=== PATIENT | female | born 1945 | race Caucasian/White ===

== ENCOUNTER 2017-07-19 08:30 | Inpatient (IN) | payer MEDICARE ==
[~2017-07-19] VITALS: Ht 157.4 cm; Wt 66.4 kg
--- NOTE | ~2017-07-19 | PR ---
[place], [place] PROGRESS NOTE NAME: HERBERT MAN [facility] #: [id number] UNIT #: [id number] ROOM: 419 DOCTOR: RENARD DILAN BIRTHDATE: [birth year] DOS: 07/21/2017 SUBJECTIVE: The patient was seen and examined at bedside. The patient was sitting upright, in no acute distress. The patient reports that she is feeling much better today compared to yesterday. The patient reports that she feels well enough to go home today if we feel that she is stable. The patient requests also to be able to follow up with Dr. Farnsworth as outpatient so that she can avoid having to come back to the hospital in the future. The patient reports that she has an intermittent dry cough that is not severe and that her shortness of breath and wheezing have improved dramatically since admission. OBJECTIVE: VITAL SIGNS: Temperature is 97.8, pulse is 72, respirations 18, blood pressure 120/62, pulse ox 94% on room air. HEENT: Eyes were clear. No injection. Mucous membranes were moist. Nares were patent. NECK: Supple, nontender. LUNGS: Mild wheezing. No crackles were appreciated. CARDIAC: Regular rate and rhythm. No murmurs, gallops or rubs. S1 and S2 were noted. ABDOMEN: Soft and nontender. Bowel sounds were present. MUSCULOSKELETAL: No edema. No erythema. No clubbing or cyanosis. NEUROLOGIC: Cranial nerves were intact. SKIN: No rashes. LABORATORY DATA: Sodium is 141, potassium 3.7, chloride 106, carbon dioxide 26, BUN 22, creatinine 0.89, glucose is 122. IMPRESSION: 1. History of tobacco abuse. The patient did well with the patch overnight and is going to try to quit smoking with the patch upon discharge. The patient has some anxiety and is worried that the patch may cause her to become more anxious. These issues were discussed with her and all of her questions were answered. 2. History of generalized anxiety disorder. 3. Mild obesity. 4. Chronic obstructive pulmonary disease with acute exacerbation. TREATMENT PLAN: At this time the patient can be discharged as she is medically stable. Discharged with a steroid taper and oral antibiotics and Diflucan. The patient to follow up with Dr. Farnsworth. The patient can call the office and schedule an appointment at her own leisure. DILAN GLYNN DO [place], [place] PROGRESS NOTE NAME: HERBERT MAN UNIT #: [id number] ROOM: 419 DOCTOR: DILAN GLYNN DO BIRTHDATE: [birth year] DEBORAH FARNSWORTH MD CM:PNZHANG [id number] DILAN GLYNN DO 07/21/17 1922 interface
--- NOTE | ~2017-07-19 | PROC NOTE ---
[place], [place] PROCEDURE NOTE NAME: HERBERT MAN UNIT #: [id number] ROOM: 419 DOCTOR: JOAN MOREL BIRTHDATE: [birth year] DOS: 07/20/2017 MODIFIED BARIUM SWALLOW. LOCATION: [facility], room 419, bed 1. ORDERING PHYSICIAN: Dr. Arreguin. RADIOLOGIST: Dr. Hahn. BACKGROUND INFORMATION: The patient, a 71-year-old female was seen for a modified barium swallow. This test was ordered to rule out aspiration due to right middle lobe pneumonia. The patient was admitted with increased shortness of breath. MEDICAL HISTORY: Significant for COPD exacerbation, depression, anxiety, diverticulitis and bladder prolapse. The patient denied any swallowing difficulty, but stated that at times when her mouth is dry, she finds it a little more difficult to get the food down. She currently receives a regular diet and thin liquids. Oral peripheral examination revealed presence of natural teeth which were in good condition. Lingual, labial, and buccal skills were within normal limits in terms of strength, range of motion, and coordination. The patient was able to volitionally cough and swallow. METHODS AND MATERIALS USED FOR THE EXAM: The patient was positioned in the lateral plane and the examination was viewed under fluoroscopy. The patient was presented with a variety of consistencies to assess swallowing skills including applesauce mixed with barium presented in half teaspoon amounts, barium-coated cookie given in bite size piece and thin liquid barium taken by cup and straw in her regular sip size amount. ORAL PHASE: Unremarkable. PHARYNGEAL PHASE: Unremarkable. ESOPHAGEAL PHASE: This phase of the swallow was not formally assessed during this exam. IMPRESSIONS AND RECOMMENDATIONS: Based upon assessment results, this 71-year-old patient presents with swallowing skills that are within normal limits. Recommend she remains on present diet. No followup therapy is warranted. Results and recommendations were shared with the patient and her nurse and they verbalized understanding. Thank you very much for this referral. Should you have any questions regarding this patient, please contact the speech pathologist at [phone]. [place], [place] PROCEDURE NOTE NAME: HERBERT MAN UNIT #: [id number] ROOM: 419 DOCTOR: JOAN MOREL BIRTHDATE: [birth year] JOAN MORLE CUCO ARREGUIN DO CM:LAITH:PROCEDURE NOTE [id number] JOAN MOREL
--- NOTE | ~2017-07-19 | PR ---
[place], [place] PROGRESS NOTE [id number] UN[facility] #: [id number] ROOM: 419 DOCTOR: JAVAD WALKER MD,DEBORAH BIRTHDATE: [birth year] DOS: 07/21/2017 PULMONARY ADDENDUM NOTE The patient was independently seen and examined with [id number] encounter today. SUBJECTIVE: The assessment was personally completed, physical examination performed. All the labs were reviewed. The decision for patient medical management and changes or recommendation personally made for today's visit. Note done by the medical attendant, was approved. The patient has been showing gradual reduction and improvement in respiratory symptoms including cough. Cough has been noted with the patient, nonproductive. However, the frequency and intensity of cough has been decreased. Shortness of breath and wheezing was also described reduced by the patient. OBJECTIVE: VITAL SIGNS: Reviewed was noted as normal vital signs. Pulse oxygen saturation on room air was 94% saturation. LUNGS: The patient noted with this reduction and improvement in the wheezing. At this time minimal wheezing was present. ABDOMEN: Soft, nontender. LABORATORY DATA: CT scan chest of the patient without contrast. The patient does not show any evidence of pulmonary infiltration or other abnormality including suspected nodules or mass lesions. PLAN OF MANAGEMENT: The patient could be considered for home discharge, tapering dose of prednisone, oral antibiotic, long-term management of COPD medication, outpatient assessment recommended, post-discharge. DEBORAH FARNSWORTH MD CM:PNTRANS [id number] DEBORAH WALKER MD 07/21/17 1520 interface
--- NOTE | ~2017-07-19 | CON ---
[place], [place] REPORT OF CONSULTATION [id number] UNIT #: [id number] ROOM: 419 DOCTOR: DEBORAH DAMIAN MD BIRTHDATE: [birth year] DOS: 07/20/2017 PULMONARY CONSULTATION, EVALUATION AND MANAGEMENT CONSULTATION REQUESTED BY: Hospitalist services. REASON FOR CONSULTATION: For assessment of shortness of breath. HISTORY OF PRESENT ILLNESS: This is a 71-year-old white female with past known history of COPD. The patient stated she has been experiencing increased anxiety symptoms for the last several days. She has been started on the Zoloft. The symptom has been noted progressively worsening. The patient's symptoms of shortness of breath has been noted significantly worsened. She was also noted with wheezing and nonproductive cough as well. The patient reported the symptoms of shortness of breath has been worsened because of the current anxiety disorder. She complained of excessive severe chest tightness. There were no symptoms of chest pain reported. The patient came into the hospital for further assessment because of worsening of the respiratory symptoms. The coughing has been noted worsened as well, noted to be nonproductive and severe at times. She is not able to expectorate any sputum. REVIEW OF SYSTEMS: CONSTITUTIONAL SYMPTOMS: Fatigue and tiredness noted without symptoms of fever or chills. EYES: Denies burning, redness, tenderness. EARS, NOSE, THROAT SYMPTOMS: Denies sore throat, hoarseness, otalgia, postnasal drainage or epistaxis. CARDIOVASCULAR: Denies anginal pain, edema, pain of the lower extremities, palpitations, or syncopal episodes. GASTROINTESTINAL: Dysphagia, nausea, vomiting, diarrhea, abdominal pain, hematemesis, melena, or hematochezia. SKIN: Denies lesions or rashes. GENITOURINARY SYMPTOMS: Denies dysuria, suprapubic pain, or hematuria. MUSCULOSKELETAL: Denies acute joint pain, redness, or tenderness. CENTRAL NERVOUS SYSTEM: Denies dizziness, headache, or diplopia. PSYCHIATRIC SYMPTOMS: Severe increased anxiety was described at this time. There were no symptoms of depression. Remaining systems were reviewed. They were noted all negative. PAST MEDICAL HISTORY: Reported as: 1. History of COPD. 2. Past history of tobacco use as well. 3. History of bronchial asthma, severity unknown. 4. History of major depression. PAST SURGICAL HISTORY: Reported as no past surgeries. SOCIAL HISTORY: She stated , has 2 children. Smoking, the patient started at younger age and smoking about a pack of cigarettes per day. Denies [place], [place] REPORT OF CONSULTATION NAME: HERBERT MAN UNIT #: [id number] ROOM: [facility] DOCTOR: DEBORAH DAMIAN MD BIRTHDATE: [birth year] history of alcohol use or any illicit drug use. FAMILY HISTORY: Both parents have been . The details were unknown. HOME MEDICATIONS: Listed as use of the ProAir HFA inhaler, Symbicort 80/4.5 HFA inhaler 2 puffs b.i.d., Ativan, lorazepam, Singulair 10 mg daily, Zoloft, recent prescription 50 mg daily and Spiriva 1 capsule inhalation daily. DRUG ALLERGIES: REPORTED ALLERGY TO SULFONAMIDES. PHYSICAL EXAMINATION: GENERAL: This is a 71-year-old female who has been noted somewhat anxious, but is sitting on the side of bed without any acute distress at time of the assessment. Height of the patient recorded as 5 feet 2 inches, weight 146 pounds, BMI 26.7. VITAL SIGNS: Normal temperature, respirations 15-20, heart rate 88-107, blood pressure 110/52. Pulse oxygen saturation on room air was 92% saturation. HEENT: Head was atraumatic. Eyes nonicterus. NECK: Supple. No discharge in the eyes. Oral mucosa was moist. CARDIOVASCULAR SYSTEM: S1, S2 audible without any added sounds. LUNGS: Diffuse reduction in breath sounds. Diffuse moderate to severe expiratory wheezing bilaterally. ABDOMEN: Soft, mild obesity. Bowel sounds present without any tenderness. SKIN: Visible. No lesions or rashes. MUSCULOSKELETAL SYMPTOMS: No deformities. CENTRAL NERVOUS SYSTEM: Cranial nerves 2-12 intact. MUSCULOSKELETAL: No deformities. LABORATORY DATA: The CBC that was done on admission yesterday in the Emergency Room was noted. Eosinophils elevated at 5.8, remaining CBC normal. Lactic acid noted yesterday normal. PT/PTT yesterday normal. CMP that was done yesterday, BUN 19, creatinine 1.09, sodium 135, remaining CMP was normal. The troponin in addition to assess the patient completed yesterday normal. The urine culture, no bacterial growth. PT/PTT, which were repeated again this morning normal. CBC this morning essentially noted as normal CBC at this time. The chest x-ray that was done one view was personally reviewed was noted with an asymmetrical film, possibility of the nodule or density in the right middle lobe cannot be excluded, may be exacerbated because somewhat nonsymmetrical film. The patient was also noted with mild scoliosis of the upper thoracic spine. IMPRESSION: The patient who has been currently admitted noted: 1. History of chronic nicotine dependence, presented with progressive worsening of the respiratory symptoms with acute exacerbation of chronic obstructive pulmonary disease with increased anxiety also occurred related to that. 2. History of generalized anxiety disorder and major depression, which has been treated by psychiatrist with different medication management. 3. History of mild obesity as well. PLAN OF MANAGEMENT: The patient will be continued on bronchodilator as ordered every [address] scan of the chest will be ordered to most definitively [place], [place] REPORT OF CONSULTATION NAME: HERBERT MAN UNIT #: [id number] ROOM: 419 DOCTOR: DEBORAH DAMIAN MD BIRTHDATE: [birth year] exclude any pulmonary problem such as infiltration, mass or lesion in the right middle lobe. Bronchodilators will be given as well 4 hours. Continue previous home medications as well. Continue use of the current antibiotic for community-acquired infection with the use of the Rocephin and Zithromax. Solu-Medrol will be continued at same dose 40 mg b.i.d. Continue Mucinex as well p.r.n. use. In addition, 1200 mg Mucinex tablet will be ordered b.i.d. to help clear secretion, sputum expectoration and endobronchial secretions. If necessary, consider fiberoptic bronchoscopy as well for additional assessment. Monitoring CT scan results closely for additional assessment and recommendation accordingly. Usual care, other supportive plan of therapy and care. Usual medical management as ongoing. Nicotine replacement patches to overcome the nicotine withdrawal has been suggested to this patient to be used. If the patient does expectorate sputum, certainly could be sent for Gram stain and culture as well. Thank you for allowing me to participate in the care of this patient. DEBORAH FARNSWORTH MD CM:CONSTR:REPORT OF CONSULTATION 1756 07/21/17 0425 interface
--- NOTE | ~2017-07-19 | CON ---
[place], [place] REPORT OF CONSULTATION NAME: HERBERT MAN UNIT #: [id number] ROOM: 419 DOCTOR: ELISABETH GIPSON ED.D YOUSIF) BIRTHDATE: [birth year] DOS: 07/19/2017 HISTORY OF PRESENT ILLNESS: The patient is a 71-year-old female referred by the hospitalist for an evaluation regarding her anxiety. At the present time, she is on the 4th floor at [facility]. The patient is and does have 2 children. She was engaged at one time, however, her fiance of a glioblastoma approximately 15 years ago. Since that time, she has been more depressed. 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 This patient's family physician is Dr. Price and medical history is pertinent for anxiety, depression, vitamin D deficiency, and COPD. Her medications include nebulizer with albuterol 3-4 times a day, Levaquin, DuoNeb, Solu-Medrol, Ativan, ProAir, Symbicort, and Spiriva. This patient does smoke 1 pack of cigarettes per day and drinks on occasion. She was awake, alert, and oriented in all three spheres. She states she would like to , but does not have any suicidal ideation or plan. Her short and long-term memory appear to be intact. Her insight, judgment, and concentration are fair. She is following with Adama Larsen, a nurse practitioner at the [facility]. She also has an appointment with therapist Adam next week. I strongly believe she needs long-term counseling. She did follow up in my office over the past several years on occasion and last time I saw her was probably last summer and she was doing much better when she was more active. She has been unable to work for the past 3-4 months due to her depression and anxiety. She stated that she was extremely anxious recently and could not control her anxiety. She was prescribed Zoloft and was feeling more anxious after she took Zoloft for approximately 3 days. She states that she had increased her breathing treatments and takes significant amounts of steroids. It appear to me that the increased breathing treatments have possibly exacerbated her anxiety. She did have anxiety prior to that, but it has been much worse since she did increase her breathing treatments. Obviously, Zoloft is not a good drug for this patient because she is fearful of it and does not want to take it again, although she said she would. She could possibly take Paxil or some other drug that was an antidepressant that would work in combination with the Ativan that she takes twice a day. She does need to continue with her outpatient psychotherapy. She is not suicidal, but has chronic depression. DIAGNOSIS: Major depressive disorder, recurrent. RECOMMENDATIONS: 1. The patient should continue to follow at the counseling center. 2. The patient should discuss her use of multiple steroid medications for her breathing with her hospitalist and primary care physician. Thank you very much for this consult. [place], [place] REPORT OF CONSULTATION NAME: HERBERT MAN UNIT #: [id number] ROOM: 419 DOCTOR: ELISABETH GIPSON ED.D (RADHA) BIRTHDATE: [birth year] ELISABETH GIPSON ED.D CM:CONSTR:REPORT OF CONSULTATION 1519 07/20/17 0147 interface
[~2017-07-19 08:30] MED LIST: ALBUTEROL0.09 MG/A2 IH; ALBUTEROL2.5 MG/0.5 INH; ATIVAN0.5 MG PO; ATROVENT I0.5 MG/2.5 INH; CENTRUM SILVER1 TA1 PO; KLONOPIN0.5 MG PO; LORAZEPAM0.5 MG PO; MACROBID100 M1 PO; MEDROL DOSEPAK4 MG PO; MELATONIN3 MG PO; Mysoline50 MG PO; NASONEX0.05 MG/AC NS; OSCAL,OYSTER S500 MG PO; PREDNISONE10 MG PO; PREDNISONE20 M1 PO; PROAIR HFA0.09 MG/AC INH; PROAIR HFA8.5 GM INH; PROZAC10 MG PO; PYRIDIUM200 M1 PO; SINGULAIR10 MG PO; VIBRAMYCIN100 MG PO; VIIBRYD40 PO; VISTARIL25 M2 PO; VITAMIN B1250 MCG PO; ZITHROMAX Z PA250 MG PO; ZITHROMAX250 MG PO; ZOLOFT100 MG PO; [UNRECOGNIZED DRUG - OTHER] PO
[2017-07-19] MEDS ORDERED: SPIRIVA -- 3018 MCG INH (08:41)
[2017-07-19] MEDS ORDERED: MONTELUKAST SOD10 MG PO (08:42)
[2017-07-19 08:43] VITALS: BP 153/79
[2017-07-19] MEDS ORDERED: SYMB80 INH (08:43)
[2017-07-19] MEDS ORDERED: PROAIR HFA8.5 GM INH (08:43)
[2017-07-19 09:22] LABS: BASO % 0.4 % (0.0-1.0); EOS # 0.6 10*3/uL (0.0-0.4); EOS % 5.8 % (1.0-4.0); HEMATOCRIT 43.3 % (37.0-47.0); HEMOGLOBIN 14.9 g/dl (12.0-16.0); LYMPH # 1.4 10*3/uL (1.3-4.4); MEAN CELL VOLUME 91.9 fl (81.0-99.0); MEAN CORPUSCULAR HGB 31.6 pg (27.0-31.0); MEAN CORPUSCULAR HGB CONC 34.4 g/dl (33.0-37.0); MEAN PLATELET VOLUME 9.8 fl (9.6-12.3); MONO # 0.6 10*3/uL (0.1-1.0); MONO % 5.9 % (3.0-9.0); NEUT # 6.9 10*3/uL (2.3-7.9); NEUT % 72.6 % (47.0-73.0); PLATELET COUNT AUTOMATED 317 10*3/uL (130-400); RED BLOOD COUNT 4.71 10*6/uL (4.10-5.10); RED CELL DISTRI WIDTH 12.3 % (0-14.5); WHITE BLOOD COUNT 9.5 10*3/uL (4.8-10.8)
[2017-07-19 09:31] LABS: ACT PARTIAL THROMBO TIME 22.3 SECONDS (20.8-31.5)
[2017-07-19 09:47] LABS: ALBUMIN 3.3 gm/dl (3.1-4.5); ALKALINE PHOSPHATASE 77 U/L (45-117); BUN 19 mg/dl (7-24); CHLORIDE 101 mmol/L (98-107); CREATININE 1.03 mg/dL (0.55-1.02); LIPASE 111 U/L (73-393); SGOT/AST 18 IU/L (3-35); SODIUM 135 mmol/L (136-145)
[2017-07-19 09:51] LABS: SGPT/ALT 26 U/L (12-78); TROPONIN I < 0.015 ng/ml (<0.045)
[2017-07-19 10:14] VITALS: BP 116/74
[2017-07-19] MEDS ORDERED: ZOLOFT50 MG PO (10:59)
[2017-07-19 11:03] VITALS: BP 131/77
[2017-07-19 13:19] LABS: BILIRUBIN NEGATIVE (NEGATIVE); BLOOD 2+ (NEGATIVE); CLARITY CLOUDY (CLEAR); COLOR YELLOW (YELLOW); GLUCOSE NEGATIVE (NEGATIVE); KETONE NEGATIVE (NEGATIVE); LEUKO ESTERASE 3+ (NEGATIVE); NITRITE POSITIVE (NEGATIVE); PH 5.5 (5.0-9.0); UROBILINOGEN 0.2 E.U./dl (0.2-1.0)
[2017-07-19] MEDS ORDERED: ATIVAN0.5 MG PO (13:19)
[2017-07-19 13:28] LABS: BACTERIA 4+; EPITHELIAL CELLS 15-20; WBC TNTC wbc/hpf (0-5)
[2017-07-19 16:00] VITALS: BP 130/57
[2017-07-19 20:00] VITALS: BP 110/52
[2017-07-20] VITALS: BP 111/54
[2017-07-20 07:19] LABS: HEMATOCRIT 38.5 % (37.0-47.0); HEMOGLOBIN 13.1 g/dl (12.0-16.0); MEAN CELL VOLUME 93.2 fl (81.0-99.0); MEAN CORPUSCULAR HGB 31.7 pg (27.0-31.0); MEAN PLATELET VOLUME 10.1 fl (9.6-12.3); PLATELET COUNT AUTOMATED 278 10*3/uL (130-400); RED BLOOD COUNT 4.13 10*6/uL (4.10-5.10); RED CELL DISTRI WIDTH 12.3 % (0-14.5); WHITE BLOOD COUNT 8.3 10*3/uL (4.8-10.8)
[2017-07-20 07:35] LABS: ALBUMIN 2.9 gm/dl (3.1-4.5); BUN 14 mg/dl (7-24); CHLORIDE 110 mmol/L (98-107); CHOLESTEROL 181 mg/dL (<200); CREATININE 0.73 mg/dL (0.55-1.02); PHOSPHOROUS 2.8 mg/dL (2.5-4.9); SGOT/AST 12 IU/L (3-35); SGPT/ALT 22 U/L (12-78); SODIUM 141 mmol/L (136-145)
[2017-07-20 07:43] LABS: ALKALINE PHOSPHATASE 60 U/L (45-117); FREE T4 1.29 ng/dl (0.76-1.46); HDL CHOLESTEROL 65 mg/dl (40-60); LDL CHOLESTEROL 105 mg/dL (9-159); THYROID STIM HORMONE (HS) 0.351 uIU/ml (0.358-4.75); TOTAL PROTEIN 5.9 gm/dL (6.4-8.2); TRIGLYCERIDES 56 mg/dl (<150); VLDL CHOLESTEROL 11 mg/dL (6-40)
[2017-07-20 08:00] VITALS: BP 116/57
[2017-07-20 08:00] LABS: ACT PARTIAL THROMBO TIME 21.5 SECONDS (20.8-31.5)
[2017-07-20 08:13] LABS: PLATELET SUFFICIENCY NORMAL (NORMAL); TOTAL CELLS COUNTED 100 #CELLS
[2017-07-20 08:44] LABS: VITAMIN D, 25-HYDROXY 23.4 ng/mL (30-100)
[2017-07-20 16:00] VITALS: BP 127/64
[2017-07-20 19:33] VITALS: BP 141/73
[2017-07-20 23:59] VITALS: BP 127/72
[2017-07-21 07:16] VITALS: BP 120/62
[2017-07-21 07:36] LABS: BUN 22 mg/dl (7-24); CHLORIDE 106 mmol/L (98-107); CREATININE 0.89 mg/dL (0.55-1.02); POTASSIUM 3.7 mmol/L (3.5-5.1); SODIUM 141 mmol/L (136-145)
[2017-07-21] MEDS ORDERED: PREDNISONE10 MG PO (10:53)
[2017-07-21] MEDS ORDERED: VITAMIN D-32000 UNI1 PO (10:53)
[2017-07-21] MEDS ORDERED: DOXYCYCLINE100 M3 PO (10:53)
[2017-07-21] MEDS ORDERED: HYDROXYZINE PAM25 M1 PO (10:53)
[2017-07-21] MEDS ORDERED: PAROXETINE10 MG PO (10:53)
[2017-07-21] MEDS ORDERED: FLUCONAZOLE100 MG PO (10:55)
== END 2017-07-21 13:16 | disposition home or self-care (01) | DRG 871 ==
LOC: ED 08:30 → 4E 09:40 → EDHOLD 09:40 → 4E 09:48
PROVIDERS: Emergency Medicine; Family Medicine; Student in an Organized Health Care Education/Training Program
PROC: BD11YZZ Fluoroscopy of Esophagus using Other Contrast (ICD-10-PCS; principal; 2017-07-20)
DX: A41.9 Sepsis, unspecified organism (principal); J18.1 Lobar pneumonia, unspecified organism; N17.0 Acute kidney failure with tubular necrosis; J44.0 Chronic obstructive pulmonary disease with (acute) lower respiratory infection; J44.1 Chronic obstructive pulmonary disease with (acute) exacerbation; E87.1 Hypo-osmolality and hyponatremia; F33.9 Major depressive disorder, recurrent, unspecified; R65.20 Severe sepsis without septic shock; E55.9 Vitamin D deficiency, unspecified; R73.9 Hyperglycemia, unspecified; F17.210 Nicotine dependence, cigarettes, uncomplicated; F41.1 Generalized anxiety disorder; Z88.2 Allergy status to sulfonamides; Z79.899 Other long term (current) drug therapy; Z71.6 Tobacco abuse counseling; Z68.26 Body mass index [BMI] 26.0-26.9, adult; E66.8 Other obesity

== ENCOUNTER 2017-09-20 13:55 | Emergency (ER) | payer MEDICARE ==
[~2017-09-20] VITALS: Ht 162.5 cm; Wt 68.0 kg
[~2017-09-20 13:55] MED LIST changes: +DOXYCYCLINE100 M3 PO; +FLUCONAZOLE100 MG PO; +HYDROXYZINE PAM25 M1 PO; +MONTELUKAST SOD10 MG PO; +PAROXETINE10 MG PO; +SPIRIVA -- 3018 MCG INH; +SYMB80 INH; +VITAMIN D-32000 UNI1 PO; +ZOLOFT50 MG PO
[2017-09-20] MEDS ORDERED: STIOLTO RESPIMAT4 GM INH (13:59)
[2017-09-20 14:04] VITALS: BP 155/81
[2017-09-20 14:24] LABS: HEMATOCRIT 45.7 % (37.0-47.0); HEMOGLOBIN 15.2 g/dl (12.0-16.0); MEAN CELL VOLUME 94.4 fl (81.0-99.0); MEAN CORPUSCULAR HGB 31.4 pg (27.0-31.0); MEAN CORPUSCULAR HGB CONC 33.3 g/dl (33.0-37.0); MEAN PLATELET VOLUME 9.4 fl (9.6-12.3); PLATELET COUNT AUTOMATED 285 10*3/uL (130-400); RED BLOOD COUNT 4.84 10*6/uL (4.10-5.10); WHITE BLOOD COUNT 6.8 10*3/uL (4.8-10.8)
[2017-09-20 14:40] LABS: BUN 12 mg/dl (7-24); CHLORIDE 103 mmol/L (98-107); CREATININE 1.12 mg/dL (0.55-1.02); SODIUM 138 mmol/L (136-145)
[2017-09-20 14:41] LABS: TROPONIN I < 0.015 ng/ml (<0.045)
[2017-09-20 14:51] LABS: BASOPHILS 1 % (0-1); PLATELET SUFFICIENCY NORMAL (NORMAL); TOTAL CELLS COUNTED 100 #CELLS
[2017-09-20] MEDS ORDERED: VIBRAMYCIN100 MG PO (15:05)
[2017-09-20] MEDS ORDERED: PREDNISONE50 MG PO (15:05)
[2017-09-20 15:13] LABS: BILIRUBIN NEGATIVE (NEGATIVE); BLOOD 1+ (NEGATIVE); CLARITY CLEAR (CLEAR); COLOR YELLOW (YELLOW); GLUCOSE TRACE (NEGATIVE); KETONE NEGATIVE (NEGATIVE); LEUKO ESTERASE NEGATIVE (NEGATIVE); NITRITE NEGATIVE (NEGATIVE); PH 5.5 (5.0-9.0); UROBILINOGEN 0.2 E.U./dl (0.2-1.0)
[2017-09-20 15:26] LABS: BACTERIA 2+; EPITHELIAL CELLS 25-30
== END 2017-09-20 15:49 | disposition home or self-care (01) ==
LOC: ED 13:55
PROVIDERS: Emergency Medicine
DX: J44.1 Chronic obstructive pulmonary disease with (acute) exacerbation (principal); R74.0 Nonspecific elevation of levels of transaminase and lactic acid dehydrogenase [LDH]; F17.200 Nicotine dependence, unspecified, uncomplicated; Z79.899 Other long term (current) drug therapy; Z87.01 Personal history of pneumonia (recurrent); Z88.2 Allergy status to sulfonamides

== ENCOUNTER 2017-10-02 19:03 | Emergency (ER) | payer MEDICARE ==
[~2017-10-02] VITALS: Ht 157.4 cm; Wt 69.9 kg
[~2017-10-02 19:03] MED LIST changes: +PREDNISONE50 MG PO; +STIOLTO RESPIMAT4 GM INH
[2017-10-02] MEDS ORDERED: BUPROPION HCL150 M1 PO (19:10)
[2017-10-02] MEDS ORDERED: DIAZEPAM10 M1 PO (19:10)
[2017-10-02 19:55] LABS: BASO # 0.1 10*3/uL (0.0-0.1); BASO % 0.7 % (0.0-1.0); EOS # 0.7 10*3/uL (0.0-0.4); HEMATOCRIT 46.4 % (37.0-47.0); HEMOGLOBIN 14.8 g/dl (12.0-16.0); LYMPH # 2.3 10*3/uL (1.3-4.4); LYMPH % 24.6 % (27.0-41.0); MEAN CELL VOLUME 97.1 fl (81.0-99.0); MEAN CORPUSCULAR HGB CONC 31.9 g/dl (33.0-37.0); MEAN PLATELET VOLUME 9.6 fl (9.6-12.3); MONO # 0.8 10*3/uL (0.1-1.0); MONO % 8.1 % (3.0-9.0); NEUT # 5.6 10*3/uL (2.3-7.9); NEUT % 58.6 % (47.0-73.0); PLATELET COUNT AUTOMATED 273 10*3/uL (130-400); RED BLOOD COUNT 4.78 10*6/uL (4.10-5.10); WHITE BLOOD COUNT 9.5 10*3/uL (4.8-10.8)
[2017-10-02 20:11] LABS: ALBUMIN 3.5 gm/dl (3.1-4.5); ALKALINE PHOSPHATASE 62 U/L (45-117); BUN 17 mg/dl (7-24); CHLORIDE 103 mmol/L (98-107); CREATININE 0.97 mg/dL (0.55-1.02); POTASSIUM 4.5 mmol/L (3.5-5.1); SGOT/AST 18 IU/L (3-35); SGPT/ALT 22 U/L (12-78); SODIUM 140 mmol/L (136-145); TOTAL PROTEIN 6.7 gm/dL (6.4-8.2)
[2017-10-02 20:29] VITALS: BP 119/77
[2017-10-02] MEDS ORDERED: PREDNISONE10 MG PO (20:59)
[2017-10-02] MEDS ORDERED: DUONEB 3 MG/3 ML3 M1 INH (20:59)
== END 2017-10-02 21:30 | disposition home or self-care (01) ==
LOC: ED 19:03
PROVIDERS: Physician Assistant
DX: J44.1 Chronic obstructive pulmonary disease with (acute) exacerbation (principal); Z88.2 Allergy status to sulfonamides; Z79.899 Other long term (current) drug therapy

== ENCOUNTER 2017-11-25 12:14 | Emergency (ER) | payer MEDICARE ==
[~2017-11-25] VITALS: Ht 157.4 cm; Wt 70.3 kg
[~2017-11-25 12:14] MED LIST changes: +ATORVASTATIN CA20 M1 PO; +BUPROPION HCL150 M1 PO; +DIAZEPAM10 M1 PO; +DUONEB 3 MG/3 ML3 M1 INH; +PAROXETINE40 MG PO; +PAXIL40 M1 PO; +POTASSIUM CHLO20 ME3 PO; +VALIUM10 MG PO; +VITAMIN D31000 UNI1 PO; +WELLBUTRIN SR150 MG PO
[2017-11-25 13:08] LABS: BASO # 0.1 10*3/uL (0.0-0.1); BASO % 0.5 % (0.0-1.0); EOS # 0.1 10*3/uL (0.0-0.4); EOS % 1.2 % (1.0-4.0); HEMATOCRIT 46.7 % (37.0-47.0); HEMOGLOBIN 15.2 g/dl (12.0-16.0); LYMPH # 1.7 10*3/uL (1.3-4.4); LYMPH % 15.9 % (27.0-41.0); MEAN CELL VOLUME 95.3 fl (81.0-99.0); MEAN CORPUSCULAR HGB CONC 32.5 g/dl (33.0-37.0); MONO # 0.8 10*3/uL (0.1-1.0); NEUT # 8.1 10*3/uL (2.3-7.9); NEUT % 74.6 % (47.0-73.0); PLATELET COUNT AUTOMATED 342 10*3/uL (130-400); RED CELL DISTRI WIDTH 13.5 % (0-14.5); WHITE BLOOD COUNT 10.9 10*3/uL (4.8-10.8)
[2017-11-25 13:19] LABS: ACT PARTIAL THROMBO TIME 22.8 SECONDS (20.8-31.5)
[2017-11-25 13:24] LABS: ALBUMIN 3.6 gm/dl (3.1-4.5); ALKALINE PHOSPHATASE 73 U/L (45-117); BUN 15 mg/dl (7-24); CHLORIDE 103 mmol/L (98-107); LIPASE 120 U/L (73-393); POTASSIUM 4.5 mmol/L (3.5-5.1); SGOT/AST 21 IU/L (3-35); SGPT/ALT 31 U/L (12-78); SODIUM 138 mmol/L (136-145); TOTAL PROTEIN 6.9 gm/dL (6.4-8.2)
[2017-11-25 13:27] LABS: TROPONIN I < 0.015 ng/ml (<0.045)
[2017-11-25 13:28] LABS: ETHYL ALCOHOL < 3.0 mg/dl (<3)
[2017-11-25 13:28] LABS: BILIRUBIN NEGATIVE (NEGATIVE); BLOOD 1+ (NEGATIVE); CLARITY SL CLOUDY (CLEAR); COLOR YELLOW (YELLOW); GLUCOSE NEGATIVE (NEGATIVE); KETONE NEGATIVE (NEGATIVE); LEUKO ESTERASE NEGATIVE (NEGATIVE); NITRITE NEGATIVE (NEGATIVE); SPECIFIC GRAVITY 1.025 (1.005-1.030); UROBILINOGEN 0.2 E.U./dl (0.2-1.0)
[2017-11-25 13:36] LABS: URINE AMPHETAMINES < 1000 (1000ng/ml); URINE BARBITURATES < 200 (200ng/ml); URINE BENZODIAZEPINES > 200 (200ng/ml); URINE CANNABINOIDS (THC) < 50 (50ng/ml); URINE COCAINE < 300 (300ng/ml); URINE METHADONE < 300 (300ng/ml); URINE OPIATES < 300 (300ng/ml)
[2017-11-25 13:41] LABS: BACTERIA 2+; EPITHELIAL CELLS 16-20; RBC 0-2 rbc/hpf (0-2); WBC 0-2 wbc/hpf (0-5)
[2017-11-25 13:43] LABS: URINE PHENCYCLIDINE < 25 (25ng/ml)
[2017-11-25 14:25] VITALS: BP 136/74
[2017-11-25] MEDS ORDERED: PROAIR HFA8.5 GM INH (16:11)
== END 2017-11-25 14:50 | disposition admitted as inpatient to this hospital (09) ==
LOC: ED 12:14
PROVIDERS: Emergency Medicine
DX: F33.9 Major depressive disorder, recurrent, unspecified (principal); J45.909 Unspecified asthma, uncomplicated; F41.9 Anxiety disorder, unspecified; J44.1 Chronic obstructive pulmonary disease with (acute) exacerbation; E78.00 Pure hypercholesterolemia, unspecified; Z88.2 Allergy status to sulfonamides; Z79.899 Other long term (current) drug therapy

== ENCOUNTER 2017-11-25 14:36 | Inpatient (IN) | payer MEDICARE ==
[~2017-11-25] VITALS: Ht 157.4 cm; Wt 69.9 kg
--- NOTE | ~2017-11-25 | PR ---
[place], [place] PROGRESS NOTE NAME: HERBERT MAN [facility] #: [id number] UNIT #: [id number] ROOM: 312 DOCTOR: ADRIENNE MAYES DO BIRTHDATE: [birth year] DOS: 11/30/2017 CHIEF COMPLAINT: "I can't get rid of this feeling of depression." SUMMARY OF VISIT: The patient is a 72-year-old female who was admitted to [facility], currently on hospital day #5 due to worsening depression and no longer attending to her ADLs. The patient was interviewed this morning in the dining room. She appeared to be in no distress. She was eating breakfast at that time. The patient reported poor sleep last night. She contributed to her anxiety. She also was concerned about nausea; however, per nursing staff, the patient slept more than 8 hours uninterrupted. We discontinued her Klonopin a.m. dose. The patient appears to be concerned about her lab work. This has been reviewed with her. Of note, the patient states she has never been evaluated by a GI doctor for any form of evaluation for her abdominal pain. Today, the patient appears tired, stating that she will "be struggling today to stay awake." We reassured her that we would adjust medications to ensure she has more restful sleep. The patient voiced understanding and she did not voice any other concerns at that time. MENTAL STATUS EXAMINATION: The patient is alert and oriented to person, place and time. Mood is overwhelmingly depressed and her affect is flat and blunted. However, she does readily engage in conversation. Her speech is slow, paused; however, it is appropriate response to questions. She is able to voice her concerns. No signs of eliel or hypomania. No signs of auditory or visual hallucinations. Short term memory appears to be intact. PLAN: 1. We have increased Provigil from 100 mg daily to 200 mg q.a.m. 2. We will start the patient on triazolam 0.25 mg at bedtime. We checked her ammonia level this morning and it was less than 10. RPR is nonreactive. 3. Yesterday, the patient complained of a rash under her breast. Nystatin was started and ordered by the hospitalist team, they are managing this concern. 4. The patient was noted to have an elevated antimitochondrial antibody at 45.7. This is concerning for a differential diagnosis of primary biliary cirrhosis. This will be further managed by the Internal Medicine hospitalist team. The patient states she has never been evaluated by a GI doctor for any concerns. 5. Disposition: The patient likely to be discharged Wednesday, December 03 depending on medical and psychiatric status. However, if Wednesday discharge is not possible, early next week, 12/06/2017, will likely be the day of discharge pending on psychiatric status at that time. She is scheduled to return home. Until then, we will continue to engage the patient in individual and doshi milieu activity, returning to the least restrictive environment when psychiatrically stable. Adrienne Mayes DO [place], [place] PROGRESS NOTE NAME: HERBERT MAN Mona UNIT #: [id number] ROOM: [facility] DOCTOR: ADRIENNE MAYES DO BIRTHDATE: [birth year] HOSEA MERCEDES MD CM:JULIETA 1007 [id number] ADRIENNE MAYES DO 11/30/17 1143 interface
--- NOTE | ~2017-11-25 | PR ---
[place], [place] PROGRESS NOTE NAME: HERBERT MAN [facility] #: [id number] UNIT #: [id number] ROOM: 312 DOCTOR: JENNIFER DELUCA MD BIRTHDATE: [birth year] DOS: 11/27/2017 PSYCHIATRIC PROGRESS NOTE SUBJECTIVE: The patient seen and spoke with the staff. Per staff, the patient is doing better. No behavior problems or issues. Medication compliant. The patient was pleasant and cooperative. She was in the day area. She reports being depressed and down. She said things are not going well in her life. She talked about her son's upcoming surgery. She is taking her medication regularly and did not have any side effect. She reported good sleep and appetite. MENTAL STATUS EXAMINATION: Pleasant, cooperative, described her mood as "down." Affect was flat, constricted. Thought process goal directed. No flight of ideas or loosening of association. She denied auditory or visual hallucination. No delusion or paranoia noted. She denied suicidal ideation, intent or plan. She also denies any homicidal ideation, intent or plan. 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 PLAN: 1. Continue current medications and care. 2. Encourage activities in groups. 3. Continue 1:1 therapy, psychoeducation and coping skill. 4. Continue supportive care. JENNIFER DELUCA MD CM:PNTRANS 1734 19 JENNIFER DELUCA MD 11/27/17 2019 interface
--- NOTE | ~2017-11-25 | DS ---
[place], [place] DISCHARGE SUMMARY NAME: HERBERT MAN [facility] #: [id number] UNIT #: [id number] ROOM: 312 DOCTOR: ADRIENNE DUMONT DO BIRTHDATE: [birth year] DOS: 12/03/2017 CHIEF COMPLAINT: "I just have been so depressed and so stressed out, I don't know what to do. I do not know where to start. I just want to sleep." HISTORY OF PRESENT ILLNESS: This is a 72-year-old white female who was admitted to the [facility] due to worsening depression to the point where she was no longer able to attend to her own ADLs. 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 The patient reports increased anxiety and fear on a day to day basis. She states that she recently was taken off of Effexor and this has been contributing to her increased appetite. She states she becomes hungry every 3 hours and will eat a large meal; however, she quickly becomes hungry again, this is out of the norm for the patient. She has recently been following under the care of comprehensive psychiatric care. She was prescribed Paxil and Wellbutrin and she states neither of these have been effective. She is being admitted to the [facility] unit to rule out any organic factors and currently admitted with a diagnosis of major depression, recurrent. She is being admitted also to rule out any organic causes to her psychiatric and medical status. PAST MEDICAL HISTORY: Remarkable for COPD, hyperlipidemia, vitamin D deficiency, history of nicotine abuse, asthma and COPD exacerbation. SOCIAL HISTORY: The patient currently lives at home alone. She has a son who has recently been diagnosed with a condition that requires surgery. The patient states this has increased her anxiety overall and attributes it to her difficulty sleeping. No known history of drug or alcohol abuse. The patient does state she smokes 1 pack of cigarettes per day. PAST PSYCHIATRIC HISTORY: Includes anxiety. STRENGTHS: The patient is ambulatory and relatively healthy. She has very good verbal skills. She is able to voice her needs. ALLERGIES: The patient has a known allergy to SULFA. SUMMARY OF HOSPITAL COURSE: The patient was admitted to the [facility] with a diagnosis of major depression, recurrent and severe anxiety disorder, not otherwise specified. At that time, it was decided that the Wellbutrin should be discontinued along with Paxil since they were both ineffective. She was started on Viibryd 10 mg a day with the plan to titrate from 10 mg to 20 mg and increase as needed and as tolerated. She was started on Klonopin, which she takes at home, home doses include 0.5 mg in the morning and 1 mg at bedtime, a higher dose was initiated at bedtime to aid in her sleep. She was also started on Rozerem 8 mg at bedtime. The patient reported melatonin did improve her sleep quality at home. We will continue to rule out other causes as this included checking TSH level, ____ antibodies were also ordered to rule out any other organic factors. Over the weekend no changes were made to [place], [place] DISCHARGE SUMMARY NAME: HERBERT MAN UNIT #: [id number] ROOM: 312 DOCTOR: ADRIENNE DUMONT DO BIRTHDATE: [birth year] her psychotropic regimen as she was tolerating the regimen well without side effects. She reported good sleep and increased appetite. Her affect was still flat and constricted; however, she had an improved mood overall. She was compliant with medications throughout the stay. On Wednesday11/29/2017, the patient complained of increased fatigue, increased depression, lack of energy and anhedonia. At that time, it was decided to discontinue her Rozerem in case it was causing daytime somnolence and her aircraft armorer dose of Klonopin was also discontinued. Viibryd was increased from 10 mg to 20 mg at bedtime in order to combat depressive symptomology and Provigil 100 mg was added in order to increase alertness and to provide more mood stabilization and energy. The patient continued to engage in group therapy. The following day, the patient continued to have overwhelming feelings of depression, her affect remained flat and blunted. At that point, it was decided to increase Provigil from 100 mg daily to 200 mg q.a.m. She was started on triazolam 0.25 mg at bedtime. RPR was found to be nonreactive. It was also noted at that time that she had an elevated antimitochondrial antibody at 45.7. This is concerning for differential diagnosis to include primary biliary cirrhosis. This was relayed to the internal medicine hospitalist team who are managing her other medical comorbid conditions. They had started her on nystatin for the rash that she had under her breasts at that time as well. The patient continued to have poor sleep and it was decided to continue her inpatient hospitalization. At that time, she was in agreement with the plan. The patient continued to be apprehensive and scared about returning home. She continued to have increased anxiety. There were no signs of eliel or hypomania at that time. However, we did increase her Viibryd from 20 mg p.o. at bedtime to 40 mg p.o. at bedtime. Ativan p.r.n. had been given due to increased anxiety and it proved to be effective. Yesterday, the patient continued to complain of difficulty sleeping and triazolam was increased from 0.125 mg at bedtime to 0.25 mg at bedtime to promote better sleep. On the day of discharge, the patient reports increased sleep, appetite and sleep have both normalized. She has allowed the staff to attend to her ADLs without being combative or resisting their assistance. She did not exhibit any side effects from the medication and has sufficiently improved in order to return home. The patient was provided with extensive counseling on how to manage her racing thoughts and how to cope with her increased family stressor of her son undergoing surgery. The patient voiced understanding and feels comfortable to go home as well. She is in agreement with plan. All questions were answered and she voiced understanding. MENTAL STATUS AT DISCHARGE: The patient is alert and oriented to self, place and time. Mood is trending towards euthymia. Affect is appropriate. She is no longer tearful. Her thoughts are organized and not disjointed. She continues to have excellent verbal skills. She appears more energetic today. Short-term and long-term memory appeared to be fully intact. There are no signs of eliel or hypomania. No signs of auditory or visual hallucinations. The patient has been attending to her ADLs without any trouble. She has been compliant with medication. Overall, her mood has improved after altering her psychotropic regimen. FINAL DIAGNOSES AT DISCHARGE: 1. Major depressive disorder, recurrent. [place], [place] DISCHARGE SUMMARY NAME: [facility]BERT MAN [facility] [id number] UNIT #: [id number] ROOM: 312 DOCTOR: ADRIENNE DUMONT DO BIRTHDATE: [birth year] 2. Generalized anxiety disorder. 3. Elevated antimitochondrial antibodies. The patient has been instructed that she will need to follow up with GI on an outpatient setting for further management of this lab finding. This is being managed and coordinated by the internal medicine hospitalist team. DISPOSITION: The patient to be discharged today, 12/03/2017, to return home. She is medically and psychiatrically stable at this time to return home. The following controlled substances have been printed and these prescriptions have been placed in her chart for her to take with her upon discharge. She is being discharged on clonazepam 1 mg tablet p.o., Provigil 100 mg tablet p.o. daily and triazolam 0.25 mg p.o. at bedtime. All other psychotropic prescriptions that are not controlled have been e-prescribed to her pharmacy ____. The patient is now psychiatrically stable for discharge home. Outpatient followup has been managed and coordinated with the strategic planner and social work. The patient is in agreement with plan and she verbalizes the need to follow up in an outpatient status. She is in agreement with plan and we are currently waiting for her son to come and pick her up to provide transport back home. Adrienne Dumont DO HOSEA MERCEDES MD CM:CHERYLE [id number] ADRIENNE DUMONT DO 12/03/17 1940 interface
--- NOTE | ~2017-11-25 | PR ---
[place], [place] PROGRESS NOTE NAME: HERBERT MAN [facility] #: [id number] UNIT #: [id number] ROOM: 312 DOCTOR: ADRIENNE MAYES DO BIRTHDATE: [birth year] DOS: 12/01/2017 She is a 72-year-old female. CHIEF COMPLAINT: "I am apprehensive and scared about going home." SUMMARY OF VISIT: The patient is a 72-year-old female who was admitted to [facility]. Currently on hospital day #6 due to worsening depression and no longer attending to her ADLs. The patient this morning was interviewed in her room. She did not appear to be in any distress. She was receiving her morning medications at that time. She did report improvement in her sleep last night and decrease in her overall anxiety. However, she did state that she was concerned about going home. She said "I am scared about taking a sleeping pill at home and not waking up." The patient was reassured that we would be adjusting her medications to ensure that the lowest dose of sleep aids were included in her discharge home meds. We assured her that she may be experiencing difficulty in sleeping here in the unit, but that once home she may have improved sleep due to decrease interruptions. The patient also stated that the day that she was admitted to the [facility] was a day that she was retiring from work. She continued to explain that she was concerned about finding a new routine as she would not have to go to work. We encouraged her to find other outlets to establish routine including volunteering which she verbalized would be something she would be interested in. The patient at this time did not voice any other somatic complaints. She appeared more euthymic, but decreased anxiety. She did express her desire to go home. The patient was later interviewed in a quiet room with Dr. Mercedes at that point she complained of ringing in her ears. She states she has had this before. However, upon medication review no medications we have started have been associated with tinnitus. The patient states she will let us know if this worsens; however, she says it is very subtle. We also explained to her that we had relayed to the hospitalist internal medicine team. Her lab findings and that they would be coordinating outpatient management for the elevated antimitochondrial antibodies. The patient voiced understanding and she did not voice any other concerns at that time. MENTAL STATUS EXAMINATION: The patient is alert and oriented to person, place and time. Her mood is trending towards euthymic; however, she does appear to have mild tones of anxiety. Her speech is not as slow nor is it paused, it is organized and not disjointed. She is able to clearly voice her concerns. She appears to be improved overall, less tired, less fatigued. The patient agreed with this assessment as well. She is looking forward to going home; however, we stated we reminded her that if she did not feel comfortable going home on Wednesday that she is to tell us so that we can continue her therapy inpatient. She voiced understanding. Short term memory appears to be intact. No signs of eliel, hypomania. No signs of auditory or visual hallucinations. The patient has been attending her ADLs without any problems. PLAN: 1. We have increased her Viibryd from 20 mg p.o. at bedtime to 40 mg p.o. at bedtime, order for Ativan p.r.n., scheduled for 1 mg q. 4h p.o. p.r.n. for anxiety and agitation have been renewed. [place], [place] PROGRESS NOTE NAME: HERBERT MAN UNIT #: [id number] ROOM: 312 DOCTOR: ADRIENNE MAYES DO BIRTHDATE: [birth year] 2. The patient was noted to have an elevated antimitochondrial antibody of 45.7. This has been relayed to the internal medicine hospitalist team and they are currently managing this condition. The patient likely to be set up to follow up with GI doctor in an outpatient setting upon discharge. The patient voiced understanding and was in agreement with that plan. 3. Disposition: The patient likely to be discharged on Wednesday12/03/2017 pending on medical and psychiatric status. The patient was reminded that if she did not feel prepared to go home and was still anxious that she may extend her stay and we could discharge early in the week such as Wednesday12/06/2017 pending on her psychiatric status at that time. The patient felt more relaxed and agreed to this plan and she states she is scared, but eager to go home at the same time. She is cooperative with exam and willing to try an increase in psychotropic regimen at this time. Until then, we will continue to engage the patient in individual and doshi milieu activity, returning to the least restrictive environment when psychiatrically stable. Adrienne Mayes DO HOSEA MERCEDES MD CM:JULIETA [id number] ADRIENNE MAYES DO 12/02/17 0615 interface
--- NOTE | ~2017-11-25 | PR ---
[place], [place] PROGRESS NOTE [id number] UNIT #: [id number] ROOM: 312 DOCTOR: HOSEA MERCEDES MD BIRTHDATE: [birth year] DOS: 11/29/2017 CHIEF COMPLAINT: "I don't know doctor, I am just so tired, I can go to sleep at the drop of the hat." SUMMARY OF THE VISIT: The patient was interviewed as she was eating her breakfast slowly. She reported to me that she was very fatigued and she is still feeling increasingly depressed, lacks energy and desire. She does report she sleeps well at night, but also then states all she wants to do is sleep. MENTAL STATUS: She remains alert and oriented with some time gaps. Mood is overwhelmingly depressed. Affect is flat and blunted with a constricted range. She is very ____ and lacks very much any motivation. There is no hypomania or eliel noted. There are no gross psychotic symptoms. No auditory or visual hallucinations. No delusions. Short term memory has very mild gaps, otherwise she is fully intact. PLAN: I will discontinue her Rozerem in case this is causing any daytime somnolence and discontinue her early childhood educator aide dose of Klonopin. I will increase her Viibryd from 10 to 20 mg at bedtime trying to combat the depressive symptomatology and add Provigil 100 mg in the morning as an alertness agent to give her more energy and desire. We will monitor and support, engage in individual and milieu activity, returning then to the least restrictive environment when psychiatrically stable. HOSEA MERCEDES MD CM:PNTRANS [id number] HOSEA MERCEDES MD 11/29/17 0932 interface
--- NOTE | ~2017-11-25 | WRIGHTHP ---
[place], [place] PATIENT HISTORY AND PHYSICAL EXAM NAME: HERBERT MAN [facility] #: [id number] UNIT #: [id number] ROOM: 312 DOCTOR: HOSEA MERCEDES MD BIRTHDATE: [birth year] DOS: 11/26/2017 CHIEF COMPLAINT: "I have just been so depressed and so stressed out, I don't know what to do." HISTORY OF PRESENT ILLNESS: This is a 72-year-old white female known to me from my previous practice in [place], [place] as well as a previous admission here to the [facility]. The patient presented to the emergency room at [facility] with a chief complaint of worsening depression to the point where she was no longer able to attend to her own ADLs. She reports poor sleep with difficulty falling asleep, sleep continuity disturbance, blind aide awakening, anergia, anhedonia, hopeless, helpless feelings, crying spells, and inability to cope. The anxiety that she has is overriding and it is a constant fear that she experiences on a day to day basis. The patient also endorses some bizarre physical elements and states that since she came off Effexor, she will have periods that occur every 3 hours where she becomes ravenously hungry and can eat an entire meal. This has been somewhat problematic for her, although despite this ravenous appetite, she reports her weight has remained stable. Most recently psychiatrically she has been followed at [facility] and has been prescribed Paxil and Wellbutrin, which neither has been effective. She is admitted now to rule out any organic factors, to engage in individual and doshi milieu activities and to restabilize on medication. PAST MEDICAL HISTORY: Remarkable for COPD, hyperlipidemia, vitamin D deficiency, and a history of nicotine abuse. SOCIAL HISTORY: The patient does not drink alcohol or use illicit drugs. She does smoke 1 pack of cigarettes per day. STRENGTHS: The patient is ambulatory, relatively healthy and has good verbal skills. MENTAL STATUS: She is alert and oriented. Mood does seem to be extremely depressed with anxious overtones. She endorses multiple neurovegetative symptoms. There is no hypomania or eliel. There are no overt auditory or visual hallucinations. No delusions, no paranoia. Memory for the most part is intact, although there are some small gaps noted. DIAGNOSES: Major depression, recurrent, severe; anxiety disorder, not otherwise specified. PLAN: I have discontinued Paxil and Wellbutrin due to ineffectiveness. I have started her on Viibryd 10 mg a day, which I want to shift to bedtime, plan to titrate the Viibryd from 10 to 20 and ultimately to 40 as needed and as tolerated. I will start her on Klonopin, which she was on at home at a dose of 0.5 mg in the morning and 1 mg at bedtime, utilizing the higher dose at bedtime to aid sleep. I will also start her on Rozerem 8 mg at bedtime. The patient reports having taken melatonin at home with good results. We will continue working her up organically, check TSH, antithyroid and antimicrosomal antibodies [place], [place] PATIENT HISTORY AND PHYSICAL EXAM NAME: HERBERT MAN UNIT #: [id number] ROOM: [facility] DOCTOR: HOSEA MERCEDES MD BIRTHDATE: [birth year] as well as other laboratory screening examinations. I will defer to the hospitalist for any further workup regarding her physical status. We will engage in individual and doshi milieu activity with the plan to return home when psychiatrically stable. HOSEA MERCEDES MD CM:HISPHYS:PATIENT HISTORY AND PHYSICAL EXAMINATION [id number] HOSEA MERCEDES MD 11/26/17 1150 interface
--- NOTE | ~2017-11-25 | PR ---
[place], [place] PROGRESS NOTE NAME: HERBERT MAN [facility] #: [id number] UNIT #: [id number] ROOM: 312 DOCTOR: ADRIENNE MAYES DO BIRTHDATE: [birth year] DOS: 12/02/2017 CHIEF COMPLAINT: "I fell asleep right about the time it was time to get up this morning." SUMMARY OF VISIT: The patient is a 72-year-old female who was admitted to the [facility] due to worsening depression, currently on hospital day #7 with persistent anxiety. The patient was interviewed this morning in the dining room. We walked over to a quiet room to further interview the patient. We discussed with her, her concerns and she stated that last night she had poor sleep due to her inability to stop thinking about "life situations that I can do nothing about." She is still complaining of nausea and anxiety. We asked the patient if her difficulty with falling asleep was due to the noise level in the lutz as we have recently admitted another patient who is in the neighboring room with the patient, who per nursing staff, was yelling throughout the night. The patient stated that the other patient did not disrupt her sleep as that other patient was quiet throughout the night. She reiterated that her inability to sleep was due to intrusive thoughts of anxiety regarding her current life stressors. The patient reports having difficulty thinking clearly this morning as she is tired. She requested to be allowed to take a nap today, to not attend the activity groups so that she may nap. We thought this was a reasonable and understandable request, which was granted. The patient was informed that we would be increasing and adjusting the Halcion strength to promote better sleep quality tonight. The patient was informed that if she would agree to stay today, she will be discharged tomorrow, Wednesday, December 03. The patient agreed to plan. She did not voice any other concerns at this time. The patient was then escorted back to the dining room where she continued to eat her breakfast. MENTAL STATUS EXAMINATION: The patient is alert and oriented to person, place and time. Her mood does appear more distressed, fatigued and sad. Her speech rate and context of her conversation were appropriate. Her thoughts were organized and not disjointed. She was able to clearly voice her concerns. Her overall mood appeared to be filled with mild anxiety; however, she did state that she is looking forward to going home. She just simply reported that because she had not slept well last night, she was feeling tired this morning. Short-term and long-term memory appeared to be fully intact. No signs of eliel, hypomania. No signs of auditory or visual hallucinations. The patient has been attending her ADLs without any trouble. She is medication compliant. PLAN: 1. We have increased the triazolam from 0.125 mg at bedtime to 0.25 mg at bedtime today in order to promote better sleep. 2. The patient was noted to have increased antimitochondrial antibodies. This is being managed by the internal medicine hospitalist team. 3. Disposition, the patient likely to be discharged tomorrow, Wednesday12/03/2017 depending on medical and psychiatric status at that time. The patient was granted the ability to take a nap this afternoon due to her inability to sleep last night. Psychotropic medications have been adjusted to promote more sound sleep. The patient felt she could agree to this plan and she did not voice any anxiety about going home on psychotropic medication. She continued to be [place], [place] PROGRESS NOTE NAME: HERBERT MAN UNIT #: [id number] ROOM: 312 DOCTOR: ADRIENNE MAYES DO BIRTHDATE: [birth year] cooperative with exam and willing to stay for further inpatient therapy. We will continue to engage the patient in individual and doshi milieu activity, returning to the least restrictive environment when psychiatrically stable. Adrienne Mayes DO HOSEA MERCEDES MD CM:PNZHANG [id number] ADRIENNE MAYES DO 12/02/17 1255 interface
--- NOTE | ~2017-11-25 | PR ---
[place], [place] PROGRESS NOTE NAME: HERBERT MAN [facility] #: [id number] UNIT #: [id number] ROOM: 312 DOCTOR: JENNIFER DELUCA MD BIRTHDATE: [birth year] DOS: 11/28/2017 SUBJECTIVE: The patient seen and spoke with the staff. Per staff, the patient slept well last night, doing well. No behavior problems or issues. Medication compliant. The patient was seen in the day area. She reports feeling "better." Denied any problem with her appetite. She reports poor sleep last night, but did not express any other problems or concerns. She denied any side effect from the medication. MENTAL STATUS EXAMINATION: Pleasant, cooperative, described her mood as "better." Affect, mood congruent. Thought process goal directed. No flight of ideas or loosening of association. She denied auditory or visual hallucination. No delusion or paranoia noted. She denied any suicidal ideation, intent or plan. She also denied any homicidal ideation, intent or plan. PLAN: 1. Continue current medication and care. 2. Continue redirection. 3. Encourage activities in groups. JENNIFER DELUCA MD CM:PNTRANS [phone] JENNIFER DELUCA MD 11/28/172128 interface
[2017-11-25 14:55] VITALS: BP 107/73
[2017-11-25] MEDS ORDERED: PROAIR HFA8.5 GM INH (16:11)
[2017-11-25 19:46] VITALS: BP 140/75
[2017-11-26 07:34] VITALS: BP 116/80
[2017-11-26 20:26] VITALS: BP 110/61
[2017-11-27 07:53] VITALS: BP 115/74
[2017-11-27 18:45] LABS: BILIRUBIN NEGATIVE (NEGATIVE); BLOOD 1+ (NEGATIVE); CLARITY SL CLOUDY (CLEAR); COLOR YELLOW (YELLOW); GLUCOSE NEGATIVE (NEGATIVE); KETONE NEGATIVE (NEGATIVE); LEUKO ESTERASE NEGATIVE (NEGATIVE); NITRITE NEGATIVE (NEGATIVE); SPECIFIC GRAVITY 1.025 (1.005-1.030); UROBILINOGEN 0.2 E.U./dl (0.2-1.0)
[2017-11-27 18:52] LABS: BACTERIA 3+; EPITHELIAL CELLS 51-100
[2017-11-27 20:00] VITALS: BP 123/73
[2017-11-28 08:05] VITALS: BP 134/69
[2017-11-28 20:00] VITALS: BP 118/66
[2017-11-29 07:45] VITALS: BP 122/68
[2017-11-29 14:07] LABS: THYROGLOBULIN ANTIBODY <1.0 IU/mL (0.0-0.9)
[2017-11-29 20:00] VITALS: BP 114/67
[2017-11-30 07:44] VITALS: BP 111/64
[2017-11-30 19:59] VITALS: BP 106/55
[2017-12-01 07:49] VITALS: BP 124/65
[2017-12-01 20:30] VITALS: BP 133/74
[2017-12-02 07:35] VITALS: BP 104/60
[2017-12-02 20:20] VITALS: BP 115/73
[2017-12-03 07:56] VITALS: BP 117/61
[2017-12-03] MEDS ORDERED: TRIAZOLAM0.125 MG PO (09:38)
[2017-12-03] MEDS ORDERED: HYDROXYZINE PAM25 M1 PO (09:38)
[2017-12-03] MEDS ORDERED: PROVIGIL100 MG PO (09:38)
[2017-12-03] MEDS ORDERED: VIIBRYD40 PO (09:38)
[2017-12-03] MEDS ORDERED: CLONAZEPAM1 MG PO (09:38)
== END 2017-12-03 14:40 | disposition home or self-care (01) | DRG 885 ==
LOC: 3N 14:36
PROVIDERS: Family Medicine; Psychiatry & Neurology Psychiatry
DX: F33.9 Major depressive disorder, recurrent, unspecified (principal); J44.9 Chronic obstructive pulmonary disease, unspecified; E55.9 Vitamin D deficiency, unspecified; E78.5 Hyperlipidemia, unspecified; E78.00 Pure hypercholesterolemia, unspecified; F17.210 Nicotine dependence, cigarettes, uncomplicated; F41.1 Generalized anxiety disorder; R21 Rash and other nonspecific skin eruption; Z88.2 Allergy status to sulfonamides; Z71.6 Tobacco abuse counseling; Z79.899 Other long term (current) drug therapy; Z81.8 Family history of other mental and behavioral disorders

== ENCOUNTER 2017-12-24 22:13 | Inpatient (IN) | payer MEDICARE ==
[~2017-12-24] VITALS: Ht 157.5 cm; Wt 68.7 kg
--- NOTE | ~2017-12-24 | CON ---
[place], [place] REPORT OF CONSULTATION NAME: HERBERT MAN UNIT #: [id number] ROOM: 425 DOCTOR: HOSEA MERCEDES MD BIRTHDATE: [birth year] DOS: 12/28/2017 CHIEF COMPLAINT: "Oh, Dr. Mercedes, I still need your help." HISTORY OF PRESENT ILLNESS: This is a 72-year-old white female known to me from my private practice in [place] [facility] as well as several inpatient hospitalizations on the [facility]. The patient is admitted to the medical floor at [facility] due to an exacerbation of her COPD. From a psychiatric standpoint, she reports overriding anxiety that is persistent throughout the day and it interferes with her sleep. She reports that she has been having vivid dreams that oftentimes awaken her at night, much of this she traces to the increased stress that she is under. 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 Most pressing now is that one of her sons is undergoing a second major ear operation and it will be within the next month. She is very worried about what will happen to him and how he will proceed with the surgery and post-surgery. This has caused her to have full blown panic attacks throughout the day and increased her crying spells. She did report that the Viibryd and Provigil and Abilify were working to keep her mood in check. Now as the date of her son's surgery is looming, her anxiety level has exacerbated which in turn is being exacerbated by the COPD. The patient denies any suicidal thoughts, homicidal thoughts or any self-injurious thoughts. MENTAL STATUS: She is alert and oriented. Mood does seem to be somewhat depressed, but reasonably so given the circumstances. She does endorse significant anxiety both consistent as well as increased panic attacks. With the anxiety comes rapid heartbeat, shortness of breath, sense of impending doom and diaphoresis. There is no eliel, hypomania. There are no auditory or visual hallucinations, delusions or paranoia. Memory for the most part is intact. DIAGNOSES: Major depression, recurrent, severe; dysthymic disorder and anxiety disorder, not otherwise specified. PLAN: I have already switched her from the p.r.n. Vistaril, which was ineffective, to p.r.n. Ativan. I will go ahead and discontinue her single dose of Klonopin at night in lieu of Ativan 0.5 mg 3 times daily. She can go ahead and augment with the p.r.n. Ativan that likewise is a 0.[address] can use it when she needs it and if she does not need it, we will not be overly sedating her. Maximino Gregory, psychologist, has already been in to see her to offer his support, would suggest if she needs to be reconsulted by either one of us, notify us at any time. [place], [place] REPORT OF CONSULTATION NAME: MAGDAHERBERT M UNIT #: [id number] ROOM: 425 DOCTOR: HOSEA MERCEDES MD BIRTHDATE: [birth year] HOSEA MERCEDES MD CM:CONSTR:REPORT OF CONSULTATION 12/28/17 1510 interface
--- NOTE | ~2017-12-24 | PR ---
[place], [place] PROGRESS NOTE NAME: HERBERT MAN UNIT #: [id number] ROOM: 425 DOCTOR: DEBORAH DAMIAN MD BIRTHDATE: [birth year] DOS: 12/28/2017 SUBJECTIVE: The patient noted comfortable at this time. Continued to show reduction in respiratory symptom. Bronchoscopy completed yesterday. Reduction in the cough was noted. Pain in the muscles with the coughing. She has not reported symptoms of chest pain. There were symptoms of hemoptysis. OBJECTIVE: VITAL SIGNS: For the patient which were recorded showed the temperature noted normal, respiratory rate 18, heart rate 83, blood pressure 146/85. Pulse oxygen on room air 97% saturation recorded. HEENT: Examination shows head was atraumatic. Eyes nonicterus. NECK: Supple. CARDIOVASCULAR: S1, S2 audible. LUNGS: Noted without any crackles. Decreased breath noted in the lungs bilaterally. There was no wheezing. ABDOMEN: Soft, nontender. EXTREMITIES: Without edema. LABORATORY DATA: Gram stain of the bronchial washings yesterday, moderate epithelial cells, few white blood cells, few gram-positive cocci in pairs and clusters. IMPRESSION: The patient currently noted with resolving acute exacerbation of chronic obstructive pulmonary disease gradually with the coughing for the patient also decreased, but not completely resolved. The coughing has been noted nonproductive at this time. PLAN OF MANAGEMENT: Continuation of the current plan of management of the patient at this time with bronchodilators and oxygen supplementation. Continue the current antibiotics. Decrease the Solu-Medrol dose to 40 mg daily dose. The preparation for discharge could be started for the patient upon stability of the patient from Pulmonary standpoint. Tapering dose of prednisone and oral antibiotic would be recommended post-discharge. [place], [place] PROGRESS NOTE NAME: HERBERT MAN UNIT #: [id number] ROOM: 425 DOCTOR: DEBORAH DAMIAN MD BIRTHDATE: [birth year] DEBORAH FARNSWORTH MD CM:PNTRANS [id number] DEBORAH WALKER MD 12/28/17 1122 interface
--- NOTE | ~2017-12-24 | PR ---
[place], [place] PROGRESS NOTE NAME: HERBERT MAN [facility] #: [id number] UNIT #: [id number] ROOM: 425 DOCTOR: JAVAD WALKER MD,DEBORAH BIRTHDATE: [birth year] DOS: 12/27/2017 PULMONARY PROGRESS NOTE SUBJECTIVE: The patient was seen and examined on 12/27/2017. She has been noted excessive pain in abdominal muscle with a cough. Cough is noted severe and nonproductive. Denies symptoms of chest pain. There was no hemoptysis. Shortness of breath and wheezing was also noted intermittently. Denies symptoms of nausea, vomiting, diarrhea. Denies symptoms of headache or diplopia. Denies ear pain or edema of the lower extremity. Remaining systems were reviewed, they were noted all negative. The patient decided to undergo bronchoscopy because of the worsening cough still remains nonproductive causing significant musculoskeletal pain in the abdomen. OBJECTIVE: VITAL SIGNS: For the patient which has been recorded showed normal temperature, respiratory rate of 13-16, heart rate 63, blood pressure 129/66, pulse ox saturation on room air 95% saturation. HEENT: No acute change. NECK: Supple. CARDIOVASCULAR: S1, S2 audible. LUNGS: Noted without any crackles. Decreased breath sounds with expiratory wheezing. ABDOMEN: Soft with tenderness in the muscle area on palpation. EXTREMITIES: Without any acute edema. MUSCULOSKELETAL: Without any acute deformity. CENTRAL NERVOUS SYSTEM: Cranial nerves 2-12 intact. No focal deficit. LABORATORY DATA: BMP today, glucose 124, normal BUN and creatinine, electrolytes normal. CBC of 12/27/2017, WBC count 8.7, hemoglobin 11.6, platelet count was normal. The chest x-ray PA lateral view done yesterday does not show any acute pulmonary infiltration at this time. IMPRESSION: 1. Ongoing severe cough related to acute exacerbation of chronic obstructive pulmonary disease remained nonproductive and nonresolving. 2. Musculoskeletal pain in the abdomen secondary to excessive contraction of the muscle with a nonproductive cough, which was noted for sputum expectoration. 3. Past history of nicotine use. PLAN OF MANAGEMENT: The patient was ordered the heating pad. The n.p.o. past midnight and bronchoscopy was made for the patient last night for procedure to be done today to help improve the cough and mucus clearance. Continue current dose of bronchodilators, oxygen supplementation. Local pain management with pain medications and others. Usual care, other supportive therapy, plan of management and treatment. No change in steroids need to be made. [place], [place] PROGRESS NOTE NAME: HERBERT MAN Mona UNIT #: [id number] ROOM: [facility] DOCTOR: JAVAD WALKER MD,DEBORAH BIRTHDATE: [birth year] DEBORAH FARNSWORTH MD CM:PNTRANS [id number] DEBORAH WALKER MD 12/27/17 2242 interface
--- NOTE | ~2017-12-24 | PROC NOTE ---
[place], [place] PROCEDURE NOTE NAME: HERBERT MAN [facility] #: [id number] UNIT #: [id number] ROOM: 425 DOCTOR: JAVAD WALKER MD,DEBORAH BIRTHDATE: [birth year] DOS: 12/27/2017 PROCEDURE: Bronchoscopy. PREOPERATIVE DIAGNOSIS: Persistent cough and wheezing with maximal medical therapy. POSTOPERATIVE DIAGNOSES: Removal of multiple plugs of the mucus from endobronchial tree bilaterally. There were no endobronchial obstructive lesions. COMPLICATIONS: None. BLOOD LOSS: None. PROCEDURE DESCRIPTION: Informed consent obtained for the patient. The patient brought to the OR and placed in supine position. Conscious sedation administered by the Anesthesia Department. After achieving proper sedation, airway introduced into the mouth. The bronchoscope advanced to the airway into laryngeal area. Epiglottis and vocal cords were seen. Vocal cords moving symmetrically with movements. Bronchoscope rather entered into the tracheal lumen shows moderate amount of thick mucus secretion suctioned out courtney level. Courtney noted sharp. Systematic review of the right upper, right middle, right lower, left upper, lingula, and lower lobe bronchi were all examined. Moderate amount of thick mucus plugs were noted for this patient and bronchial tree subsegment causing partial obstruction of the bronchial openings. The mucous plug was cleared up with normal saline wash, sent for cultures. Procedure was tolerated by the patient without difficulty. Postoperative findings will be discussed with the patient once the patient recovered the effects of acute sedation. DEBORAH FARNSWORTH MD CM:PROCNOTE:PROCEDURE NOTE [id number] [id number] DEBORAH WALKER MD
--- NOTE | ~2017-12-24 | CON ---
[place], [place] REPORT OF CONSULTATION NAME: HERBERT MAN [facility] #: [id number] UNIT #: [id number] ROOM: 425 DOCTOR: JAVAD WALKER MD,DEBORAH BIRTHDATE: [birth year] DOS: 12/26/2017 PULMONARY CONSULTATION, EVALUATION, MANAGEMENT CONSULTATION REQUESTING PHYSICIAN: Jocy Webb D.O. REASON FOR CONSULTATION: Assess the patient for shortness of breath. HISTORY OF PRESENT ILLNESS: The patient is a 72-year-old white female who has been known with a past history of COPD and has been assessed and treated in 11/2017. She was treated with bronchodilators, oxygen supplementation, and antibiotics. She required therapeutic bronchoscopy at that time and then discharged. The patient was treated in the [facility] from 11/26/2017 until 12/03/2017 and discharged home with major depression and general anxiety disorder. The patient presented to the hospital. She has been noted with symptoms of increased fatigue with increasing shortness of breath, which has been occurring recently. She has been noted with persistent nonproductive cough for the past couple of weeks as well. She was also noted with soreness in the throat with cough. Denies symptoms of chest pain or hemoptysis. She was also noted with symptoms of wheezing as well. Currently, the patient has been admitted to the hospital, noted with acute exacerbation of COPD. REVIEW OF SYSTEMS: CONSTITUTIONAL: Fatigue and tiredness noted, without any symptoms of fever or chills. EYES: Denies any burning, redness, or tenderness. EARS, NOSE, AND THROAT: Denies sore throat, hoarseness, otalgia, postnasal drainage, or epistaxis. CARDIOVASCULAR: Denies anginal pain, edema or pain in the lower extremities. GASTROINTESTINAL: Denies dysphagia, nausea, vomiting, diarrhea, abdominal pain, hematemesis, melena, or hematochezia. SKIN: No abnormal lesions or rashes. CENTRAL NERVOUS SYSTEM: Noted without any focal neurologic deficit, tingling sensation, or seizures. Remaining systems were reviewed, they were noted all negative. PAST MEDICAL HISTORY: Noted with history of: 1. COPD. 2. Bronchial asthma, unknown severity. 3. Past history of nicotine abuse. 4. History of major depression, acute. 5. Anxiety disorder. 6. Depression. PAST SURGICAL HISTORY: 1. Tonsillectomy. 2. Therapeutic bronchoscopy that was done on 10/18/2017. SOCIAL HISTORY: The patient is , has 2 children, lives at home. [place], [place] REPORT OF CONSULTATION NAME: HERBERT MAN UNIT #: [id number] ROOM: [facility] DOCTOR: JAVAD WALKER MD,DEBORAH BIRTHDATE: [birth year] Smoking started as a teenager, a pack of cigarettes per day. Denies using any tobacco products since her previous hospitalization with use of nicotine replacement patches. Denies any alcohol use or illicit drugs. FAMILY HISTORY: Both parents , unknown medical illnesses. MEDICATIONS: The current administered medications on this admission were noted as use of Abilify, Solu-Medrol, Viibryd at bedtime, Singulair, Lipitor, Mucinex 1200 mg b.i.d., heparin for DVT prophylaxis, Levaquin, Klonopin, modafinil, IV Zosyn, vancomycin, and other p.r.n. medications. DRUG ALLERGY HISTORY: NOTED ALLERGY TO SULFA DRUGS. PHYSICAL EXAMINATION: GENERAL: The patient is a 72-year-old white female, currently noted to be awake and alert, without any acute distress. Height is noted 5 feet 2 inches, weight of 151 pounds, BMI 27. VITAL SIGNS: Normal temperature, respirations 18-20, heart rate of 88-79, blood pressure 127/72-117/40, pulse oxygen saturation on room air 98% saturation at rest. HEENT: Head was atraumatic. Eyes nonicterus. NECK: Supple. CARDIOVASCULAR: S1, S2 audible. LUNGS: Noted without crackles. Moderate expiratory wheezing was present bilaterally and diffusely. ABDOMEN: Flat, soft, nontender. Bowel sounds present. EXTREMITIES: Noted without any acute edema. MUSCULOSKELETAL: Noted without any acute deformities. LABORATORY DATA: CMP that was done on 12/24/2017 was noted with BUN 16, creatinine 1.10, sodium was normal, potassium was normal. PT/PTT on 12/24/2017 was normal. Lactic acid 2.6 was noted on admission, 12/24/2017. CBC noted normal CBC, eosinophils 6.8%. CBC of 12/26/2017 noted normal WBC count, hemoglobin 11.9, platelet count is normal. BMP of noted glucose 145, normal BUN and creatinine. Blood culture, no bacterial growth from 12/24/2017. IMAGING DATA: Chest x-ray one view on 12/24/2017 was noted without any acute major pulmonary infiltration. Small infiltration in the lower lobes of lungs cannot be completely excluded. IMPRESSION: 1. The patient who has been currently admitted to the hospital noted with acute recurrent exacerbation of chronic obstructive pulmonary disease and bronchial asthma. Possibility of eosinophilic phenotype, type 2 asthma will be considered. 2. Past history of nicotine abuse, stating nontobacco user at this time. 3. Basilar area of atelectasis and infiltration, questionable pneumonia as well. [place], [place] REPORT OF CONSULTATION NAME: HERBERT MAN UNIT #: [id number] ROOM: 425 DOCTOR: DEBORAH DAMIAN MD BIRTHDATE: [birth year] PLAN OF MANAGEMENT: Continuation of bronchodilators and oxygen supplementation. The patient is receiving multiple broad-spectrum intravenous antibiotics. The spectrum of the antibiotics should be changed to short-spectrum antibiotics. She will be started on doxycycline 100 mg p.o. b.i.d. and Rocephin 1 gram IV daily. She was advised the current treatment of current suspected pneumonia. Continuation of other therapy plan of management as well. Usual treatment, all other supportive plan of treatment and care. She was suggested therapeutic bronchoscopy as well, but at this time the patient does not wish to proceed with that. Sputum for Gram stain and cultures was ordered as well. Repeat another chest x-ray as well, PA and lateral view to clearly assess the patient's right lower lobe process and any progression. Thank you for allowing me to participate in the care of this patient. DEBORAH FARNSWORTH MD CM:CONSTR:REPORT OF CONSULTATION 1414 01/05/18 0816 interface
--- NOTE | ~2017-12-24 | CON ---
[place], [place] REPORT OF CONSULTATION [id number] #: [id number] ROOM: 425 DOCTOR: ELISABETH GIPSON ED.D (RADHA) BIRTHDATE: [birth year] DOS: 12/27/2017 HISTORY OF PRESENT ILLNESS: The patient is a 72-year-old female referred by the hospitalist for an evaluation of her depression and anxiety. At the present time, she is on the fourth floor at [facility]. The patient is and she has 2 sons. 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 She is living in [place] but they are planning on building, in addition, on her son's home for the patient to move once that is completed. She is very positive about this option. She is depressed; however, due to the fact she had to retire. She is following with the [facility] here at [facility] and her medical history is pertinent for major depressive disorder, COPD, hypercholesterolemia and vitamin D deficiency. Her medications include ProAir, Stiolto, atorvastatin, vitamin D3, hydroxyzine, Provigil, Viibryd, Klonopin and Abilify. This patient denies any substance abuse issues, although she just recently quit smoking. Her short and her long-term memory appear to be intact. She had no difficulty indicating where she was or what year it was, so there are no memory deficits with this patient, whatsoever. She states she has been following with Kristie Mcmillan at [facility] where she sees the patient as a nurse practitioner for her psych meds. She has seen me in the past also. She is planning on returning to my office for outpatient psychotherapy once she is discharged, although she may go to rehabilitation temporarily once she is discharged from the hospital. In my opinion, this patient has chronic depression and will need to continue on her medications and need outpatient psychotherapy. She initially starts therapy and then comes for several sessions then states she feels better and then does not return. I explained to her that she needs to probably continue therapy on a regular basis for quite some time and she did agree with that. DIAGNOSES: 1. Major depressive disorder-recurrent. 2. Generalized anxiety disorder. RECOMMENDATIONS: The patient should continue her psychotropic medications. The patient should follow up outpatient with psychotherapy once she is discharged. Thank you very much for this consult. [place], [place] REPORT OF CONSULTATION [facility]: [facility] MAN [id number] UNIT #: [id number] ROOM: [facility] DOCTOR: ELISABETH GIPSON ED.D) BIRTHDATE: [birth year] ELISABETH GIPSON ED.D CM:CONSTR:REPORT OF CONSULTATION 1737 01/04/18 0734 interface
--- NOTE | ~2017-12-24 | PROC NOTE ---
[place], [place] PROCEDURE NOTE NAME: HERBERT MAN [facility] #: [id number] UNIT #: [id number] ROOM: 425 DOCTOR: Em Donaldson BIRTHDATE: [birth year] DOS: MODIFIED BARIUM SWALLOW STUDY PHYSICIAN: Jocy Webb DO AGE: 72 years. BACKGROUND MEDICAL HISTORY: The patient was admitted with shortness of breath on 12/25/2017. She also has a diagnosis of depression, anxiety and was admitted with severe sepsis. The patient has a prior medical history of anxiety, asthma, COPD and renal failure. Chest x-ray upon admission showed bibasilar airspace opacities, which may represent aspiration or developing pneumonia, which was the reason for the referral at this time. The patient stated that she has no difficulty with swallowing at this time and that this exam was being done due to the exacerbation of COPD. She stated that she lives at home and was able to answer all questions regarding her history and current status. She stated that she did have a modified barium swallow study approximately 3 years ago and that the results were normal; however, that report was not available at this time for review. The patient's respiratory status is within normal limits at this time aside from mild shortness of breath. The patient did not indicate any weight loss and current intake status is by mouth. Her current diet is regular with thin liquids. METHODS OF MATERIALS: The patient was presented with thin liquids by cup and by straw, pureed consistency, a dry soft solid, a soft solid and a regular consistency solid, all covered with liquid very sparse reviewing under fluoroscopy. The patient was seated in a wheelchair and viewed in the lateral plane. ORAL PHASE: This phase of swallow was essentially unremarkable. The patient demonstrated adequate labial seal and mastication for all materials. Oral transit time was within functional limits for all materials at this time. Bolus formation was normal. Tongue to palate contact and tongue to posterior pharyngeal wall contact was adequate and velar function was normal. No tongue pumping was noted during the assessment and no oral residue remained in the oral cavity. PHARYNGEAL PHASE: This phase of swallow was essentially unremarkable as well. The patient demonstrated no swallow trigger delay and premature loss with solids was noted and mild, however, the patient was given a spoonful with barium and the solid material, the barium was prematurely lost into the vallecula, however, no penetration or aspiration occurred. Transient penetration occurred with thin liquids by straw, however, no aspiration was noted and the penetration was cleared. The patient was not aware of this and did not show any signs or symptoms. ESOPHAGEAL PHASE: This phase of swallow was not formally assessed at this time; however, no regurgitation of materials was noted during the assessment. [place], [place] PROCEDURE NOTE NAME: HERBERT MAN UNIT #: [id number] ROOM: 425 DOCTOR: Em Donaldson BIRTHDATE: [birth year] IMPRESSION AND RECOMMENDATIONS: The patient presents with essentially normal swallow function at this time, mild penetration of thin liquid by straw was noted and was reviewed with the patient along with strategies and exercises were given to the patient for review in independent use at home and the patient verbalized understanding and agreement. She stated that she drinks most liquids by straw at this time as that enables her to consume more water during the day when she drinks with a straw and she is not at risk for aspiration at this time, so that is not recommended to change. No treatment is recommended at this time and no diet changes will be implemented. Results and recommendations were reviewed with the patient who verbalized understanding and agreement. If you have any questions regarding this assessment, please contact the speech pathology department at [phone]. Thank you for this referral. Em Donaldson CM:PROCNOTE:PROCEDURE NOTE 1254 1616 Em Donaldson
--- NOTE | ~2017-12-24 | CON ---
[place], [place] REPORT OF CONSULTATION [id number] UN[facility] #: [id number] ROOM: 425 DOCTOR: JENNIFER DELUCA MD BIRTHDATE: [birth year] DOS: 12/26/2017 PSYCHIATRIC CONSULTATION REPORT REASON FOR CONSULT: Medication management for depression and anxiety. HISTORY OF PRESENT ILLNESS: The patient seen and chart reviewed. I also spoke with the nursing staff. Reportedly, the patient has been feeling increasingly depressed and anxious, but not suicidal per nursing staff. The patient is a 72-year-old female with long history of depression, got admitted to the medical floor due to worsening shortness of breath. She got recently discharged from the Behavioral Health Unit on 12/03/2017 where she was treated for depression and generalized anxiety disorder. The patient was pleasant and cooperative during the interview. She was in the bed in a hospital gown. She was actually taking a nap. She woke up when I called her name. She said that lately she has been feeling increasingly tired because of all the medication and also because of her current illness. She reports being depressed and down, but denied any hopelessness or helplessness. Denied any other neurovegetative signs or symptoms of depression. She reported good sleep and appetite. The main stress for her current depression is that she is retired on December 10 and then she ended up coming to the hospital also. 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 She was not able to identify any other specific stress for her current depression. She denied any symptoms of psychosis, eliel, or hypomania. PAST MEDICAL HISTORY: Significant for asthma, COPD, hypercholesterolemia, vitamin D deficiency. PAST PSYCHIATRIC HISTORY: The patient reported two prior psychiatric hospitalizations. Denied prior suicide attempt. No suicide in the family. Denied having any gun at home. SUBSTANCE ABUSE HISTORY: The patient denied any drugs or alcohol. SOCIAL HISTORY: The patient mentions that she just got retired. She has a son who lives in [facility]. She lives by herself. MENTAL STATUS EXAMINATION: The patient was pleasant and cooperative. She was alert and oriented to day, date, month and year. She described her mood as "okay." Affect, mood congruent. Thought process goal directed. No flight of ideas, loosening of association. She denied auditory or visual hallucination. No delusion or paranoia noted. She vehemently denied any suicidal ideation, intent or plan. She also denied any homicidal ideation, intent or plan. Insight and judgment was fair. ASSESSMENT: 1. 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 2. Generalized anxiety disorder. [place], [place] REPORT OF CONSULTATION NAME: HERBERT MAN UNIT #: [id number] ROOM: 425 DOCTOR: JENNIFER DELUCA MD BIRTHDATE: [birth year] PLAN: 1. Continue her Viibryd 40 mg a day. 2. Continue clonazepam at current dose. 3. I will start her on Abilify 2 mg at night to augment antidepressant effect. The patient was tried on a different antidepressant in the past. I am hoping that this will help to augment with Viibryd. 4. The patient needs a psychiatric followup appointment prior to discharge. 5. The treatment team in this unit needs to talk with her son before the discharge to make sure that the son does not express any safety concern for the patient or anyone else and he was okay with discharge plan. We will sign off on this patient. JENNIFER DELUCA MD CM:CONSTR:REPORT OF CONSULTATION 1216 12/26/17 1526 interface
[~2017-12-24 22:13] MED LIST changes: +CLONAZEPAM1 MG PO; +PROVIGIL100 MG PO; +TRIAZOLAM0.125 MG PO
[2017-12-24 22:15] VITALS: BP 133/69
[2017-12-24 22:57] VITALS: BP 127/76
[2017-12-24 23:01] LABS: BASO # 0.1 10*3/uL (0.0-0.1); BASO % 0.7 % (0.0-1.0); EOS # 0.7 10*3/uL (0.0-0.4); EOS % 6.8 % (1.0-4.0); HEMATOCRIT 44.4 % (37.0-47.0); HEMOGLOBIN 14.6 g/dl (12.0-16.0); LYMPH # 2.8 10*3/uL (1.3-4.4); LYMPH % 27.4 % (27.0-41.0); MEAN CELL VOLUME 94.1 fl (81.0-99.0); MEAN CORPUSCULAR HGB 30.9 pg (27.0-31.0); MEAN CORPUSCULAR HGB CONC 32.9 g/dl (33.0-37.0); MEAN PLATELET VOLUME 9.6 fl (9.6-12.3); MONO # 0.9 10*3/uL (0.1-1.0); MONO % 8.7 % (3.0-9.0); NEUT # 5.7 10*3/uL (2.3-7.9); PLATELET COUNT AUTOMATED 291 10*3/uL (130-400); RED BLOOD COUNT 4.72 10*6/uL (4.10-5.10); RED CELL DISTRI WIDTH 12.7 % (0-14.5); WHITE BLOOD COUNT 10.1 10*3/uL (4.8-10.8)
[2017-12-24 23:12] LABS: ACT PARTIAL THROMBO TIME 21.8 SECONDS (20.8-31.5); INTERNATIONAL NORM RATIO 0.9 (2.0-3.5)
[2017-12-24 23:19] LABS: ALBUMIN 3.5 gm/dl (3.1-4.5); ALKALINE PHOSPHATASE 76 U/L (45-117); BUN 16 mg/dl (7-24); CHLORIDE 109 mmol/L (98-107); LIPASE 92 U/L (73-393); POTASSIUM 4.1 mmol/L (3.5-5.1); SGOT/AST 18 IU/L (3-35); SGPT/ALT 25 U/L (12-78); SODIUM 140 mmol/L (136-145); TOTAL PROTEIN 6.7 gm/dL (6.4-8.2)
[2017-12-24 23:22] LABS: TROPONIN I < 0.015 ng/ml (<0.045)
[2017-12-25 00:12] VITALS: BP 125/69
[2017-12-25 00:30] VITALS: BP 115/75
[2017-12-25 05:47] LABS: CREATININE 1.18 mg/dL (0.55-1.02); TOTAL PROTEIN 5.9 gm/dL (6.4-8.2)
[2017-12-25 05:55] LABS: POTASSIUM 4.3 mmol/L (3.5-5.1)
[2017-12-25 06:10] LABS: HEMATOCRIT 40.6 % (37.0-47.0); MEAN CORPUSCULAR HGB 30.7 pg (27.0-31.0); MEAN PLATELET VOLUME 10.1 fl (9.6-12.3); PLATELET COUNT AUTOMATED 256 10*3/uL (130-400); RED BLOOD COUNT 4.23 10*6/uL (4.10-5.10); RED CELL DISTRI WIDTH 12.8 % (0-14.5); WHITE BLOOD COUNT 6.5 10*3/uL (4.8-10.8)
[2017-12-25 06:28] LABS: BILIRUBIN NEGATIVE (NEGATIVE); BLOOD TRACE-INTACT (NEGATIVE); CLARITY CLOUDY (CLEAR); COLOR YELLOW (YELLOW); GLUCOSE TRACE (NEGATIVE); KETONE NEGATIVE (NEGATIVE); LEUKO ESTERASE NEGATIVE (NEGATIVE); NITRITE NEGATIVE (NEGATIVE); PH 5.5 (5.0-9.0); SPECIFIC GRAVITY >= 1.030 (1.005-1.030); UROBILINOGEN 0.2 E.U./dl (0.2-1.0)
[2017-12-25 07:00] LABS: BACTERIA 2+; EPITHELIAL CELLS 15-20
[2017-12-25 07:46] LABS: PLATELET SUFFICIENCY NORMAL (NORMAL); TOTAL CELLS COUNTED 100 #CELLS
[2017-12-25 08:00] VITALS: BP 116/48
[2017-12-25 12:00] VITALS: BP 134/58
[2017-12-25 16:00] VITALS: BP 123/65
[2017-12-25 20:00] VITALS: BP 125/66
[2017-12-26] VITALS: BP 118/57
[2017-12-26 08:00] VITALS: BP 117/40
[2017-12-26 09:43] LABS: BASO % 0.1 % (0.0-1.0); HEMATOCRIT 36.9 % (37.0-47.0); HEMOGLOBIN 11.9 g/dl (12.0-16.0); LYMPH # 0.7 10*3/uL (1.3-4.4); LYMPH % 6.8 % (27.0-41.0); MEAN CELL VOLUME 95.1 fl (81.0-99.0); MEAN CORPUSCULAR HGB 30.7 pg (27.0-31.0); MEAN CORPUSCULAR HGB CONC 32.2 g/dl (33.0-37.0); MEAN PLATELET VOLUME 9.7 fl (9.6-12.3); MONO # 0.5 10*3/uL (0.1-1.0); MONO % 5.4 % (3.0-9.0); NEUT # 8.3 10*3/uL (2.3-7.9); NEUT % 87.2 % (47.0-73.0); PLATELET COUNT AUTOMATED 228 10*3/uL (130-400); RED BLOOD COUNT 3.88 10*6/uL (4.10-5.10); RED CELL DISTRI WIDTH 12.8 % (0-14.5); WHITE BLOOD COUNT 9.5 10*3/uL (4.8-10.8)
[2017-12-26 10:05] LABS: BUN 14 mg/dl (7-24); CHLORIDE 111 mmol/L (98-107); CREATININE 0.92 mg/dL (0.55-1.02); POTASSIUM 3.7 mmol/L (3.5-5.1); SODIUM 143 mmol/L (136-145)
[2017-12-26 12:00] VITALS: BP 127/72
[2017-12-26 16:00] VITALS: BP 124/77
[2017-12-26 20:00] VITALS: BP 130/70
[2017-12-27] VITALS (7 sets, daily range): BP systolic 122–138; BP diastolic 66–73
[2017-12-27 07:35] LABS: BASO % 0.1 % (0.0-1.0); HEMATOCRIT 36.2 % (37.0-47.0); HEMOGLOBIN 11.6 g/dl (12.0-16.0); LYMPH # 0.9 10*3/uL (1.3-4.4); LYMPH % 9.8 % (27.0-41.0); MEAN CELL VOLUME 95.5 fl (81.0-99.0); MEAN CORPUSCULAR HGB 30.6 pg (27.0-31.0); MEAN PLATELET VOLUME 10.3 fl (9.6-12.3); MONO # 0.4 10*3/uL (0.1-1.0); MONO % 4.5 % (3.0-9.0); NEUT # 7.4 10*3/uL (2.3-7.9); NEUT % 84.9 % (47.0-73.0); PLATELET COUNT AUTOMATED 218 10*3/uL (130-400); RED BLOOD COUNT 3.79 10*6/uL (4.10-5.10); RED CELL DISTRI WIDTH 12.9 % (0-14.5); WHITE BLOOD COUNT 8.7 10*3/uL (4.8-10.8)
[2017-12-27 07:47] LABS: BUN 18 mg/dl (7-24); CHLORIDE 110 mmol/L (98-107); CREATININE 0.82 mg/dL (0.55-1.02); POTASSIUM 3.7 mmol/L (3.5-5.1); SODIUM 142 mmol/L (136-145)
[2017-12-28] VITALS: BP 111/57
[2017-12-28 08:00] VITALS: BP 146/85
[2017-12-28 12:00] VITALS: BP 140/72
[2017-12-28 13:08] LABS: ACID FAST SPEC PROCESSING Concentration (.)
[2017-12-28] MEDS ORDERED: ARIPIPRAZOLE2 MG PO (14:23)
[2017-12-28] MEDS ORDERED: PREDNISONE10 MG PO (14:23)
[2017-12-28] MEDS ORDERED: DOXYCYCLINE MO100 M1 PO (14:23)
[2017-12-28] MEDS ORDERED: LORAZEPAM0.5 MG PO ×2 (14:23)
[2017-12-28 16:00] VITALS: BP 146/68
== END 2017-12-28 16:08 | disposition other institution (70) | DRG 871 ==
LOC: ED 22:13 → 4E 12-25 00:10 → EDHOLD 12-25 00:10 → 4E 12-25 00:20
PROVIDERS: Internal Medicine; Internal Medicine Critical Care Medicine; Physician Assistant; Student in an Organized Health Care Education/Training Program
PROC: 0BC88ZZ Extirpation of Matter from Left Upper Lobe Bronchus, Via Natural or Artificial Opening Endoscopic (ICD-10-PCS; principal; 2017-12-27)
PROC: 0BC38ZZ Extirpation of Matter from Right Main Bronchus, Via Natural or Artificial Opening Endoscopic (ICD-10-PCS; principal; 2017-12-27)
PROC: 0BCB8ZZ Extirpation of Matter from Left Lower Lobe Bronchus, Via Natural or Artificial Opening Endoscopic (ICD-10-PCS; principal; 2017-12-27)
PROC: 0BC18ZZ Extirpation of Matter from Trachea, Via Natural or Artificial Opening Endoscopic (ICD-10-PCS; principal; 2017-12-27)
PROC: 0BC58ZZ Extirpation of Matter from Right Middle Lobe Bronchus, Via Natural or Artificial Opening Endoscopic (ICD-10-PCS; principal; 2017-12-27)
PROC: 0BC68ZZ Extirpation of Matter from Right Lower Lobe Bronchus, Via Natural or Artificial Opening Endoscopic (ICD-10-PCS; principal; 2017-12-27)
PROC: 0BC48ZZ Extirpation of Matter from Right Upper Lobe Bronchus, Via Natural or Artificial Opening Endoscopic (ICD-10-PCS; principal; 2017-12-27)
PROC: 0BC78ZZ Extirpation of Matter from Left Main Bronchus, Via Natural or Artificial Opening Endoscopic (ICD-10-PCS; principal; 2017-12-27)
PROC: 0BC98ZZ Extirpation of Matter from Lingula Bronchus, Via Natural or Artificial Opening Endoscopic (ICD-10-PCS; principal; 2017-12-27)
PROC: BD1BYZZ Fluoroscopy of Mouth/Oropharynx using Other Contrast (ICD-10-PCS; 2017-12-28)
DX: A41.9 Sepsis, unspecified organism (principal); J18.9 Pneumonia, unspecified organism; N17.0 Acute kidney failure with tubular necrosis; F33.2 Major depressive disorder, recurrent severe without psychotic features; T17.590A Other foreign object in bronchus causing asphyxiation, initial encounter; J44.1 Chronic obstructive pulmonary disease with (acute) exacerbation; J44.0 Chronic obstructive pulmonary disease with (acute) lower respiratory infection; F41.1 Generalized anxiety disorder; E87.8 Other disorders of electrolyte and fluid balance, not elsewhere classified; E55.9 Vitamin D deficiency, unspecified; E78.00 Pure hypercholesterolemia, unspecified; F34.1 Dysthymic disorder; R07.9 Chest pain, unspecified; X58.XXXA Exposure to other specified factors, initial encounter; F17.210 Nicotine dependence, cigarettes, uncomplicated; R65.20 Severe sepsis without septic shock; Z88.2 Allergy status to sulfonamides; Z80.9 Family history of malignant neoplasm, unspecified; Z83.6 Family history of other diseases of the respiratory system; Z84.89 Family history of other specified conditions; Y93.89 Activity, other specified; Y92.89 Other specified places as the place of occurrence of the external cause; Y99.8 Other external cause status

== ENCOUNTER 2018-04-02 11:09 | Emergency (ER) | payer MEDICARE ==
[~2018-04-02] VITALS: Ht 157.4 cm; Wt 72.6 kg
[~2018-04-02 11:09] MED LIST changes: +ARIPIPRAZOLE2 MG PO; +DOXYCYCLINE MO100 M1 PO
[2018-04-02] MEDS ORDERED: DULOXETINE HCL60 MG PO (11:16)
[2018-04-02] MEDS ORDERED: DOXEPIN HCL25 MG PO (11:16)
[2018-04-02] MEDS ORDERED: LORAZEPAM0.5 MG PO (11:16)
[2018-04-02] MEDS ORDERED: POTASSIUM CHLO20 ME4 PO (11:17)
[2018-04-02 12:15] LABS: BASO # 0.1 10*3/uL (0.0-0.1); BASO % 0.8 % (0.0-1.0); EOS # 0.6 10*3/uL (0.0-0.4); EOS % 7.5 % (1.0-4.0); HEMATOCRIT 46.4 % (37.0-47.0); LYMPH # 0.9 10*3/uL (1.3-4.4); LYMPH % 11.9 % (27.0-41.0); MEAN CELL VOLUME 96.5 fl (81.0-99.0); MEAN CORPUSCULAR HGB 31.2 pg (27.0-31.0); MEAN CORPUSCULAR HGB CONC 32.3 g/dl (33.0-37.0); MEAN PLATELET VOLUME 9.5 fl (9.6-12.3); MONO # 0.3 10*3/uL (0.1-1.0); MONO % 3.5 % (3.0-9.0); NEUT # 5.5 10*3/uL (2.3-7.9); NEUT % 75.6 % (47.0-73.0); PLATELET COUNT AUTOMATED 280 10*3/uL (130-400); RED BLOOD COUNT 4.81 10*6/uL (4.10-5.10); RED CELL DISTRI WIDTH 12.9 % (0-14.5); WHITE BLOOD COUNT 7.3 10*3/uL (4.8-10.8)
[2018-04-02 12:30] LABS: ALBUMIN 3.4 gm/dl (3.1-4.5); ALKALINE PHOSPHATASE 73 U/L (45-117); BUN 15 mg/dl (7-24); CHLORIDE 105 mmol/L (98-107); CREATININE 1.07 mg/dL (0.55-1.02); POTASSIUM 4.7 mmol/L (3.5-5.1); SGOT/AST 15 IU/L (3-35); SGPT/ALT 27 U/L (12-78); SODIUM 139 mmol/L (136-145); TOTAL PROTEIN 6.7 gm/dL (6.4-8.2)
[2018-04-02] MEDS ORDERED: PREDNISONE50 MG PO (12:47)
[2018-04-02] MEDS ORDERED: ZITHROMAX250 MG PO (12:47)
[2018-04-02 13:42] VITALS: BP 127/88
== END 2018-04-02 13:35 | disposition home or self-care (01) ==
LOC: ED 11:09
PROVIDERS: Nurse Practitioner Family
DX: J44.1 Chronic obstructive pulmonary disease with (acute) exacerbation (principal); F17.200 Nicotine dependence, unspecified, uncomplicated; Z90.89 Acquired absence of other organs; Z79.899 Other long term (current) drug therapy; Z88.2 Allergy status to sulfonamides

== ENCOUNTER 2018-04-13 12:40 | Inpatient (IN) | payer MEDICARE ==
[~2018-04-13] VITALS: Ht 157.5 cm; Wt 75.3 kg
--- NOTE | ~2018-04-13 | PR ---
[place], [place] PROGRESS NOTE NAME: HERBERT MAN [facility] #: [id number] UNIT #: [id number] ROOM: 505 DOCTOR: JAVAD WALKER MD,DEBORAH BIRTHDATE: [birth year] DOS: 04/15/2018 PULMONARY PROGRESS NOTE SUBJECTIVE: The patient has reported reduction of the symptoms of shortness of breath, coughing, wheezing last 24 hours. Denies symptoms of chest pain, fever or chills. Denies symptoms of nausea or vomiting. She has been continued on corticosteroids, bronchodilator, medical management. OBJECTIVE: VITAL SIGNS: Normal temperature, respiratory rate 20, heart rate 89, blood pressure 140/72. HEENT: No new change. NECK: Supple. CARDIOVASCULAR: S1, S2 audible. LUNGS: Noted with moderate decreased breath sounds, mild to moderate expiratory wheezing, decreased from previous examination. ABDOMEN: Soft, nontender. Bowel sounds present. EXTREMITIES: Without any acute edema. LABORATORY DATA: The patient had influenza A and B, nasal washing antigen noted negative yesterday. IMPRESSION: Resolving acute exacerbation of chronic obstructive pulmonary disease, current medical management, responding to treatment progressively. PLAN OF THERAPY: Decrease Solu-Medrol dose to 40 mg b.i.d. for the patient from today. Monitor respiratory status for the next 24 hours. Consider possible discharge home the patient in the morning depends on further improvement in the respiratory symptoms. DEBORAH FARNSWORTH MD CM:PNTRANS [id number] DEBORAH WALKER MD 04/15/18 1854 interface
--- NOTE | ~2018-04-13 | PR ---
[place], [place] PROGRESS NOTE NAME: HERBERT MAN [facility] #: [id number] UNIT #: [id number] ROOM: 505 DOCTOR: JAVAD WALKER MD,DEBORAH BIRTHDATE: [birth year] DOS: 04/18/2018 SUBJECTIVE: The patient noted comfortable at this time, reduction in respiratory symptoms noted from yesterday. Reduction of cough, wheezing and shortness breath of the resolution noted incomplete, but improving since admission. OBJECTIVE: VITAL SIGNS: For the patient which has been recorded shows temperature noted normal, respiratory rate of 20, heart rate 110, blood pressure 118/66. The pulse oxygen saturation on 2 liters nasal cannula 95% saturation. HEENT: Head was atraumatic. Eyes nonicterus. NECK: Supple. CARDIOVASCULAR: S1, S2 audible. LUNGS: Noted with mild expiratory wheezing with decreased breath sounds. ABDOMEN: Soft, nontender. EXTREMITIES: Without acute edema. LABORATORY DATA: Culture of the sputum from yesterday noted normal stacy. Final culture results were pending. IMPRESSION: The patient has slow resolution of acute exacerbation of chronic obstructive pulmonary disease, acute bronchitis. Continue current medical management. PLAN OF TREATMENT: Okay for home discharge. Outpatient followup suggested post-discharge in couple of weeks, early in case of any worsening of the symptoms. Continue abstinence from tobacco use. Continue previous other home medications for the long-term management of COPD as previously. DEBORAH FARNSWORTH MD CM:PNTRANS [id number] DEBORAH WALKER MD 04/18/18 1326 interface
--- NOTE | ~2018-04-13 | CON ---
[place], [place] REPORT OF CONSULTATION NAME: HERBERT MAN [facility] #: [id number] UNIT #: [id number] ROOM: 505 DOCTOR: DEBORAH DAMIAN MD BIRTHDATE: [birth year] DOS: 04/14/2018 PULMONARY CONSULTATION, EVALUATION, AND MANAGEMENT CONSULTATION REQUESTED BY: Hospitalist services. REASON FOR CONSULTATION: To assess the patient's current acute respiratory symptoms with exacerbation of COPD. HISTORY OF PRESENT ILLNESS: The patient was personally seen and examined with ruib-om-roxx encounter, history was confirmed. Physical examination performed. Labs were reviewed. Note done by the regional medical director was approved. A 72-year-old white female patient known to me from the past. She has been admitted to the hospital and treated in 12/2017. The patient was treated at that time for the acute exacerbation of COPD. The patient presented to the Emergency Room on 04/13/2018 with symptoms having progressive increased shortness of breath and chest congestion ongoing for 2 weeks. The symptoms have been noted to gradually worsen. The patient was given the Zithromax. The patient's symptoms were not resolving. She came into the Emergency and she was noted with severe shortness of breath. Shortness of breath has worsened significantly in 24 hours. Gradual increase was noted previously. She was also noted with inability to expectorate sputum at time with small yellow sputum expectoration noted at that time. She does have symptoms of wheezing and has sinus congestion. She has been currently admitted to the hospital for the treatment of acute exacerbation of COPD. REVIEW OF SYSTEMS: Done by the regional medical director. This was approved. PAST MEDICAL HISTORY: 1. The patient was noted with history of COPD. 2. Uncomplicated hxfpjlsy-yx-gysbxg persistent bronchial asthma. 3. History of nicotine abuse. 4. Major depression. 5. General anxiety disorder. PAST SURGICAL HISTORY: 1. Tonsillectomy. 2. Therapeutic bronchoscopy. SOCIAL HISTORY: The patient is , has 2 children, lives at home. Denies any history of alcohol or illicit drug use. Tobacco use for the patient noted since teenager, pack of cigarettes per day. FAMILY HISTORY: Both parents have been . CURRENT MEDICATIONS: Administered noted use of Abilify, duloxetine, vitamin D, Lipitor, Singulair, Lovenox for DVT prophylaxis, nicotine replacement patches, calcium carbonate p.r.n. use, Solu-Medrol 40 mg q. 8 hours, DuoNeb q. 4 hours, Levaquin, lorazepam, and other p.r.n. medications. [place], [place] REPORT OF CONSULTATION NAME: HERBERT MAN UNIT #: [id number] ROOM: [facility] DOCTOR: NIGEL DAMIAN MDM BIRTHDATE: [birth year] DRUG ALLERGIES: THE PATIENT NOTED HAS ALLERGY TO SULFA DRUGS. PHYSICAL EXAMINATION: GENERAL: This is a 72-year-old female who has been noted currently awake and alert without any acute distress. Height of 5 feet 2 inches, weight of 166 pounds. Chest congestion and some cough are noted at the time of the assessment. Height of 5 feet 2 inches. Weight of 166 and BMI 30.3. VITAL SIGNS: The patient has normal temperature since admission, respiratory rate 18-20, heart rate 107-110, and blood pressure 154/78-135/78. The pulse oxygen saturation on room air was 97% saturation. HEENT: Head was atraumatic. Eyes nonicterus. CARDIOVASCULAR SYSTEM: S1, S2 audible. LUNGS: Diffuse reduction in the breath sounds noted in the lungs bilaterally. There were no crackles. Expiratory wheezing was present. ABDOMEN: Soft, nontender. Bowel sounds present. EXTREMITIES: The patient noted without any acute edema. MUSCULOSKELETAL: The patient was noted without any acute deformities. LABORATORY DATA: The CBC that was done on 04/13/2018 was noted as normal CBC with WBC count and platelet count. Eosinophils were elevated at 6.7. PT/PTT were noted as normal. CMP of 04/13/2018 was noted with normal BUN and creatinine. PT/PTT were noted as normal. CMP of that was done on 04/14/2018, this morning, BUN 15, creatinine was normal. CBC this morning, WBC count was normal and the platelet count was normal. Chest x-ray 1 view, which was taken in the Emergency Room was reviewed, does not show acute pulmonary abnormality. CT of the chest that was done on 04/13/2018 was reviewed, does not show any acute pulmonary abnormality including any pulmonary embolism. The PT/PTT repeated again today was normal. IMPRESSION: 1. The patient will be currently admitted to the hospital for acute exacerbation of COPD with acute tracheobronchitis, failed outpatient treatment. The patient has been noted progressive increased respiratory symptom. The patient did not respond to the treatment. She was seen in the Emergency Room on the date of 04/02/2018, treated with antibiotic and other medication, failed to respond to the treatment. 2. 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 3. Chronic nicotine abuse as well as that would be contributing to her recurrence of the acute exacerbation of chronic obstructive pulmonary disease and bronchial asthma exacerbation. PLAN OF TREATMENT: Agree with the current dose of corticosteroids, bronchodilators, and antibiotics. Monitor respiratory symptoms closely. Sputum for Gram stain and culture. No changes in the dose of steroids. Change in medication will be done based on progression of the illness. Other therapy, plan and management previously ordered will be continued. Addition of the Mucinex treatment to help mobilize secretions. Also ordered the viral assessment for patient because the current season viruses could be contributing to her recurrence of acute exacerbation of chronic obstructive pulmonary disease [place], [place] REPORT OF CONSULTATION NAME: HERBERT MAN Mona UNIT #: [id number] ROOM: [facility] DOCTOR: JAVAD WALKER MD,DEBORAH BIRTHDATE: [birth year] as well. Thanks for allowing me to participate in the care of this patient. DEBORAH FARNSWORTH MD CM:CONSTR:REPORT OF CONSULTATION 1306 04/14/18 1732 interface
--- NOTE | ~2018-04-13 | CON ---
[place], [place] REPORT OF CONSULTATION NAME: HERBERT MAN [facility] #: [id number] UNIT #: [id number] ROOM: 505 DOCTOR: LEON ALEGRE DO BIRTHDATE: [birth year] DOS: 04/14/2018 REQUESTING PHYSICIAN: Hospitalist service. REASON FOR CONSULTATION: Acute exacerbation of COPD. HISTORY OF PRESENT ILLNESS: The patient is a 72-year-old female who presented to the ED initially on 04/13/2018 due to shortness of breath. The patient states that she has been experiencing a tight dry cough as well as a dry throat for the past 3 days or so and this is accompanied with increased wheezing. She complains of coughing, so severe that she is experiencing diaphoresis as well as the sensation of feeling dizzy whenever she has coughing spells. Reportedly, the patient was evaluated in the ED at [facility] on 04/02/2018 for the same symptoms as she received azithromycin and a prednisone taper, and was instructed to follow up with her primary care provider. She has not done that and her symptoms have been progressively getting worse and thus she presented to the ED yesterday on 04/13/2018. A chest x-ray obtained at that time showed no acute cardiopulmonary process. She was diagnosed with an acute exacerbation of COPD and she was admitted to the general medical floor with telemetry monitoring for further care. The Pulmonary Medicine Service was consulted for further management of the patient's acute exacerbation of COPD. PAST MEDICAL HISTORY: List includes asthma, COPD, anxiety, dyslipidemia, major depression, vitamin D deficiency. PAST SURGICAL HISTORY: List includes history of a tonsillectomy, history of surgery to the fourth and fifth digits of her right hand, history of a prior bronchoscopy on 10/18/2017. SOCIAL HISTORY: The patient admits to smoking half a pack a day off and on for a total span of 40 years. She denies consumption of alcohol or use of any illicit drugs. FAMILY HISTORY: Reportedly, the patient's father from COPD at age 78 and the patient's mother from a malignancy at the age of 72. ALLERGIES: SULFONAMIDES. CURRENT MEDICATIONS: List include calcium carbonate 500 mg 3 times a day as needed for indigestion, Abilify 5 mg every 12 hours, Ativan 0.5 mg 3 times a day as needed for anxiety, Cymbalta 60 mg twice a day, cholecalciferol 1000 international units daily, atorvastatin 20 mg daily, Singulair 10 mg daily, Levaquin IV 500 mg daily, Lovenox subq 40 mg daily, IV Solu-Medrol 40 mg every 8 hours, DuoNeb treatments every 4 hours. REVIEW OF SYSTEMS: GENERAL: Denies fevers or chills. HEENT: Denies changes to vision, hearing, eye pain, ear pain, or dysphagia. She does admit to a dry throat. CARDIOVASCULAR: Denies chest pain, palpitations. Admits to diaphoresis. [place], [place] REPORT OF CONSULTATION NAME: HERBERT MAN UNIT #: [id number] ROOM: [facility] DOCTOR: LEON ALEGRE DO BIRTHDATE: [birth year] RESPIRATORY: Admits to shortness of breath, dyspnea on exertion, cough, wheezing, but denies production of sputum. ABDOMEN: Denies nausea, vomiting, abdominal pain, diarrhea, melena or hematochezia. GENITOURINARY: Denies dysuria, hematuria, increased urinary frequency or urgency. NEUROLOGICAL: Admits to dizziness. Denies lightheadedness. PSYCHOLOGICAL: Denies anxiety, depression or substance abuse. ENDOCRINE: Denies intolerance to heat or cold. SKIN: Denies any new rashes, ulcers, or lesions. PHYSICAL EXAMINATION: VITAL SIGNS: Show temperature at 98.1 degrees Fahrenheit, heart rate 107, respiratory rate 20, blood pressure 154/78, pulse oximetry 95% on 2 liters via nasal cannula. GENERAL APPEARANCE: The patient was awake, alert, responsive, cooperative and in no acute distress. HEENT: Head was normocephalic and atraumatic. There were no lesions or ulcerations noted to the eyes. NECK: Trachea appears midline. HEART: Rate was tachycardic, rhythm was regular. Positive S1 and S2 sounds were heard. No murmurs, rubs or gallops were appreciated. PULMONARY: Rhonchi and wheezing was heard on exam. No rales were present. ABDOMEN: Soft, nondistended, nontender to palpation. Bowel sounds are present. EXTREMITIES: The bilateral lower extremities were without edema. No clubbing, cyanosis or erythema was noted. NEUROLOGIC: The patient was grossly without any focal neurologic deficits. Cranial nerves 2-12 were grossly intact. PSYCHOLOGICAL: The patient was within normal mood and affect. She was a poor historian. SKIN: Warm and dry without any induration or erythema. LABORATORY DATA: CBC from today shows white count 8.2, hemoglobin 13.9, hematocrit 42.1, platelets at 283. Coagulation studies from today show PT at 10.1, INR 0.9, activated PTT 21.1. Chemistries from today shows sodium 138, potassium 4.0, chloride 104, bicarbonate 24, BUN 15, creatinine 1.07, glucose 182, hemoglobin A1c 6.1, calcium 8.4, phosphorus 2.7, magnesium 2.1, total bilirubin 0.3, AST 21, ALT 25, alkaline phosphatase 62, albumin 3.0. Lipid panel shows hypercholesterolemia, vitamin B12 at 780, vitamin D 29.5, folate 13.71, TSH 0.621, free T4 1.19. In terms of microbiology, blood cultures are pending and urine culture is pending as well. IMAGING STUDIES: Chest x-ray obtained on 04/13/2018 showed no acute cardiopulmonary process and no change compared to prior film from 04/02/2018. A CTA obtained with IV contrast on 04/13/2018 showed no pulmonary embolism or other acute intrathoracic process. IMPRESSION: [place], [place] REPORT OF CONSULTATION NAME: MAGDAHERBERT M UNIT #: [id number] ROOM: [facility] DOCTOR: LEON ALEGRE DO BIRTHDATE: [birth year] 1. Acute exacerbation of chronic obstructive pulmonary disease. 2. Tachycardia. 3. Overweight. 4. Lymphopenia. 5. Hyperglycemia. 6. Prediabetes. 7. Moderate protein-calorie malnutrition. 8. Hypercholesterolemia, which is already known. 9. Vitamin D deficiency, which is already known. 10. Tobacco abuse. PLAN OF MANAGEMENT: The patient is currently on IV Levaquin, IV Solu-Medrol, bronchodilator therapy, as needed Nicoderm patch has been added to the patient's medication regimen. Cultures are pending and sputum culture has also been ordered, supplemental oxygen should be titrated to maintain pulse oximetry at 92% or greater. Pulmonary medicine will continue to follow. Leon Alegre DO DEBORAH FARNSWORTH MD CM:CONSTR:REPORT OF CONSULTATION 1205 04/14/18 1332 interface
--- NOTE | ~2018-04-13 | PR ---
[place], [place] PROGRESS NOTE NAME: HERBERT MAN [facility] #: [id number] UNIT #: [id number] ROOM: 505 DOCTOR: JAVAD WALKER MD,DEBORAH BIRTHDATE: [birth year] DOS: 04/16/2018 SUBJECTIVE: The patient noted comfortable at this time, resting on the bed without any acute distress, noted with gradual reduction of respiratory symptoms, but resolution noted incomplete. There were in intensity. Symptoms have been resolving. Still reported moderate cough with expiratory wheezing and shortness breath with exertion. OBJECTIVE: VITAL SIGNS: Normal temperature, respiratory rate of 18, heart rate 80, blood pressure 136/66, pulse ox saturation on room air 95% saturation. HEENT: No new change. NECK: Supple. CARDIOVASCULAR: S1, S2 audible. LUNGS: The patient with moderate decreased breath sounds, oefo-rm-hludzxlw expiratory wheezing. There were no crackles. ABDOMEN: Soft, nontender. EXTREMITIES: Without any acute edema. IMPRESSION: Resolving acute exacerbation of chronic obstructive pulmonary disease, acute tracheobronchitis, gradually current plan of management. PLAN OF MANAGEMENT: No changes in plan of care at this time. Continue the patient's current therapy, plan of care as ongoing. Usual care, other supportive plan of therapy and treatments. DEBORAH FARNSWORTH MD CM:PNTRANS 1412 1628 DEBORAH WALKER MD 04/16/18 1626 interface
--- NOTE | ~2018-04-13 | PR ---
[place], [place] PROGRESS NOTE NAME: HERBERT MAN [facility] #: [id number] UNIT #: [id number] ROOM: 505 DOCTOR: JAVAD WALKER MD,DEBORAH BIRTHDATE: [birth year] DOS: 04/17/2018 SUBJECTIVE: The patient noted comfortable at this time, resting in the bed. The patient this morning noted with persistent cough and wheezing, which has been decreasing, but not completely resolved. Denies symptoms of chest pain, fever or chills. No symptoms of nausea or vomiting. OBJECTIVE: VITAL SIGNS: For the patient, which have recorded shows a normal temperature, respiratory rate 18, heart rate 74, blood pressure 135/74. Pulse oxygen saturation of the patient room air 92% saturation. HEENT: No new change. NECK: Supple. CARDIOVASCULAR: S1, S2 audible. LUNGS: Moderate decreased breath sounds, mild expiratory wheezing, no crackles. ABDOMEN: Soft, nontender. Bowel sounds present. EXTREMITIES: No acute edema. LABORATORY DATA: The patient's CMP noted normal BUN and creatinine. CBC: WBC count 13.8, hemoglobin and hematocrit were normal. IMPRESSION: The patient has been currently noted with ongoing acute exacerbation of chronic obstructive pulmonary disease, acute bronchitis with gradual but slow improvement, still noted. The wheezing of the patient not completely resolved with nonproductive cough, mild to moderately. PLAN OF TREATMENT: Continue current plan of therapy, bronchodilators, oxygen supplementation, use of the corticosteroids. Possible consideration of home discharge the patient tomorrow morning depending further improvement in the respiratory symptoms. DEBORAH FARNSWORTH MD CM:PNTRANS 1312 1601 DEBORAH WALKER MD 04/17/18 1558 interface
--- NOTE | ~2018-04-13 | EKG ---
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
[~2018-04-13 12:40] MED LIST changes: +DOXEPIN HCL25 MG PO; +DULOXETINE HCL60 MG PO; +POTASSIUM CHLO20 ME4 PO
[2018-04-13 12:42] VITALS: BP 132/76
[2018-04-13 13:40] LABS: BASO # 0.1 10*3/uL (0.0-0.1); BASO % 0.5 % (0.0-1.0); EOS # 0.7 10*3/uL (0.0-0.4); EOS % 6.7 % (1.0-4.0); HEMATOCRIT 46.5 % (37.0-47.0); HEMOGLOBIN 15.5 g/dl (12.0-16.0); LYMPH # 1.7 10*3/uL (1.3-4.4); LYMPH % 17.5 % (27.0-41.0); MEAN CELL VOLUME 93.2 fl (81.0-99.0); MEAN CORPUSCULAR HGB 31.1 pg (27.0-31.0); MEAN CORPUSCULAR HGB CONC 33.3 g/dl (33.0-37.0); MEAN PLATELET VOLUME 9.5 fl (9.6-12.3); MONO # 0.7 10*3/uL (0.1-1.0); MONO % 6.8 % (3.0-9.0); NEUT # 6.7 10*3/uL (2.3-7.9); NEUT % 67.4 % (47.0-73.0); PLATELET COUNT AUTOMATED 298 10*3/uL (130-400); RED BLOOD COUNT 4.99 10*6/uL (4.10-5.10); RED CELL DISTRI WIDTH 12.7 % (0-14.5); WHITE BLOOD COUNT 9.9 10*3/uL (4.8-10.8)
[2018-04-13 13:48] LABS: ACT PARTIAL THROMBO TIME 22.3 SECONDS (20.8-31.5); INTERNATIONAL NORM RATIO 0.9 (2.0-3.5)
[2018-04-13 14:00] LABS: ALBUMIN 3.3 gm/dl (3.1-4.5); ALKALINE PHOSPHATASE 72 U/L (45-117); BUN 12 mg/dl (7-24); CHLORIDE 103 mmol/L (98-107); CREATININE 0.93 mg/dL (0.55-1.02); LIPASE 88 U/L (73-393); POTASSIUM 4.3 mmol/L (3.5-5.1); SGOT/AST 18 IU/L (3-35); SGPT/ALT 25 U/L (12-78); SODIUM 137 mmol/L (136-145); TOTAL PROTEIN 7.1 gm/dL (6.4-8.2); TROPONIN I < 0.015 ng/ml (<0.045)
[2018-04-13 14:46] VITALS: BP 135/78
[2018-04-13 15:16] LABS: BILIRUBIN NEGATIVE (NEGATIVE); BLOOD NEGATIVE (NEGATIVE); CLARITY SL CLOUDY (CLEAR); COLOR YELLOW (YELLOW); GLUCOSE NEGATIVE (NEGATIVE); KETONE NEGATIVE (NEGATIVE); NITRITE NEGATIVE (NEGATIVE); SPECIFIC GRAVITY 1.015 (1.005-1.030); UROBILINOGEN 0.2 E.U./dl (0.2-1.0)
[2018-04-13 15:17] LABS: BACTERIA 1+; LEUKO ESTERASE TRACE (NEGATIVE)
[2018-04-13] MEDS ORDERED: ABILIFY5 MG PO (15:37)
[2018-04-13] MEDS ORDERED: MELATONIN10 M4 PO (15:40)
[2018-04-13] MEDS ORDERED: STIOLTO RESPIMAT4 GM INH (15:41)
[2018-04-13] MEDS ORDERED: ALBUTEROL2.5 MG/0.5 INH (15:42)
[2018-04-13 16:00] VITALS: BP 136/91
[2018-04-13 20:00] VITALS: BP 125/48; BP 157/87
[2018-04-14] VITALS (7 sets, daily range): BP systolic 121–160; BP diastolic 65–84
[2018-04-14 06:52] LABS: HEMATOCRIT 42.1 % (37.0-47.0); HEMOGLOBIN 13.9 g/dl (12.0-16.0); MEAN CELL VOLUME 94.2 fl (81.0-99.0); MEAN CORPUSCULAR HGB 31.1 pg (27.0-31.0); MEAN PLATELET VOLUME 9.9 fl (9.6-12.3); PLATELET COUNT AUTOMATED 283 10*3/uL (130-400); RED BLOOD COUNT 4.47 10*6/uL (4.10-5.10); RED CELL DISTRI WIDTH 12.6 % (0-14.5); WHITE BLOOD COUNT 8.2 10*3/uL (4.8-10.8)
[2018-04-14 07:09] LABS: BUN 15 mg/dl (7-24); CHLORIDE 104 mmol/L (98-107); CHOLESTEROL 220 mg/dL (<200); CREATININE 1.07 mg/dL (0.55-1.02); PHOSPHOROUS 2.7 mg/dL (2.5-4.9); SGOT/AST 21 IU/L (3-35); SGPT/ALT 25 U/L (12-78); SODIUM 138 mmol/L (136-145); TOTAL PROTEIN 6.2 gm/dL (6.4-8.2); TRIGLYCERIDES 80 mg/dl (<150); VLDL CHOLESTEROL 16 mg/dL (6-40)
[2018-04-14 07:16] LABS: ALKALINE PHOSPHATASE 62 U/L (45-117); FREE T4 1.19 ng/dl (0.76-1.46); HDL CHOLESTEROL 70 mg/dl (40-60); LDL CHOLESTEROL 134 mg/dL (9-159); THYROID STIM HORMONE (HS) 0.621 uIU/ml (0.358-4.75)
[2018-04-14 07:19] LABS: ACT PARTIAL THROMBO TIME 21.1 SECONDS (20.8-31.5); INTERNATIONAL NORM RATIO 0.9 (2.0-3.5)
[2018-04-14 07:43] LABS: TOTAL CELLS COUNTED 100 #CELLS
[2018-04-14 07:44] LABS: PLATELET SUFFICIENCY NORMAL (NORMAL)
[2018-04-14 10:01] LABS: VITAMIN D, 25-HYDROXY 29.5 ng/mL (30-100)
[2018-04-15] VITALS: BP 132/64
[2018-04-15 08:00] VITALS: BP 140/72
[2018-04-15 09:11] VITALS: BP 138/82
[2018-04-15 12:00] VITALS: BP 142/70
[2018-04-15 16:00] VITALS: BP 132/6
[2018-04-15 20:00] VITALS: BP 144/74
[2018-04-16] VITALS: BP 134/66
[2018-04-16 07:15] LABS: BASO % 0.1 % (0.0-1.0); HEMATOCRIT 42.9 % (37.0-47.0); HEMOGLOBIN 14.3 g/dl (12.0-16.0); LYMPH # 0.9 10*3/uL (1.3-4.4); LYMPH % 5.1 % (27.0-41.0); MEAN CELL VOLUME 93.5 fl (81.0-99.0); MEAN CORPUSCULAR HGB 31.2 pg (27.0-31.0); MEAN CORPUSCULAR HGB CONC 33.3 g/dl (33.0-37.0); MEAN PLATELET VOLUME 9.8 fl (9.6-12.3); MONO # 0.7 10*3/uL (0.1-1.0); MONO % 4.4 % (3.0-9.0); NEUT # 15.1 10*3/uL (2.3-7.9); NEUT % 89.8 % (47.0-73.0); PLATELET COUNT AUTOMATED 296 10*3/uL (130-400); RED BLOOD COUNT 4.59 10*6/uL (4.10-5.10); RED CELL DISTRI WIDTH 12.6 % (0-14.5); WHITE BLOOD COUNT 16.9 10*3/uL (4.8-10.8)
[2018-04-16 07:38] LABS: ALBUMIN 3.2 gm/dl (3.1-4.5); ALKALINE PHOSPHATASE 57 U/L (45-117); BUN 23 mg/dl (7-24); CHLORIDE 102 mmol/L (98-107); CREATININE 0.91 mg/dL (0.55-1.02); SGOT/AST 18 IU/L (3-35); SGPT/ALT 25 U/L (12-78); SODIUM 137 mmol/L (136-145); TOTAL PROTEIN 6.3 gm/dL (6.4-8.2)
[2018-04-16 12:00] VITALS: BP 136/82
[2018-04-16 16:00] VITALS: BP 143/88
[2018-04-16 20:00] VITALS: BP 127/61
[2018-04-17] VITALS: BP 137/73
[2018-04-17 06:41] LABS: BASO % 0.1 % (0.0-1.0); HEMATOCRIT 43.1 % (37.0-47.0); HEMOGLOBIN 14.3 g/dl (12.0-16.0); LYMPH # 1.1 10*3/uL (1.3-4.4); LYMPH % 7.8 % (27.0-41.0); MEAN CELL VOLUME 92.7 fl (81.0-99.0); MEAN CORPUSCULAR HGB 30.8 pg (27.0-31.0); MEAN CORPUSCULAR HGB CONC 33.2 g/dl (33.0-37.0); MEAN PLATELET VOLUME 9.5 fl (9.6-12.3); MONO # 0.9 10*3/uL (0.1-1.0); MONO % 6.3 % (3.0-9.0); NEUT # 11.8 10*3/uL (2.3-7.9); NEUT % 84.9 % (47.0-73.0); PLATELET COUNT AUTOMATED 292 10*3/uL (130-400); RED BLOOD COUNT 4.65 10*6/uL (4.10-5.10); RED CELL DISTRI WIDTH 12.4 % (0-14.5); WHITE BLOOD COUNT 13.8 10*3/uL (4.8-10.8)
[2018-04-17 07:09] LABS: ALBUMIN 2.9 gm/dl (3.1-4.5); BUN 23 mg/dl (7-24); CHLORIDE 102 mmol/L (98-107); CREATININE 0.91 mg/dL (0.55-1.02); SGOT/AST 12 IU/L (3-35); SGPT/ALT 22 U/L (12-78); SODIUM 136 mmol/L (136-145)
[2018-04-17 07:11] LABS: ALKALINE PHOSPHATASE 56 U/L (45-117); TOTAL PROTEIN 6.1 gm/dL (6.4-8.2)
[2018-04-17 08:00] VITALS: BP 135/74
[2018-04-17 12:00] VITALS: BP 139/76
[2018-04-17 16:00] VITALS: BP 134/73
[2018-04-17 20:00] VITALS: BP 139/85
[2018-04-18] VITALS: BP 134/71
[2018-04-18 08:00] VITALS: BP 118/66
[2018-04-18] MEDS ORDERED: MUCINEX ER600 MG PO (09:01)
[2018-04-18] MEDS ORDERED: PREDNISONE10 MG PO (09:01)
[2018-04-18] MEDS ORDERED: NICOTROL10 MG INH (09:01)
[2018-04-18] MEDS ORDERED: LEVOFLOXACIN500 MG PO (09:01)
[2018-04-19 02:04] LABS: ADENOVIRUS Negative (Negative); INFLUENZA A Negative (Negative); INFLUENZA B Negative (Negative); METAPNEUMOVIRUS Negative (Negative); PARAINFLUENZA 1 Negative (Negative); PARAINFLUENZA 2 Negative (Negative); PARAINFLUENZA 3 Negative (Negative); RHINOVIRUS Negative (Negative); RSV A Negative (Negative); RSV B Negative (Negative)
== END 2018-04-18 12:14 | disposition home or self-care (01) | DRG 871 ==
LOC: ED 12:40 → EDHOLD 14:40 → 5E 14:40
PROVIDERS: Family Medicine; Internal Medicine; Internal Medicine Critical Care Medicine; Nurse Practitioner Family
DX: A41.9 Sepsis, unspecified organism (principal); J18.9 Pneumonia, unspecified organism; J44.1 Chronic obstructive pulmonary disease with (acute) exacerbation; J44.0 Chronic obstructive pulmonary disease with (acute) lower respiratory infection; E44.0 Moderate protein-calorie malnutrition; J45.21 Mild intermittent asthma with (acute) exacerbation; F32.9 Major depressive disorder, single episode, unspecified; E78.00 Pure hypercholesterolemia, unspecified; J20.9 Acute bronchitis, unspecified; E55.9 Vitamin D deficiency, unspecified; R73.03 Prediabetes; F41.1 Generalized anxiety disorder; E66.3 Overweight; E83.41 Hypermagnesemia; E78.5 Hyperlipidemia, unspecified; R73.9 Hyperglycemia, unspecified; F17.210 Nicotine dependence, cigarettes, uncomplicated; Z87.440 Personal history of urinary (tract) infections; Z88.2 Allergy status to sulfonamides; Z79.899 Other long term (current) drug therapy; Z83.6 Family history of other diseases of the respiratory system; Z80.9 Family history of malignant neoplasm, unspecified; Z84.89 Family history of other specified conditions; Z71.6 Tobacco abuse counseling; Z68.30 Body mass index [BMI] 30.0-30.9, adult

== ENCOUNTER 2018-07-02 10:12 | Emergency (ER) | payer MEDICARE ==
[~2018-07-02 10:12] MED LIST changes: +ABILIFY5 MG PO; +LEVOFLOXACIN500 MG PO; +MELATONIN10 M4 PO; +MUCINEX ER600 MG PO; +NICOTROL10 MG INH
[2018-07-02 10:13] VITALS: BP 126/85
[2018-07-02 11:02] LABS: BASO # 0.1 10*3/uL (0.0-0.1); BASO % 0.7 % (0.0-1.0); EOS # 0.3 10*3/uL (0.0-0.4); EOS % 4.8 % (1.0-4.0); HEMATOCRIT 46.4 % (37.0-47.0); HEMOGLOBIN 15.2 g/dl (12.0-16.0); LYMPH # 1.1 10*3/uL (1.3-4.4); LYMPH % 16.5 % (27.0-41.0); MEAN CELL VOLUME 93.4 fl (81.0-99.0); MEAN CORPUSCULAR HGB 30.6 pg (27.0-31.0); MEAN CORPUSCULAR HGB CONC 32.8 g/dl (33.0-37.0); MEAN PLATELET VOLUME 9.4 fl (9.6-12.3); MONO # 0.5 10*3/uL (0.1-1.0); MONO % 7.6 % (3.0-9.0); NEUT # 4.8 10*3/uL (2.3-7.9); PLATELET COUNT AUTOMATED 274 10*3/uL (130-400); RED BLOOD COUNT 4.97 10*6/uL (4.10-5.10); RED CELL DISTRI WIDTH 13.2 % (0-14.5); WHITE BLOOD COUNT 6.8 10*3/uL (4.8-10.8)
[2018-07-02 11:16] LABS: ALBUMIN 3.3 gm/dl (3.1-4.5); ALKALINE PHOSPHATASE 69 U/L (45-117); BUN 16 mg/dl (7-24); CHLORIDE 109 mmol/L (98-107); CREATININE 1.08 mg/dL (0.55-1.02); POTASSIUM 4.2 mmol/L (3.5-5.1); SGOT/AST 17 IU/L (3-35); SGPT/ALT 21 U/L (12-78); SODIUM 141 mmol/L (136-145); TOTAL PROTEIN 6.6 gm/dL (6.4-8.2)
[2018-07-02] MEDS ORDERED: PREDNISONE20 M1 PO (11:46)
== END 2018-07-02 12:09 | disposition home or self-care (01) ==
LOC: ED 10:12
PROVIDERS: Emergency Medicine
DX: J44.1 Chronic obstructive pulmonary disease with (acute) exacerbation (principal); E78.00 Pure hypercholesterolemia, unspecified; F17.200 Nicotine dependence, unspecified, uncomplicated; Z88.2 Allergy status to sulfonamides; Z79.2 Long term (current) use of antibiotics; Z79.899 Other long term (current) drug therapy

== ENCOUNTER 2018-07-17 10:58 | Inpatient (IN) | payer MEDICARE ==
[~2018-07-17] VITALS: Ht 157.4 cm; Wt 74.4 kg
--- NOTE | ~2018-07-17 | EKG ---
[place], [place] ELECTROCARDIOGRAM REPORT NAME: HERBERT MAN UNIT #: [id number] ROOM: 506 DOCTOR: MILO DRAFT REPORT BIRTHDATE: [birth year] [facility] Test Date: 2018-07-17 Test Time: 11:27:42 Pat Name: HERBERT MAN Department: Room: 506 Gender: F Packaging Associate: Kelly Horvath : 1945 Requested By: RUDDY ERNST Order Number: [id number] Reading MD: Tevin Huizar MD Measurements Intervals [place] Rate: 105 P: 76 TX: 119 QRS: 47 QRSD: 79 T: 60 QT: 337 QTc: 446 Interpretive Statements Sinus tachycardia Low voltage, precordial leads Compared to ECG 04/13/2018 13:15:33 No significant change Electronically Signed On 07-18-2018 14:32:42 PST by Tevin Huizar MD CM:EKGRPT:ELECTROCARDIOGRAM REPORT [id number] 1432 RUDDY FIGUEROA DRAFT REPORT RUDDY ERNST DO
--- NOTE | ~2018-07-17 | PR ---
[place], [place] PROGRESS NOTE NAME: HERBERT MAN [facility] #: [id number] UNIT #: [id number] ROOM: 506 DOCTOR: JAVAD WALKER MD,DEBORAH BIRTHDATE: [birth year] DOS: 07/23/2018 SUBJECTIVE: The patient was noted comfortable at this time, continued to show reduction and improvement in respiratory symptoms with improvement in coughing, wheezing, and shortness of breath, all noted. Bronchoscopy completed 2 days ago. OBJECTIVE: VITAL SIGNS: Normal temperature, respiratory rate 18, heart rate 81, blood pressure 120/65. Pulse ox saturation on room air 94% saturation. HEENT: No acute change. CARDIOVASCULAR: S1, S2 audible. LUNGS: Without any wheezing or crackles. ABDOMEN: Soft, nontender. Bowel sounds present. EXTREMITIES: No acute edema. IMPRESSION: Resolving acute uncomplicated severe persistent bronchial asthma, ____ with acute bronchitis and other respiratory symptoms. PLAN OF TREATMENT: Discharge the patient home on tapering prednisone and other medical management. FOLLOWUP: The patient has been already scheduled for the assessment and management of current uncomplicated severe persistent bronchial asthma and allergic phenotype. DEBORAH FARNSWORTH MD CM:PNTRANS [id number] DEBORAH WALKER MD 07/24/18 0138 interface
--- NOTE | ~2018-07-17 | PR ---
[place], [place] PROGRESS NOTE NAME: HERBERT MAN [facility] #: [id number] UNIT #: [id number] ROOM: 506 DOCTOR: JAVDA WALKER MD,DEBORAH BIRTHDATE: [birth year] DOS: 07/22/2018 SUBJECTIVE: The patient has a bronchoscopy done yesterday with reduction of respiratory symptoms noted with coughing, or wheezing. The resolution phase noted incomplete. The patient denies symptoms of fever or chills. Denies symptoms of hemoptysis. OBJECTIVE: VITAL SIGNS: Normal temperature, respiratory rate of 12, heart rate 77, blood pressure 138/66. Pulse oxygen saturation on room air 95% saturation. HEENT: Examination shows no acute change. CARDIOVASCULAR: S1, S2 is audible. LUNGS: Noted moderate decreased breath sounds and mild to moderate expiratory wheezing. There were no crackles. ABDOMEN: Soft, nontender. Bowel sounds present. EXTREMITIES: The patient without any acute edema. LABORATORY DATA: Culture of the bronchial washing was in normal stacy. Final results were pending. IMPRESSION: The patient was currently noted with acute exacerbation of chronic obstructive pulmonary disease, acute tracheobronchitis, status post bronchoscopy with reduction of the respiratory symptoms, the resolution noted incomplete. PLAN OF MANAGEMENT: Continuation of the current plan of management at this time without any changes. Follow the culture results. Potential discharge in the morning depending on further improvement in the respiratory symptoms. DEBORAH FARNSWORTH MD CM:PNTRANS [id number] DEBORAH WALKER MD 07/23/18 0209 interface
--- NOTE | ~2018-07-17 | CON ---
[place], [place] REPORT OF CONSULTATION NAME: HERBERT MAN [facility] #: [id number] UNIT #: [id number] ROOM: 506 DOCTOR: DEBORAH DAMIAN MD BIRTHDATE: [birth year] DOS: 07/20/2018 PULMONARY CONSULTATION, EVALUATION, AND MANAGEMENT REASON FOR CONSULTATION: To assess the patient for recurrence of acute exacerbation of chronic obstructive pulmonary disease with severe cough and other symptoms. HISTORY OF PRESENT ILLNESS: The patient has been admitted to the hospital since 07/17/2018. This is a 72-year-old white female patient who has been well known to me. She has reported symptoms of progressive increase of coughing, chest congestion with a small amount of clear sputum expectoration and wheezing. The symptoms have been noted worsened progressively requiring assessment in the Emergency Room. She has been assessed in the Emergency Room. The patient admitted to the hospital for further medical management. She has been noted with partial reduction of the respiratory symptoms, still noted excessive severe chest congestion. The patient inability to expectorate sputum. Symptoms of chest pain, chest tightness reported. There were symptoms of chest trauma. REVIEW OF SYSTEMS: CONSTITUTIONAL: Fatigue and tiredness reported. Denies symptoms of fever or chills. EYES: Denies any burning, redness, or tenderness. EARS, NOSE, THROAT SYMPTOMS: Denies sore throat, hoarseness, otalgia, postnasal drainage or epistaxis. CARDIOVASCULAR: Denies angina pain, edema, pain of the lower extremities. MUSCULOSKELETAL: Denies any joint pain, redness, or tenderness. SKIN: Denies abnormal lesions or rashes. CENTRAL NERVOUS SYSTEM: No dizziness, ____, diplopia, syncopal episodes. Remaining systems were reviewed, they were noted all negative. PAST MEDICAL HISTORY: 1. 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 2. COPD. 3. Nicotine dependence. 4. Major depression. 5. General anxiety disorder. PAST SURGICAL HISTORY: 1. Tonsillectomy. 2. Therapeutic bronchoscopy. SOCIAL HISTORY: The patient is , has 2 children, lives at home. Denies alcohol or illicit drug use. Tobacco use noted since early teens a pack of cigarettes per day. FAMILY HISTORY: Both parents . CURRENT MEDICATIONS: Administered for the patient were noted as use of [place], [place] REPORT OF CONSULTATION NAME: HERBERT MAN UNIT #: [id number] ROOM: 506 DOCTOR: JAVAD WALKER MD,DEBORAH BIRTHDATE: [birth year] Singulair, vitamin D, Lovenox, Abilify, Cymbalta, Solu-Medrol 40 mg b.i.d., DuoNeb every 4 hours, Zithromax, Rocephin, and other p.r.n. medications administered. DRUG ALLERGIES: SULFA DRUGS. PHYSICAL EXAMINATION: GENERAL: This is a 72-year-old female noted currently awake and alert without acute distress. Height of 5 feet 2 inches, weight of 164 pounds. VITAL SIGNS: The patient was noted temperature recorded normal in last 3 days, respiratory rate 18-20, heart rate 65-100, blood pressure 127/76 to 144/80. Pulse oxygen saturation on room air at rest was 92% saturation. HEENT: Head was atraumatic. Eye nonicterus. NECK: Supple. CARDIOVASCULAR: S1, S2 audible. LUNGS: Diffuse expiratory wheezing, no crackles. ABDOMEN: Soft, flat, nontender. Bowel sounds present. EXTREMITIES: The patient without any acute edema. MUSCULOSKELETAL: No acute deformities or skin lesions or rashes. CENTRAL NERVOUS SYSTEM: Cranial nerves 2-12 intact. LABORATORY DATA: CBC of the patient on 07/17/2018, WBC count 9.2, hemoglobin and hematocrit normal, eosinophils were elevated at 5.1%, normal platelet count. Eosinophils would be noted greater than 400 as absolute eosinophil count. Lactic acid 2.8 in followup 2.0 on admission 07/17/2018. PT/PTT on 07/17/2018 were normal. The CMP on 07/17/2018 on admission, BUN of 13, creatinine 1.05, glucose 129, remaining electrolytes normal. Troponin on 07/17/2018 noted as normal. BMP that was done on 07/19/2018, normal BUN and creatinine. Glucose 139. Review of the radiology data for this current admission from PACS images was reviewed with chest x-ray one-view that was done on 07/17/2018 noted hyperinflation without acute pulmonary infiltration. IMPRESSION: 1. The patient has been admitted to the hospital. 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 2. Acute exacerbation of chronic obstructive pulmonary disease, chronic nicotine dependence as well. Other past history is as noted in the past history component. PLAN OF MANAGEMENT: The patient has been already getting maximal medical management. The patient will undergo therapeutic bronchoscopy as suggested to clear out the mucus impaction of major airways. Tobacco cessation was addressed with the patient with a counseling about tobacco cessation as well. The risk and benefits of bronchoscopy were known to the patient, accepted, and will be done tomorrow morning. Other supportive therapy, plan of management. The patient will be assessed as an outpatient for the need of parenteral medication in the form of Fasenra or Nucala or similar medication for the long-term [place], [place] REPORT OF CONSULTATION NAME: HERBERT MAN Mona UNIT #: [id number] ROOM: [facility] DOCTOR: DEBORAH DAMIAN MD BIRTHDATE: [birth year] management control of uncomplicated severe persistent bronchial asthma. DEBORAH FARNSWORTH MD CM:CONSTR:REPORT OF CONSULTATION 1308 07/20/18 1925 interface
--- NOTE | ~2018-07-17 | PROC NOTE ---
[place], [place] PROCEDURE NOTE [id number] UN[facility] #: [id number] ROOM: 506 DOCTOR: JAVAD WALKER MD,DEBORAH BIRTHDATE: [birth year] DOS: 07/21/2018 PREOPERATIVE DIAGNOSES: Severe nonresolving cough and mucous impaction major airways. POSTOPERATIVE DIAGNOSES: Removal of the mucus impaction in the endobronchial tree bilaterally and findings of acute tracheobronchitis also noted. COMPLICATIONS: None. PROCEDURE DESCRIPTION: Informed consent obtained with the patient. The patient brought to the OR and placed in supine position. Conscious sedation was administered by the Anesthesia Department. After achieving proper sedation, airway introduced into the mouth. Bronchoscope advanced to the airway into laryngeal area. Epiglottis and vocal cords were seen. Vocal cord was noted symmetrically moving with movements. The bronchoscope entered the vocal cord and tracheal lumen. Tracheal lumen noted with moderate amount of secretion, which appeared to be icteric where small amount of purulent secretions suctioned out at the shannon level. The right upper, right middle, right lower, left upper, lingula, and lower lobe bronchus were all examined. The impaction of mucus was cleared in the endobronchial tree bilaterally. The bronchial washing sent for appropriate cultures. Postoperative finding will be discussed with the patient once the patient recovers from the effects of acute sedation. No major change in treatment at this time will be recommended. DEBORAH FARNSWORTH MD CM:PROCNOTE:PROCEDURE NOTE [id number] DEBORAH WALKER MD
--- NOTE | ~2018-07-17 | PR ---
[place], [place] PROGRESS NOTE NAME: HERBERT MAN UNIT #: [id number] ROOM: 506 DOCTOR: JAVAD WALKER MD,DEBORAH BIRTHDATE: [birth year] DOS: 07/21/2018 SUBJECTIVE: The patient remains with severe cough. The patient remains mostly nonproductive, minimal sputum expectoration time. There were no symptoms of hemoptysis. Shortness of breath occurs with mild exertion with expiratory wheezing noted intermittently. Symptoms of chest pain reported. Denies symptoms of headache, diplopia, nausea, vomiting, diarrhea, abdominal pain, hematemesis, melena, hematochezia, or edema or pain of the lower extremities. Denies any abnormal skin rashes. She is bronchoscopy, which was planned to be done today. OBJECTIVE: VITAL SIGNS: For the patient, which has been recorded shows a normal temperature, respiratory rate of 20, heart rate 109, blood pressure 126/71. Pulse oxygen saturation on room air was 98% saturation. HEENT: Head was atraumatic. Eyes: No icterus. NECK: Supple. CARDIOVASCULAR: S1, S2 is audible. LUNGS: The patient was noted with moderate decreased breath sounds, expiratory wheezing bilaterally. ABDOMEN: Soft, flat, nontender, bowel sounds present. EXTREMITIES: Without any acute edema. VISIBLE SKIN: No lesions or rashes. MUSCULOSKELETAL: Without acute deformities. CENTRAL NERVOUS SYSTEM: Cranial nerves 2-12 intact. LABORATORY DATA: Chest x-ray yesterday was noted with no acute abnormality. Hyperinflation changes of COPD were present. CBC this morning, normal WBC count, hemoglobin and hematocrit and platelet count. IMPRESSION: 1. The patient with ongoing acute severe exacerbation of chronic obstructive pulmonary disease as well as allergic, phenotype bronchial asthma exacerbation as well. 2. History of nicotine dependence as well. 3. Severe cough. The patient with suspected mucous impaction, major airways. PLAN OF MANAGEMENT: Proceed with fiberoptic bronchoscopy as planned. Continuation of other therapy, plan of management, care plan for the patient as previously. Usual care. Supportive therapy and other plan of treatment and management, plan of care. Additional treatment changes will be recommended based on progression of the illness. [place], [place] PROGRESS NOTE NAME: HERBERT MAN UNIT #: [id number] ROOM: 506 DOCTOR: DEBORAH DAMIAN MD BIRTHDATE: [birth year] DEBORAH FARNSWORTH MD CM:JULIETA [id number] DEBORAH WALKER MD 07/21/18 1358 interface
[2018-07-17 10:58] VITALS: BP 135/78
[2018-07-17 11:21] LABS: BASO # 0.1 10*3/uL (0.0-0.1); BASO % 0.8 % (0.0-1.0); EOS # 0.5 10*3/uL (0.0-0.4); EOS % 5.1 % (1.0-4.0); HEMATOCRIT 45.6 % (37.0-47.0); HEMOGLOBIN 15.3 g/dl (12.0-16.0); LYMPH # 1.4 10*3/uL (1.3-4.4); LYMPH % 15.6 % (27.0-41.0); MEAN CELL VOLUME 92.9 fl (81.0-99.0); MEAN CORPUSCULAR HGB 31.2 pg (27.0-31.0); MEAN CORPUSCULAR HGB CONC 33.6 g/dl (33.0-37.0); MEAN PLATELET VOLUME 9.5 fl (9.6-12.3); MONO # 0.6 10*3/uL (0.1-1.0); MONO % 6.9 % (3.0-9.0); NEUT # 6.6 10*3/uL (2.3-7.9); NEUT % 71.3 % (47.0-73.0); PLATELET COUNT AUTOMATED 289 10*3/uL (130-400); RED BLOOD COUNT 4.91 10*6/uL (4.10-5.10); RED CELL DISTRI WIDTH 13.1 % (0-14.5); WHITE BLOOD COUNT 9.2 10*3/uL (4.8-10.8)
--- NOTE | 2018-07-17 11:26 | NUR ---
LAB CALLED WITH CRITICAL LACTIC OF 2.8. DR. ERNST NOTIFIED.
[2018-07-17 11:30] LABS: ACT PARTIAL THROMBO TIME 22.4 SECONDS (20.8-31.5); INTERNATIONAL NORM RATIO 0.9 (2.0-3.5)
[2018-07-17 11:42] LABS: ALBUMIN 3.3 gm/dl (3.1-4.5); ALKALINE PHOSPHATASE 67 U/L (45-117); BUN 13 mg/dl (7-24); CHLORIDE 108 mmol/L (98-107); CREATININE 1.05 mg/dL (0.55-1.02); LIPASE 95 U/L (73-393); POTASSIUM 4.2 mmol/L (3.5-5.1); SGOT/AST 16 IU/L (3-35); SGPT/ALT 23 U/L (12-78); SODIUM 138 mmol/L (136-145); TOTAL PROTEIN 6.8 gm/dL (6.4-8.2)
[2018-07-17 11:43] LABS: TROPONIN I < 0.015 ng/ml (<0.045)
[2018-07-17 12:11] VITALS: BP 109/68
[2018-07-17 12:30] VITALS: BP 128/66
--- NOTE | 2018-07-17 12:30 | NUR ---
A 72, admitted to 5E, under the services of DILAN Lam DO with a diagnosis of EXACERBATION OF COPD,DYSPNEA ON EXERTION. Chief complaint is SHORTNESS OF BREATH WITH EXERTION. Patient arrived via bed from ER. Monitor applied. Initial assessment completed. Vital signs taken and recorded. DILAN LAM DO notified of admission to the unit. Orders received. See assessment for past medical history, medications and allergies. Patient and/or family oriented to unit. [facility] visitation policy reviewed. Clothing/patient valuable form completed. CAPRI MAIER
--- NOTE | 2018-07-17 12:36 | NUR ---
MEDS RECONCILED VIA MED CLAIM HISTORY WELL VERIFIED BY PT AT BEDSIDE.
[2018-07-17 16:00] VITALS: BP 105/56
--- NOTE | 2018-07-17 16:57 | NUR ---
PATIENT C/O SOB. SLOUCHED IN BED. PATIENT PULLED UP. PULSE OX 89% RA, O2 APPLIED AT 2L. PULSE OX 94% 2L. ANXIOUS, ATIVAN PROVIDED PER PRN ORDER. CALL LIGHT WITHIN REACH. WILL MONITOR FOR EFFECTIVENESS
--- NOTE | 2018-07-17 18:00 | NUR ---
STATES RELIEF FROM EARLIER ATIVAN. SITTING UP IN BED. RESPIRATIONS EASY. O2 IN USE. IV FLUIDS INFUSING PER ORDER. CALL LIGHT WITHIN REACH. NO FURTHER VOICED COMPLAINTS
[2018-07-17 20:00] VITALS: BP 104/43
--- NOTE | 2018-07-17 20:45 | NUR ---
PT RESTING IN BED. IVF INFUSING WITH NO PROBLEM. RESP-EASY AND REGULAR. OXYGEN IN USE. NO C/O AT THIS TIME. CALL LIGHT IN REACH. SEE SHIFT ASSESSMENT.
[2018-07-17 22:15] LABS: BILIRUBIN NEGATIVE (NEGATIVE); BLOOD 1+ (NEGATIVE); CLARITY SL CLOUDY (CLEAR); COLOR YELLOW (YELLOW); GLUCOSE 2+ (NEGATIVE); KETONE TRACE (NEGATIVE); LEUKO ESTERASE NEGATIVE (NEGATIVE); NITRITE NEGATIVE (NEGATIVE); SPECIFIC GRAVITY >= 1.030 (1.005-1.030); UROBILINOGEN 0.2 E.U./dl (0.2-1.0)
[2018-07-17 22:24] LABS: BACTERIA 1+; EPITHELIAL CELLS 25-30
--- NOTE | 2018-07-17 23:00 | NUR ---
PT RESTING IN BED. REQUESTING ATIVAN FOR ANXIETY. MEDICATED WITH ATIVAN IV PER PRN ORDER, SEE EMAR. CALL LIGHT IN REACH. IVF INFUSING WITH NO PROBLEM.
[2018-07-18] VITALS: BP 117/59
--- NOTE | 2018-07-18 | NUR ---
RESTING IN BED WITH EYES CLOSED, AWAKENS EASILY. MEDICATION EFFECTIVE. NO NEW COMPLAINTS AT THIS TIME. CALL LIGHT IN REACH. SEE SHIFT ASSESSMENT.
--- NOTE | 2018-07-18 04:00 | NUR ---
PT RESTING IN BED WITH EYES CLOSED. RESP-EASY AND REGULAR. CALL LIGHT IN REACH.
--- NOTE | 2018-07-18 05:30 | NUR ---
RESTING IN BED WITH EYES CLOSED. RESP-EASY AND REGULAR. IVF INFUSING WITH NO PROBLEM. CALL LIGHT IN REACH.
[2018-07-18 06:38] LABS: HEMATOCRIT 43.1 % (37.0-47.0); HEMOGLOBIN 13.8 g/dl (12.0-16.0); MEAN CELL VOLUME 94.7 fl (81.0-99.0); MEAN CORPUSCULAR HGB 30.3 pg (27.0-31.0); MEAN PLATELET VOLUME 9.9 fl (9.6-12.3); PLATELET COUNT AUTOMATED 273 10*3/uL (130-400); RED BLOOD COUNT 4.55 10*6/uL (4.10-5.10); WHITE BLOOD COUNT 7.1 10*3/uL (4.8-10.8)
[2018-07-18 06:59] LABS: BUN 17 mg/dl (7-24); CHLORIDE 109 mmol/L (98-107); CHOLESTEROL 247 mg/dL (<200); CREATININE 0.96 mg/dL (0.55-1.02); PHOSPHOROUS 2.9 mg/dL (2.5-4.9); POTASSIUM 4.1 mmol/L (3.5-5.1); SODIUM 141 mmol/L (136-145); TRIGLYCERIDES 81 mg/dl (<150); VLDL CHOLESTEROL 16 mg/dL (6-40)
[2018-07-18 07:04] LABS: ACT PARTIAL THROMBO TIME 20.7 SECONDS (20.8-31.5); INTERNATIONAL NORM RATIO 0.9 (2.0-3.5); PLATELET SUFFICIENCY NORMAL (NORMAL); TOTAL CELLS COUNTED 100 #CELLS
[2018-07-18 07:07] LABS: FREE T4 1.08 ng/dl (0.76-1.46); HDL CHOLESTEROL 76 mg/dl (40-60); LDL CHOLESTEROL 155 mg/dL (9-159); THYROID STIM HORMONE (HS) 0.553 uIU/ml (0.358-4.75)
[2018-07-18 08:00] VITALS: BP 114/56
--- NOTE | 2018-07-18 09:00 | NUR ---
Shoe Cutter in to talk to patient. Patient states lives at home alone with her 2 sons and [id number] checking in on her. There are 28 steps in the home. Physician: Dr. Yissel Dale Pharmacy: [facility] Home health services: none presently but she has had [facility] previously and would like to use them if services are needed Patient's level of ADLs: INDEPENDENT Patient has working utilities: yes DME: nebulizer Follow-up physician's appointment after d/c: will be made by the hospitalist nurse director upon discharge Does patient want to access PORTAL?: no Discharge plan discussed with patient. She lives at home alone with her 2 sons and [id number] checking in on her. She is independent in her ADLs and ambulation. Discussed home health care services and she denies any home needs a at this time. When medically stable she will be discharged to home. Her family will transport. LARRY SANDOVAL
[2018-07-18 09:35] LABS: VITAMIN D, 25-HYDROXY 38.2 ng/mL (30-100)
--- NOTE | 2018-07-18 09:53 | NUR ---
PATIENT C/O "HEADACHE FROM COUGHING" MEDICATED WITH PO PRN TYLENOL, WILL MONITOR FOR EFFECTIVENESS. PATIENT TOLERATED ROUTINE MEDS WELL, ALERT AND ORIENTED. DENIES SOB AT THIS TIME ON 2L 02 NC. SEE SHIFT ASSESSMENT. BED IN LOWEST/LOCKED POSITION, SIDERAILS UP X2 FOR SAFETY, CALL LIGHT WITHIN REACH.
[2018-07-18 12:00] VITALS: BP 126/77
--- NOTE | 2018-07-18 15:08 | NUR ---
PATIENT LAYING IN BED WATCHING TV. ONLY QUESTIONS IV FLUIDS. PATIENT STATES "THE DOCTOR SAID THEY WERE GOING TO BE STOPPING THESE. CAN WE DISCONNECT THEM NOW?" PATIENT WAS INFORMED WE WOULD NEED ORDERS FROM PHYSICAN. PATIENT VOICED UNDERSTANDING. OTHERWISE NO NEEDS OR CONCERNS. BED IS IN LOWEST POSITION WITH WHEELS LOCKED. CALL LIGHT IS WITHIN REACH. ENCOURAGED TO USE CALL LIGHT FOR NEEDS. WILL MONITOR.
[2018-07-18 16:00] VITALS: BP 107/69
[2018-07-18 20:00] VITALS: BP 124/70
--- NOTE | 2018-07-18 21:29 | NUR ---
PRN ATIVAN GIVEN UPON REQUEST FOR COMPLAINTS OF ANXIETY. WILL EVALUATE EFFECTIVENESS. CALL LIGHT IS WITHIN REACH.
--- NOTE | 2018-07-18 22:56 | NUR ---
ATIVAN APPEARS TO BE EFFECTIVE. PATIENT RESTING IN BED WITH EYES CLOSED. RESPIRATIONS ARE EASY AND REGULAR. NO DISTRESS IS NOTED. CALL LIGHT IS WITHIN REACH. WILL MONITOR.
[2018-07-19] VITALS: BP 125/71
[2018-07-19 07:22] LABS: BUN 19 mg/dl (7-24); CHLORIDE 107 mmol/L (98-107); POTASSIUM 4.2 mmol/L (3.5-5.1); SODIUM 139 mmol/L (136-145)
[2018-07-19 08:00] VITALS: BP 142/80
--- NOTE | 2018-07-19 09:25 | NUR ---
PT C/O RIGHT BACK/RIB AREA PAIN, RATES PAIN 3 ON PAIN SCALE 0-10. MEDICATED WITH TYELNOL PO PER PRN ORDER, SEE EMAR. TOLERATED ROUTINE MEDS WITH NO PROBLEM. CALL LIGHT IN REACH. SEE SHIFT ASSESSMENT.
--- NOTE | 2018-07-19 10:05 | NUR ---
RESTING IN BED WITH EYES CLOSED. MEDICATION SEEMS TO BE EFFECTIVE. CALL LIGHT IN REACH.
[2018-07-19 12:00] VITALS: BP 127/76
--- NOTE | 2018-07-19 14:00 | NUR ---
DR. FARNSWORTH AWARE OF CONSULT.
[2018-07-19 16:00] VITALS: BP 138/75
--- NOTE | 2018-07-19 16:10 | NUR ---
PT RESTING IN BED. NO C/O AT THI TIME. CALL LIGHT IN REACH. SEE SHIFT ASSESSMENT
--- NOTE | 2018-07-19 18:00 | NUR ---
NO C/O AT THIS TIME. CALL ABDULKADIR TERRELL.
[2018-07-20] VITALS (8 sets, daily range): BP systolic 94–166; BP diastolic 54–80
--- NOTE | 2018-07-20 07:45 | NUR ---
VITAL SIGNS STABLE. 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 HEART SOUNDS ARE NORMAL, PULSE 98 REGULAR. LUNGS EXPIRATORY WHEEZE NOTED THROUGHOUT. BS X 4, ABDOMEN SOFT, NON TENDER, NON DISTENDED, LAST BM "YESTERDAY" STATED BY THE PATIENT. CAPILAARY REFILL <3 SECONDS IN ALL EXTREMITIES. PEDAL PULSES NOTED WITH +1 EDEMA. PATIENT IS PLEASANT AND COOPERATIVE, WITH NO COMPLAINTS OF PAIN AT THIS TIME. MANUEL VENTURACC
--- NOTE | 2018-07-20 09:00 | NUR ---
Informatics Developer in to see patient. No new needs or request at this time. She denies any home needs. When medically stable she will be discharged to home.
--- NOTE | 2018-07-20 13:00 | NUR ---
RESTING IN BED. RESP-EASY AND REGULAR. NO C/O AT THSI TIME. CALL LIGHT IN REACH.
--- NOTE | 2018-07-20 13:42 | NUR ---
PRE OP QUESTIONNAIRE AND EVALUATED COMPLETED. SURGICAL CONSENT SIGNED. PLACED ON CHART. MANUEL RODRIGUEZ [facility]
--- NOTE | 2018-07-20 16:15 | NUR ---
PT SITTING UP AT BEDSIDE. RESP-EASY AND REGULAR. REQUESTING ATIVAN FOR ANXIETY. MEDICATED WITH ATIVAN PO PER PRN ORDER, SEE EMAR. CALL LIGHT IN REACH. SEE SHIFT ASSESSMENT.
--- NOTE | 2018-07-20 17:00 | NUR ---
RESTING IN BED MEDICATION EFFECTIVE. CALL LIGHT IN REACH.
[2018-07-21] VITALS (9 sets, daily range): BP systolic 126–150; BP diastolic 68–94
[2018-07-21 06:41] LABS: BASO % 0.1 % (0.0-1.0); HEMATOCRIT 40.7 % (37.0-47.0); HEMOGLOBIN 13.5 g/dl (12.0-16.0); LYMPH # 0.6 10*3/uL (1.3-4.4); LYMPH % 8.3 % (27.0-41.0); MEAN CELL VOLUME 93.3 fl (81.0-99.0); MEAN CORPUSCULAR HGB CONC 33.2 g/dl (33.0-37.0); MEAN PLATELET VOLUME 10.3 fl (9.6-12.3); MONO # 0.4 10*3/uL (0.1-1.0); NEUT # 5.8 10*3/uL (2.3-7.9); NEUT % 84.7 % (47.0-73.0); PLATELET COUNT AUTOMATED 254 10*3/uL (130-400); RED BLOOD COUNT 4.36 10*6/uL (4.10-5.10); RED CELL DISTRI WIDTH 12.9 % (0-14.5); WHITE BLOOD COUNT 6.9 10*3/uL (4.8-10.8)
--- NOTE | 2018-07-21 08:10 | NUR ---
PT OFF FLOOR TO OR FOR BRONCH WITH DR FARNSWORTH.
--- NOTE | 2018-07-21 10:44 | NUR ---
PT UP AND AMBULATING IN HALLWAY. NO DYSPNEA NOTED. TOLERATED WELL. OOB IN BATHROOM. VOICES NO OTHER NEEDS AT THIS TIME.
--- NOTE | 2018-07-21 21:31 | NUR ---
PATIENT MEDICATED WITH ATIVAN FOR COMPLAINTS OF ANXIETY. WILL CONTINUE TO MONITOR. CALL LIGHT IN REACH.
[2018-07-22] VITALS: BP 139/74
--- NOTE | 2018-07-22 | NUR ---
ATIVAN EFFECTIVE. RESPIRATIONS REGULAR AND NON-LABORED. NO SIGNS OR SYMPTOMS OF DISTRESS NOTED. CALL LIGHT IN REACH.
--- NOTE | 2018-07-22 04:03 | NUR ---
24 HR chart check completed.
[2018-07-22 06:06] LABS: CREATININE 0.95 mg/dL (0.55-1.02)
[2018-07-22 08:00] VITALS: BP 138/66
[2018-07-22 12:00] VITALS: BP 117/61
[2018-07-22 16:00] VITALS: BP 126/60
[2018-07-22 16:08] LABS: ACID FAST SPEC PROCESSING Concentration (.)
[2018-07-22 20:00] VITALS: BP 108/60
--- NOTE | 2018-07-22 21:59 | NUR ---
LORAZEPAM 0.5 MG GIVEN FOR C/ O ANXIETY.
[2018-07-23] VITALS: BP 113/56
[2018-07-23 08:00] VITALS: BP 122/65
[2018-07-23 12:00] VITALS: BP 122/65
[2018-07-23] MEDS ORDERED: AVPAK AZITHROM250 MG PO (13:19)
[2018-07-23] MEDS ORDERED: PREDNISONE10 MG PO (13:19)
--- NOTE | 2018-07-23 13:56 | NUR ---
PT DISCHARGED AT THIS TIME. IV REMOVED AND PRESSURE DRESSING APPLIED. VERBALIZED UNDERSTANDING OF DISCHARGE INSTRUCTIONS.
[2018-08-10 15:08] LABS: ACID FAST CULTURE Positive (.); M TUBERCULOSIS COMPLEX Negative (.)
[2018-08-11 17:10] LABS: M AVIUM COMPLEX Negative (.); M GORDONAE Not Indicated (.); M KANSASII Not Indicated (.)
== END 2018-07-23 13:56 | disposition home or self-care (01) | DRG 190 ==
LOC: ED 10:58 → 5E 11:50 → EDHOLD 11:50 → 5E 12:01
PROVIDERS: Emergency Medicine; Internal Medicine Critical Care Medicine; Student in an Organized Health Care Education/Training Program; ADMIT Internal Medicine
PROC: 0BC88ZZ Extirpation of Matter from Left Upper Lobe Bronchus, Via Natural or Artificial Opening Endoscopic (ICD-10-PCS; principal; 2018-07-21)
PROC: 0BC78ZZ Extirpation of Matter from Left Main Bronchus, Via Natural or Artificial Opening Endoscopic (ICD-10-PCS; principal; 2018-07-21)
PROC: 0BCB8ZZ Extirpation of Matter from Left Lower Lobe Bronchus, Via Natural or Artificial Opening Endoscopic (ICD-10-PCS; principal; 2018-07-21)
PROC: 0BC58ZZ Extirpation of Matter from Right Middle Lobe Bronchus, Via Natural or Artificial Opening Endoscopic (ICD-10-PCS; principal; 2018-07-21)
PROC: 0BC48ZZ Extirpation of Matter from Right Upper Lobe Bronchus, Via Natural or Artificial Opening Endoscopic (ICD-10-PCS; principal; 2018-07-21)
PROC: 0BC18ZZ Extirpation of Matter from Trachea, Via Natural or Artificial Opening Endoscopic (ICD-10-PCS; principal; 2018-07-21)
PROC: 0BC38ZZ Extirpation of Matter from Right Main Bronchus, Via Natural or Artificial Opening Endoscopic (ICD-10-PCS; principal; 2018-07-21)
PROC: 0BC98ZZ Extirpation of Matter from Lingula Bronchus, Via Natural or Artificial Opening Endoscopic (ICD-10-PCS; principal; 2018-07-21)
PROC: 0BC68ZZ Extirpation of Matter from Right Lower Lobe Bronchus, Via Natural or Artificial Opening Endoscopic (ICD-10-PCS; principal; 2018-07-21)
DX: J44.1 Chronic obstructive pulmonary disease with (acute) exacerbation (principal); N17.0 Acute kidney failure with tubular necrosis; F33.1 Major depressive disorder, recurrent, moderate; J45.51 Severe persistent asthma with (acute) exacerbation; T17.590A Other foreign object in bronchus causing asphyxiation, initial encounter; R73.9 Hyperglycemia, unspecified; R00.0 Tachycardia, unspecified; E55.9 Vitamin D deficiency, unspecified; F41.1 Generalized anxiety disorder; J20.9 Acute bronchitis, unspecified; J44.0 Chronic obstructive pulmonary disease with (acute) lower respiratory infection; X58.XXXA Exposure to other specified factors, initial encounter; E78.00 Pure hypercholesterolemia, unspecified; F17.210 Nicotine dependence, cigarettes, uncomplicated; Z83.6 Family history of other diseases of the respiratory system; Z80.9 Family history of malignant neoplasm, unspecified; Z84.89 Family history of other specified conditions; Z88.2 Allergy status to sulfonamides; Z79.899 Other long term (current) drug therapy; Y93.89 Activity, other specified; Y92.89 Other specified places as the place of occurrence of the external cause; Y99.8 Other external cause status

== ENCOUNTER 2018-09-13 11:15 | Inpatient (IN) | payer MEDICARE ==
[~2018-09-13] VITALS: Ht 170.1 cm; Wt 74.5 kg
--- NOTE | ~2018-09-13 | O ---
[place], [place] OPERATIVE NOTE NAME: HERBERT MAN [facility] #: [id number] UNIT #: [id number] ROOM: 529 DOCTOR: JEAN CARLOS SOMMERS,ROSIO BIRTHDATE: [birth year] DOS: 09/14/2018 The patient has presented with epigastric distress, persistent nausea, undergone investigation. Consultation has been dictated. PROCEDURE: Today's procedure part of investigation is panendoscopy plus biopsy. PREMEDICATION: Propofol. SCOPE: Olympus forward-viewing gastroscope Q10 video. REPORT: After putting the patient in left lateral position and application of lubricant to the scope, the scope was introduced. Thereafter, under direct visualization, advanced through the length of esophagus without difficulty, hiatal hernia, small in size, 2.6 cm was noticed. Gastritis of mild degree seen. Antral biopsy obtained. Duodenal bulb, second and third part within normal limits. The patient extubated, tolerated the procedure well. IMPRESSION: Hiatal hernia, gastritis. PLAN AND DISCUSSION: I am not convinced that this is the cause of her persistent nausea and resistant to antiemetics. I am going to organize a sonographic study of gallbladder, liver, pancreas and if there is any signals beyond that, we are going to do CT scan of the abdomen and pelvis for further investigations. Workup in progress. Thank you very much indeed for your kind referral. ROSIO EVANGELISTA MD CM:OPRECORD:OPERATIVE NOTE [id number] 1258 ROSIO EVANGELISTA MD 09/14/18 1258 interface
--- NOTE | ~2018-09-13 | EKG ---
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
--- NOTE | ~2018-09-13 | EKG ---
[place], [place] ELECTROCARDIOGRAM REPORT NAME: HERBERT MAN UNIT #: [id number] ROOM: 529 DOCTOR: MILO DRAFT REPORT BIRTHDATE: [birth year] [facility] Test Date: 2018-09-13 Test Time: 18:13:34 Pat Name: HERBERT MAN Department: Room: 529 Gender: F Heel Trimmer: Tammy Morrison : 1945 Requested By: JUAN MIGUEL GOULD Order Number: [id number] Reading MD: Shiva Gunderson MD Measurements Intervals [place] Rate: 95 P: 70 FL: 122 QRS: 18 QRSD: 79 T: 52 QT: 351 QTc: 442 Interpretive Statements Sinus rhythm Low voltage, precordial leads Compared to ECG 07/17/2018 11:27:42 Sinus tachycardia no longer present Electronically Signed On 09-13-2018 17:04:56 PST by Shiva Gunderson MD CM:EKGRPT:ELECTROCARDIOGRAM REPORT [id number] 1704 JUAN MIGUEL PEDRAZA DRAFT REPORT JUAN MIGUEL GOULD MD
--- NOTE | ~2018-09-13 | CON ---
[place], [place] REPORT OF CONSULTATION [id number] UN[facility] #: [id number] ROOM: 529 DOCTOR: PHD YOLANDA CHEVY BIRTHDATE: [birth year] DOS: 09/14/2018 HISTORY OF PRESENT ILLNESS: The patient is a 72-year-old female referred by Maddi Maher due to concerns for anxiety. The patient is presently on the 5th floor at [facility]. 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 She is and has 2 children. She quit smoking 3 weeks ago due to her COPD and denied alcohol and illegal drug use. PAST MEDICAL HISTORY: Acute kidney injury; anxiety; asthma; acute tubular necrosis; COPD; hypercholesterolemia; hyperglycemia; major depression, recurrent; protein-calorie malnutrition, mild; tachycardia; vitamin D deficiency; vitreous floaters to left eye. MEDICATIONS: Cymbalta, Singulair, Lovenox, Zofran, Dulcolax, Tylenol, Ativan. NEUROLOGIC EXAMINATION: The patient was awake, alert and oriented. Mood was anxious and depressed and affect was restricted in range. She endorsed difficulty sleeping due to racing thoughts, fatigue, hopelessness, helplessness, subjective sense of sadness, anhedonia. She endorsed passive suicidal ideation since discontinuing Cymbalta and starting Viibryd. She firmly denied active suicidal ideation, plan or intent. She denied a desire for . Speech and language are within normal limits conversationally. Thought process was linear and goal directed. Thought process was negative for obvious hallucinations or delusions. Insight and judgment were fair. The patient strongly declined inpatient psychiatric treatment. She wants to instead change her medication regimen. She follows up with [facility]. DIAGNOSES: Major depressive disorder, recurrent, unspecified; unspecified anxiety disorder. PLAN: I discussed the case with Dr. Leiva. He recommends discontinuing Viibryd and starting on Tofranil 50 mg at bed for 1 week and then increasing to 100 mg. The patient does not want to pursue inpatient psychiatric treatment at this time. She was encouraged to continue following up as an outpatient for her mental health treatment. She is not currently in counseling and was recommended to start this as well. Followed up with the patient regarding outpatient counseling. She is interested in outpatient therapy. Discussed her anxiety and adjustment to disability issues. Utilized CBT and supportive therapy interventions. The patient appeared to benefit. She will follow up with me on discharge. Thank you very much for this consult. [place], [place] REPORT OF CONSULTATION NAME: HERBERT MAN UNIT #: [id number] ROOM: 529 DOCTOR: YOLANDA, PHD CHEVY BIRTHDATE: [birth year] Chrissy Henderson, PhD CM:CONSTR:REPORT OF CONSULTATION 1135 09/16/18 1824 interface
--- NOTE | ~2018-09-13 | CON ---
[place], [place] REPORT OF CONSULTATION NAME: HERBERT MAN UNIT #: [id number] ROOM: 529 DOCTOR: JEAN CARLOS SOMMERSROSIO BIRTHDATE: [birth year] DOS: 09/14/2018 GASTROENDOSCOPIC REPORT HISTORY OF PRESENT ILLNESS: A 72-year-old patient was presented with persistent nausea, vomiting despite multi antibiotics and ambiguity of the disease is of concern; therefore, we have been consulted for possible endoscopic assessment. GFR is greater than 60. Electrolytes balanced. Chest x-ray, emphysematous changes. Troponin is within normal limits. Latest comprehensive metabolic panel is within normal limits. CBC: H and H of 14 and 45. PAST MEDICAL HISTORY: Associated with borderline obesity, borderline renal insufficiency, COPD, hyperglycemia, protein-calorie malnutrition, ATN, and anxiety. PAST SURGICAL HISTORY: Tonsillectomy. MEDICATIONS: Medication list has been reviewed including Zofran, Phenergan, and inhalers. ALLERGIES: THE PATIENT IS ALLERGIC TO SULFA. SOCIAL HISTORY: Past smoker. Nonalcohol consumer. FAMILY HISTORY: Noncontributory. REVIEW OF SYSTEMS: HEENT: In general, denies double vision, blurred vision. RESPIRATORY: Admits some shortness of breath. CARDIOVASCULAR: Denies chest pain. DIGESTIVE SYSTEM: Persistent nausea sensation. No emesis. PHYSICAL EXAMINATION: VITAL SIGNS: Stable. HEENT: Head is normocephalic, nontraumatic. Mouth and buccal mucosa benign. NECK: Supple. No thyromegaly. No cervical lymphadenopathy. CHEST: Symmetric anatomy, equal expansion. No wheeze. No rhonchi. HEART: Normal sinus rhythm. No gallop. No murmur. ABDOMEN: Soft. No hepato-organomegaly. Bowel sounds present. No pulsatile mass. EXTREMITIES: No cyanosis. No pedal edema. NEUROLOGIC: She is alert, oriented to time, place, and person. Sensory, motor intact. Cranial nerves 2-12 intact. IMPRESSION: Persistent nausea, chronic obstructive pulmonary disease, recent abstinence from nicotine consumption within last month, other adjunctive diagnoses as outlined above. PLAN AND DISCUSSION: I am not convinced as far as the source of pathology for her persistent nausea is concerned. A definitive sonographic study of [place], [place] REPORT OF CONSULTATION NAME: HERBERT MAN UNIT #: [id number] ROOM: 529 DOCTOR: JEAN CARLOS SOMMERS,ROSIO BIRTHDATE: [birth year] gallbladder, liver, pancreatic anatomy is to be considered if negative. CT scan of the abdomen and pelvis has to be without IV contrast; however, with oral contrast to be considered due to nausea persistently. Workup otherwise in progress. EGD today. ROSIO EVANGELISTA MD CM:CONSTR:REPORT OF CONSULTATION 1156 09/14/18 9828 interface
--- NOTE | ~2018-09-13 | EKG ---
[place], [place] ELECTROCARDIOGRAM REPORT NAME: HERBERT MAN UNIT #: [id number] ROOM: 529 DOCTOR: MILO DRAFT REPORT BIRTHDATE: [birth year] [facility] Test Date: 2018-09-13 Test Time: 15:37:15 Pat Name: HERBERT MAN Department: Room: 529 Gender: F Research Professor: Tammy Morrison : 1945 Requested By: JUAN MIGUEL GOULD Order Number: [id number] Reading MD: Shiva Gunderson MD Measurements Intervals [place] Rate: 74 P: 29 MS: 104 QRS: 12 QRSD: 83 T: 44 QT: 404 QTc: 449 Interpretive Statements Sinus rhythm Short MS interval Compared to ECG 07/17/2018 11:27:42 Short MS interval now present Sinus tachycardia no longer present Electronically Signed On 09-13-2018 17:04:28 PST by Shiva Gunderson MD CM:EKGRPT:ELECTROCARDIOGRAM REPORT [id number] JUAN MIGUEL PEDRAZA DRAFT REPORT JUAN MIGUEL GOULD MD
[~2018-09-13 11:15] MED LIST changes: +AVPAK AZITHROM250 MG PO
[2018-09-13 11:17] VITALS: BP 120/94
[2018-09-13 11:42] LABS: BASO # 0.1 10*3/uL (0.0-0.1); BASO % 0.6 % (0.0-1.0); EOS # 0.3 10*3/uL (0.0-0.4); EOS % 2.9 % (1.0-4.0); HEMATOCRIT 44.8 % (37.0-47.0); HEMOGLOBIN 14.7 g/dl (12.0-16.0); LYMPH # 1.7 10*3/uL (1.3-4.4); LYMPH % 16.6 % (27.0-41.0); MEAN CELL VOLUME 93.5 fl (81.0-99.0); MEAN CORPUSCULAR HGB 30.7 pg (27.0-31.0); MEAN CORPUSCULAR HGB CONC 32.8 g/dl (33.0-37.0); MEAN PLATELET VOLUME 9.6 fl (9.6-12.3); MONO # 0.6 10*3/uL (0.1-1.0); MONO % 5.9 % (3.0-9.0); NEUT # 7.4 10*3/uL (2.3-7.9); NEUT % 73.5 % (47.0-73.0); PLATELET COUNT AUTOMATED 325 10*3/uL (130-400); RED BLOOD COUNT 4.79 10*6/uL (4.10-5.10); RED CELL DISTRI WIDTH 13.2 % (0-14.5)
[2018-09-13 11:50] LABS: ACT PARTIAL THROMBO TIME 23.4 SECONDS (20.8-31.5); INTERNATIONAL NORM RATIO 0.9 (2.0-3.5)
[2018-09-13 12:06] LABS: ALBUMIN 3.1 gm/dl (3.1-4.5); ALKALINE PHOSPHATASE 101 U/L (45-117); BUN 12 mg/dl (7-24); CHLORIDE 105 mmol/L (98-107); CREATININE 0.96 mg/dL (0.55-1.02); POTASSIUM 4.1 mmol/L (3.5-5.1); SGOT/AST 42 IU/L (3-35); SGPT/ALT 75 U/L (12-78); SODIUM 137 mmol/L (136-145)
[2018-09-13 12:08] VITALS: BP 104/61
[2018-09-13 12:10] LABS: TROPONIN I < 0.015 ng/ml (<0.045)
[2018-09-13 12:40] VITALS: BP 99/56
[2018-09-13 13:22] VITALS: BP 92/50
--- NOTE | 2018-09-13 14:45 | NUR ---
A 72, admitted to 5E, under the services of SHERRELL Chakraborty DO with a diagnosis of SOB,SINUS TACHYCARDIA. Chief complaint is SHORTNESS OF BREATH. Patient arrived via bed from ER. Monitor applied. Initial assessment completed. Vital signs taken and recorded. SHERRELL CHAKRABORTY DO notified of admission to the unit. Orders received. See assessment for past medical history, medications and allergies. Patient and/or family oriented to unit. [address] visitation policy reviewed. Clothing/patient valuable form completed. MARCELO CROWE
[2018-09-13] MEDS ORDERED: ZOFRAN4 MG PO (15:25)
[2018-09-13 16:00] VITALS: BP 109/75
--- NOTE | 2018-09-13 16:30 | NUR ---
CALLED DR. EVANGELISTA AT THIS TIME TO MAKE AWARE OF CONSULT. STATED HE WILL CALL ME BACK.
--- NOTE | 2018-09-13 16:55 | NUR ---
DR. MERCEDES'S OFFICE CALLED AND MADE AWARE OF NEW CONSULT. NO NEW ORDERS RECIEVED.
[2018-09-13 18:47] LABS: BILIRUBIN NEGATIVE (NEGATIVE); BLOOD NEGATIVE (NEGATIVE); CLARITY CLEAR (CLEAR); COLOR YELLOW (YELLOW); GLUCOSE NEGATIVE (NEGATIVE); KETONE NEGATIVE (NEGATIVE); LEUKO ESTERASE NEGATIVE (NEGATIVE); NITRITE NEGATIVE (NEGATIVE); PH 5.5 (5.0-9.0); SPECIFIC GRAVITY 1.025 (1.005-1.030); UROBILINOGEN 0.2 E.U./dl (0.2-1.0)
[2018-09-13 18:55] LABS: BACTERIA 1+; MUCOUS 1+
--- NOTE | 2018-09-13 19:15 | NUR ---
PT SLEEPING IN BED DURING BEDSIDE SHIFT REPORT. NO S/S OF DISTRESS NOTED. CALL LIGHT IN REACH.
[2018-09-13 20:00] VITALS: BP 111/62
--- NOTE | 2018-09-13 20:05 | NUR ---
PT RESTING QUIETLY IN BED. C/O NAUSEA, NO VOMITING AND INCREASED HUNGER ALL THE TIME. GINGERALE OFFERED AND ACCEPTED. MEDICATED W/ZOFRAN AT THIS TIME. CALL LIGHT IN REACH. WILL MONITOR FOR EFFECTIVENESS.
--- NOTE | 2018-09-13 21:00 | NUR ---
PT STATES THAT PRN ZOFRAN WAS EFFECTIVE FOR NAUSEA.
[2018-09-14] VITALS (7 sets, daily range): BP systolic 104–115; BP diastolic 43–67
[2018-09-14 06:35] LABS: BASO # 0.1 10*3/uL (0.0-0.1); BASO % 0.6 % (0.0-1.0); EOS # 0.8 10*3/uL (0.0-0.4); EOS % 8.6 % (1.0-4.0); HEMATOCRIT 45.4 % (37.0-47.0); HEMOGLOBIN 14.9 g/dl (12.0-16.0); LYMPH # 2.5 10*3/uL (1.3-4.4); LYMPH % 26.6 % (27.0-41.0); MEAN CELL VOLUME 95.2 fl (81.0-99.0); MEAN CORPUSCULAR HGB 31.2 pg (27.0-31.0); MEAN CORPUSCULAR HGB CONC 32.8 g/dl (33.0-37.0); MEAN PLATELET VOLUME 9.9 fl (9.6-12.3); MONO # 0.7 10*3/uL (0.1-1.0); MONO % 7.7 % (3.0-9.0); NEUT # 5.3 10*3/uL (2.3-7.9); NEUT % 55.8 % (47.0-73.0); PLATELET COUNT AUTOMATED 360 10*3/uL (130-400); RED BLOOD COUNT 4.77 10*6/uL (4.10-5.10); RED CELL DISTRI WIDTH 13.3 % (0-14.5); WHITE BLOOD COUNT 9.5 10*3/uL (4.8-10.8)
[2018-09-14 06:56] LABS: ALBUMIN 3.1 gm/dl (3.1-4.5); CREATININE 1.18 mg/dL (0.55-1.02); PHOSPHOROUS 4.6 mg/dL (2.5-4.9); POTASSIUM 4.3 mmol/L (3.5-5.1); TOTAL PROTEIN 7.1 gm/dL (6.4-8.2)
--- NOTE | 2018-09-14 06:58 | NUR ---
PT MEDICATED W/ZOFRAN IVP FOR C/O NAUSEA. PT WASHED UP IN BR AND NOW BACK IN BED AT THIS TIME.
--- NOTE | 2018-09-14 09:00 | NUR ---
Gate Guard in to talk to patient. Patient states lives at home alone with her 2 sons and [id number] checking in on her. There are 28 steps in the home. Physician: Dr. Yissel Dale Pharmacy: [facility] Home health services: none presently but she has had [facility] previously and would like to use them if services are needed Patient's level of ADLs: INDEPENDENT Patient has working utilities: yes DME: nebulizer Follow-up physician's appointment after d/c: will be made by the hospitalist nurse director upon discharge Does patient want to access PORTAL?: no Discharge plan discussed with patient. She lives at home alone with her 2 sons and [id number] checking in on her. She is independent in her ADLs and ambulation. Discussed home health care services and she denies any home needs at this time. When medically stable she will be discharged to home. Her family will transport. LARRY SANDOVAL
--- NOTE | 2018-09-14 16:15 | NUR ---
Ativan was given at non scheduled time. Patient was NPO this morning. Patient stated "I fell asleep and when I woke up I was very anxious!" Patient called nurses station and requested Ativan. She was also visably irritated, teary, and anxious. Will monitor.
--- NOTE | 2018-09-14 16:55 | NUR ---
Ativan effective. Patient is more comfortable and anxiety is more manageable.
--- NOTE | 2018-09-14 19:00 | NUR ---
Contacted Dr. Tran for permission for patient to remove threat monitoring analyst so she may shower. Per physician. It should be fine. See message.
--- NOTE | 2018-09-14 21:41 | NUR ---
PATIENT MEDICATED WITH RESTORIL FOR COMPLAINTS OF INSOMNIA. WILL MONITOR FOR EFFECTIVENESS. PATIENT ALSO STATED SHE FELT MUCH BETTER SINCE SHE GOT A SHOWER. BUTTON STATION WORKER REAPPLIED. WILL CONTINUE TO MONITOR.
[2018-09-15] VITALS: BP 106/43
--- NOTE | 2018-09-15 00:10 | NUR ---
24 HR chart check completed.
[2018-09-15 08:00] VITALS: BP 102/56
--- NOTE | 2018-09-15 09:00 | NUR ---
Comfort Advisor in to see patient. No new needs or request at this time. She is unsure of any home needs at this time. When medically stable she will be discharged to home.
--- NOTE | 2018-09-15 09:23 | NUR ---
PT C/O NAUSEA. ZOFRAN GIVEN AT THIS TIME. WILL MONITOR FOR EFFECTIVENESS. CALL LIGHT IN REACH.
--- NOTE | 2018-09-15 10:23 | NUR ---
ZOFRAN EFFECTIVE PER PT.
[2018-09-15 12:00] VITALS: BP 124/66
--- NOTE | 2018-09-15 12:00 | NUR ---
SPOKE WITH RODRIGO BALLARD NP REGARDING PT ATIVAN FREQUENCY. PT STATES THAT SHE TAKES MEDICATION THREE TIMES A DAY INSTEAD OF ONE TIME A DAY. CHANGES MADE TO MED REC. PT AWARE OF CHANGES.
--- NOTE | 2018-09-15 14:02 | NUR ---
CALLED 6TH FLOOR TO HAVE RADHA GUERRERO COME BACK TO TALK WITH PT PER RODRIGO BALLARD REQUEST. THEY WILL TELL HER
--- NOTE | 2018-09-15 14:30 | NUR ---
PHYSICAL THERAPY Patient evaluated on 5, full evaluation to follow. Continue with PT as per plan of care with fall and acute debility precautions. Home with home health RN and PT prn. PAtient is moderate complexity via chart review, tests and evaluation: 48221. Thank you for this referral. Stacey Alaniz,PT
[2018-09-15 16:00] VITALS: BP 114/57
--- NOTE | 2018-09-15 18:21 | NUR ---
PT UP WALKING THROUGHOUT HALLS, ALERT ORIENTED AND PLEASANT MOOD. NO COMPLAINTS VOICED AT THIS TIME.
[2018-09-15 20:00] VITALS: BP 115/67
--- NOTE | 2018-09-15 20:06 | NUR ---
24 HR chart check completed.
--- NOTE | 2018-09-15 20:30 | NUR ---
AMBULATING HALLWAY WITH NO DISTRESS NOTED. RESPIRATIONS EASY. NO VOICED COMPLAINTS
--- NOTE | 2018-09-15 21:00 | NUR ---
SITTING IN RECLINER COLORING, NO DISTRESS NOTED. RESPIRATIONS EASY. LUNGS DIMINISHED, CLEAR. PULSE OX 94% RA. TRACE BLE EDEMA. OFFERED AND EDUCATED REGARDING TEDS, DECLINED. CALL LIGHT WITHIN REACH. NO VOICED COMPLAINTS
[2018-09-16] VITALS: BP 102/51
--- NOTE | 2018-09-16 00:30 | NUR ---
RESTING IN BED. NO ACUTE DISTRESS NOTED. RESPIRATIONS EASY. VSS. CALL LIGHT WITHIN REACH
--- NOTE | 2018-09-16 02:00 | NUR ---
SLEEPING. NO DISTRESS NOTED. RESPIRATIONS EASY. CALL LIGHT WITHIN REACH
--- NOTE | 2018-09-16 06:00 | NUR ---
SLEPT THROUGHOUT NIGHT WITH NO DISTRESS NOTED. RESPIRATIONS EASY. VSS. CALL LIGHT WITHIN REACH. NO VOICED COMPLAINTS THIS SHIFT
--- NOTE | 2018-09-16 08:05 | NUR ---
PHYSICAL THERAPY Patient was resting comfortably in bed this am when approached for therapy visit and stated she did not sleep well last night, requesting to be seen this afternonn. Will continue per POC as tolerted. Haris Llanes, SHAKER WASHER
--- NOTE | 2018-09-16 09:00 | NUR ---
Business Services Vice President in to see patient. Discussed home health care services and she is agreeable. She would like [facility] as she has had them in the past. Hospitalist nurse director notified. When medically stable she will be discharged to home with [facility] services.
[2018-09-16 09:10] VITALS: BP 112/70
--- NOTE | 2018-09-16 09:24 | NUR ---
PT C/O OF ANXIETY AND STATES THAT IT IS WORSENED AT THIS TIME. ASSESSMENT COMPLETE AND NO OTHER S/S OF DISTRESS NOTED. PT COOPERATIVE BUT NOT TALKATIVE THIS MORNING. WILL NOTIFY PHYSICIAN OF PT ANXIETY. PT RESTING IN BED, RESPIRATIONS EASY AND UNLABORED ON ROOM AIR. BLOOD PRESSURE WNL. CALL LIGHT IN REACH.
--- NOTE | 2018-09-16 09:26 | NUR ---
SPOKE WITH RODRIGO BALLARD NP AND NEW ORDERS RECEIVED FOR ONE TIME DOSE OF 0.5 MG ATIVAN PO NOW. WILL MEDICATE PT WHEN MEDICATION VERIFIED BY PHARMACY.
--- NOTE | 2018-09-16 09:36 | NUR ---
ATIVAN 0.5 MG TABLET PO GIVEN AT THIS TIME. WILL MONITOR FOR EFFECTIVENESS. PT RESTING IN BED, CALL LIGHT IN REACH.
[2018-09-16] MEDS ORDERED: VISTARIL25 MG PO (10:01)
[2018-09-16] MEDS ORDERED: IMIPRAMINE HCL50 MG PO (10:01)
--- NOTE | 2018-09-16 10:36 | NUR ---
ATIVAN EFFECTIVE PER PT.
--- NOTE | 2018-09-16 10:53 | NUR ---
Faxed home health referral to [facility]
--- NOTE | 2018-09-16 11:40 | NUR ---
Discharge instructions reviewed with patient/family. Patient receptive and verbalizes understanding. Follow-up care arranged. Written instructions given to patient/family. MARQUITA HOSKINS
--- NOTE | 2018-09-16 14:56 | NUR ---
PHYSICAL THERAPY CO-SIGN I approve of the Phyical Therapy notes written above. JASKARAN GARCIA PT
--- NOTE | 2018-09-16 15:02 | NUR ---
Asha from [facility] called and stated they are unable to take patient for home health services as they are not contracted with her insurance. Faxed home health service referral to [facility].
[2018-12-06] MEDS ORDERED: PYRIDIUM200 M1 PO (13:49)
[2018-12-06] MEDS ORDERED: AMINOPHYLLIN200 MG PO (13:49)
[2018-12-13] MEDS ORDERED: 'CLONIDINE0.1 MG PO (14:44)
[2018-12-13] MEDS ORDERED: BUSPAR15 MG PO (14:45)
[2018-12-13] MEDS ORDERED: FLUOXETINE HYDR20 M1 PO (14:46)
[2018-12-13] MEDS ORDERED: ATORVASTATIN CA20 M1 PO (14:46)
[2018-12-15] MEDS ORDERED: PREDNISONE10 MG PO (13:27)
[2018-12-15] MEDS ORDERED: VISTARIL25 MG PO (14:41)
[2018-12-15] MEDS ORDERED: ONCE DAILY1 EACH PO (15:35)
[2018-12-15] MEDS ORDERED: B COMPLEX1 EACH PO (15:35)
[2018-12-15] MEDS ORDERED: VITAMIN D5000 UNIT PO (15:36)
[2018-12-29] MEDS ORDERED: FLUVOXAMINE50 MG PO (10:18)
[2018-12-29] MEDS ORDERED: LORAZEPAM0.5 MG PO (10:18)
[2018-12-29] MEDS ORDERED: BUDEPRION XL150 MG PO (10:18)
[2018-12-29] MEDS ORDERED: LORAZEPAM1 MG PO (10:18)
[2019-01-05] MEDS ORDERED: WELLBUTRIN XL300 MG PO (14:17)
[2019-01-05] MEDS ORDERED: SINGULAIR10 M1 PO (14:27)
[2019-01-05] MEDS ORDERED: PROAIR HFA8.5 GM INH (14:27)
[2019-01-05] MEDS ORDERED: STIOLTO RESPIMAT4 GM INH (14:28)
[2019-01-05] MEDS ORDERED: ALBUTEROL2.5 MG/0.5 INH (14:30)
[2019-01-05] MEDS ORDERED: ONE-DAILY MULT1 EAC1 PO (14:30)
[2019-01-05] MEDS ORDERED: LIPITOR20 MG PO (14:30)
[2019-01-05] MEDS ORDERED: VITAMIN D35000 UNIT PO (14:31)
[2019-01-05] MEDS ORDERED: B COMPLEX1 EACH PO (14:31)
[2019-01-11] MEDS ORDERED: LORAZEPAM0.5 MG PO (08:41)
[2019-01-11] MEDS ORDERED: LORAZEPAM1 MG PO (08:41)
[2019-01-11] MEDS ORDERED: LATU20TA PO (08:41)
[2019-01-11] MEDS ORDERED: BUDEPRION XL150 MG PO (08:41)
[2019-01-11] MEDS ORDERED: NORTRIPTYLINE H50 M1 PO (08:41)
[2019-01-11] MEDS ORDERED: ROPINIROLE HY0.25 MG PO (12:21)
== END 2018-09-16 11:40 | disposition home or self-care (01) | DRG 880 ==
LOC: ED 11:15 → 5E 14:08 → EDHOLD 14:08 → 5E 14:29
PROVIDERS: Emergency Medicine; Registered Nurse; Student in an Organized Health Care Education/Training Program; ADMIT Internal Medicine
PROC: 0DB78ZX Excision of Stomach, Pylorus, Via Natural or Artificial Opening Endoscopic, Diagnostic (ICD-10-PCS; principal; 2018-09-14)
DX: F41.9 Anxiety disorder, unspecified (principal); K29.71 Gastritis, unspecified, with bleeding; E44.1 Mild protein-calorie malnutrition; F33.9 Major depressive disorder, recurrent, unspecified; K44.9 Diaphragmatic hernia without obstruction or gangrene; F17.210 Nicotine dependence, cigarettes, uncomplicated; E78.00 Pure hypercholesterolemia, unspecified; R00.0 Tachycardia, unspecified; J43.9 Emphysema, unspecified; R74.0 Nonspecific elevation of levels of transaminase and lactic acid dehydrogenase [LDH]; R73.9 Hyperglycemia, unspecified; Z60.2 Problems related to living alone; Z88.2 Allergy status to sulfonamides; Z80.9 Family history of malignant neoplasm, unspecified; Z82.5 Family history of asthma and other chronic lower respiratory diseases; Z81.8 Family history of other mental and behavioral disorders; Z79.899 Other long term (current) drug therapy; Z68.25 Body mass index [BMI] 25.0-25.9, adult

== ENCOUNTER 2019-03-21 20:11 | Inpatient (IN) | payer MEDICARE ==
[~2019-03-21] VITALS: Ht 157.4 cm; Wt 75.7 kg
[~2019-03-21 20:11] MED LIST changes: +'CLONIDINE0.1 MG PO; +AMINOPHYLLIN200 MG PO; +B COMPLEX1 EACH PO; +BUDEPRION XL150 MG PO; +BUSPAR15 MG PO; +FLUOXETINE HYDR20 M1 PO; +FLUVOXAMINE50 MG PO; +IMIPRAMINE HCL50 MG PO; +LATU20TA PO; +LIPITOR20 MG PO; +LORAZEPAM1 MG PO; +NORTRIPTYLINE H50 M1 PO; +ONCE DAILY1 EACH PO; +ONE-DAILY MULT1 EAC1 PO; +ROPINIROLE HY0.25 MG PO; +SINGULAIR10 M1 PO; +VISTARIL25 MG PO; +VITAMIN D35000 UNIT PO; +VITAMIN D5000 UNIT PO; +WELLBUTRIN XL300 MG PO; +ZOFRAN4 MG PO
[2019-03-21 20:12] VITALS: BP 122/74
[2019-03-21 20:38] LABS: BASO % 0.4 % (0.0-1.0); EOS # 1.5 10*3/uL (0.0-0.4); EOS % 14.1 % (1.0-4.0); HEMATOCRIT 43.4 % (37.0-47.0); HEMOGLOBIN 14.3 g/dl (12.0-16.0); LYMPH # 2.2 10*3/uL (1.3-4.4); LYMPH % 21.3 % (27.0-41.0); MEAN CELL VOLUME 91.8 fl (81.0-99.0); MEAN CORPUSCULAR HGB 30.2 pg (27.0-31.0); MEAN CORPUSCULAR HGB CONC 32.9 g/dl (33.0-37.0); MEAN PLATELET VOLUME 9.8 fl (9.6-12.3); MONO # 0.7 10*3/uL (0.1-1.0); MONO % 6.9 % (3.0-9.0); NEUT # 5.9 10*3/uL (2.3-7.9); NEUT % 56.6 % (47.0-73.0); PLATELET COUNT AUTOMATED 259 10*3/uL (130-400); RED BLOOD COUNT 4.73 10*6/uL (4.10-5.10); RED CELL DISTRI WIDTH 13.3 % (0-14.5); WHITE BLOOD COUNT 10.5 10*3/uL (4.8-10.8)
[2019-03-21 20:50] LABS: ACT PARTIAL THROMBO TIME 24.1 SECONDS (20.0-32.1); INTERNATIONAL NORM RATIO 0.9 (2.0-3.5)
[2019-03-21 20:57] LABS: ALBUMIN 3.2 gm/dl (3.1-4.5); ALKALINE PHOSPHATASE 92 U/L (45-117); BUN 16 mg/dl (7-24); CHLORIDE 107 mmol/L (98-107); SGOT/AST 13 IU/L (3-35); SGPT/ALT 26 U/L (12-78); SODIUM 138 mmol/L (136-145); TOTAL PROTEIN 6.7 gm/dL (6.4-8.2); TROPONIN I < 0.015 ng/ml (<0.045)
[2019-03-21 22:00] VITALS: BP 120/78
--- NOTE | 2019-03-21 23:09 | NUR ---
PT PLACED ON 2L NC FOR COMFORT
[2019-03-22] VITALS (7 sets, daily range): BP systolic 118–136; BP diastolic 64–80
[2019-03-22 02:17] LABS: BASO % 0.4 % (0.0-1.0); EOS # 1.3 10*3/uL (0.0-0.4); EOS % 12.5 % (1.0-4.0); HEMATOCRIT 42.1 % (37.0-47.0); HEMOGLOBIN 13.5 g/dl (12.0-16.0); LYMPH # 2.4 10*3/uL (1.3-4.4); LYMPH % 23.8 % (27.0-41.0); MEAN CELL VOLUME 92.5 fl (81.0-99.0); MEAN CORPUSCULAR HGB 29.7 pg (27.0-31.0); MEAN CORPUSCULAR HGB CONC 32.1 g/dl (33.0-37.0); MEAN PLATELET VOLUME 9.8 fl (9.6-12.3); MONO # 0.7 10*3/uL (0.1-1.0); MONO % 6.7 % (3.0-9.0); NEUT # 5.8 10*3/uL (2.3-7.9); PLATELET COUNT AUTOMATED 245 10*3/uL (130-400); RED BLOOD COUNT 4.55 10*6/uL (4.10-5.10); RED CELL DISTRI WIDTH 13.4 % (0-14.5); WHITE BLOOD COUNT 10.3 10*3/uL (4.8-10.8)
[2019-03-22 02:32] LABS: ALBUMIN 2.9 gm/dl (3.1-4.5); CREATININE 1.1 mg/dL (0.55-1.02); PHOSPHOROUS 3.3 mg/dL (2.5-4.9); POTASSIUM 4.5 mmol/L (3.5-5.1); TOTAL PROTEIN 6.1 gm/dL (6.4-8.2)
[2019-03-22 02:37] LABS: THYROID STIM HORMONE (HS) 2.02 uIU/ml (0.358-4.75)
--- NOTE | 2019-03-22 02:43 | NUR ---
A 73, admitted to , under the services of INOCENCIO Rainey DO with a diagnosis of CHEST PAIN. Chief complaint is CHEST PAIN. Patient arrived via stretcher from ER. Monitor applied. Initial assessment completed. Vital signs taken and recorded. INOCENCIO RAINEY DO notified of admission to the unit. Orders received. See assessment for past medical history, medications and allergies. Patient and/or family oriented to unit. [facility] Clothing/patient valuable form completed. BLAKE NARVAEZ
--- NOTE | 2019-03-22 02:46 | NUR ---
PATIENT NOT ON OXYGEN WHEN ARRIVAL TO THE FLOOR
[2019-03-22] MEDS ORDERED: LORAZEPAM0.5 MG PO (03:00)
[2019-03-22] MEDS ORDERED: NORTRIPTYLINE H25 M1 PO (03:02)
--- NOTE | 2019-03-22 03:26 | NUR ---
DR BRAGA AWARE OF MED REC BEING COMPLETE. ALSO MADE AWARE THAT 0045 SOLUMEDROL NOT GIVEN DUE TO PATIENT BEING BROUGHT TO THE FLOOR AT 0300. STATES TO GIVE IT NOW.
--- NOTE | 2019-03-22 09:00 | NUR ---
Editor Book in to talk to patient. Patient states lives at home with son. There are few steps in the home. Physician: primitivo sanford Pharmacy: [facility] health services: none Patient's level of ADLs: INDEPENDENT Patient has working utilities: all working DME: none Follow-up physician's appointment after d/c: will be made by hospitalist nurse director upon discharge Does patient want to access PORTAL?: no Discharge plan discussed with patient, patient lives at home with son, she states she is independent in adls and ambulation, drives, she states she will be returning home when medically stable and denies any home needs. NEO JOYCE
--- NOTE | 2019-03-22 10:18 | NUR ---
PT GIVEN IV ZOFRAN PER PRN ORDER FOR C/O NAUSEA. WILL MONITOR EFFECTIVENESS.
--- NOTE | 2019-03-22 10:27 | NUR ---
'S OFFICE NOTIFIED OF CONSULT.
--- NOTE | 2019-03-22 10:27 | NUR ---
SINCE PATIENT HAD BREAKFAST THIS AM, CT PREP WILL BE INITATED AT NOON.
--- NOTE | 2019-03-22 11:10 | NUR ---
ZOFRAN EFFECTIVE PER PT.
--- NOTE | 2019-03-22 11:15 | NUR ---
IN TO SEE PATIENT REGARDING CONSULT.
--- NOTE | 2019-03-22 12:00 | NUR ---
CT PREP INITIATED AT THIS TIME.
--- NOTE | 2019-03-22 13:47 | NUR ---
PATIENT TAKEN OFF FLOOR FOR SCHEDULED CT.
--- NOTE | 2019-03-22 14:08 | NUR ---
PT RETURNED FROM SCHEDULED CT.
--- NOTE | 2019-03-22 17:50 | NUR ---
PT C/O INDIGESTION. NOTIFIED.
--- NOTE | 2019-03-22 21:26 | NUR ---
PT STATES SHE TAKES 2 0.5 MG TABS OF ATIVAN AT HS, STATES SHE DID NOT SLEEP LAST NIGHT SHE ONLY HAD ONE TAB. ORDER RECEIVED TO CHANGE DOSE TO 2 0.5MG TABS AT HS.
--- NOTE | 2019-03-22 23:30 | NUR ---
RESTING IN BED; VOICES NO C/O AT THIS TIME. HEP LOCK INTACT TO LEFT HAND. PT. VOICES NO C/O PAIN OR DISCOMFORT AT THIS TIME. CALL LIGHT WITHIN REACH.
[2019-03-23] VITALS: BP 106/49; BP 137/57
--- NOTE | 2019-03-23 04:00 | NUR ---
RESTING IN BED WITH EYES CLOSED. BED IN LOW POSITION & CALL LIGHT REMAINS WITHIN REACH. NPO FOR STRESS TEST THIS A.M.
--- NOTE | 2019-03-23 06:00 | NUR ---
UP TO TAKE A BATH. VOICES NO C/O AT THIS TIME.
[2019-03-23 06:43] LABS: HEMATOCRIT 44.4 % (37.0-47.0); MEAN CELL VOLUME 93.7 fl (81.0-99.0); MEAN CORPUSCULAR HGB 29.5 pg (27.0-31.0); MEAN CORPUSCULAR HGB CONC 31.5 g/dl (33.0-37.0); MEAN PLATELET VOLUME 10.3 fl (9.6-12.3); PLATELET COUNT AUTOMATED 283 10*3/uL (130-400); RED BLOOD COUNT 4.74 10*6/uL (4.10-5.10); RED CELL DISTRI WIDTH 13.3 % (0-14.5); WHITE BLOOD COUNT 11.6 10*3/uL (4.8-10.8)
[2019-03-23 07:15] LABS: PLATELET SUFFICIENCY NORMAL (NORMAL); TOTAL CELLS COUNTED 100 #CELLS
[2019-03-23 07:24] LABS: POTASSIUM 3.6 mmol/L (3.5-5.1)
[2019-03-23 07:30] LABS: CREATININE 1.12 mg/dL (0.55-1.02)
--- NOTE | 2019-03-23 09:00 | NUR ---
PATIENT TAKEN OFF FLOOR FOR SCHEDULED STRESS TEST.
--- NOTE | 2019-03-23 09:45 | NUR ---
INFORMED CONSENT OBTAINED FOR EXERCISE CARDIOLITE STRESS TEST. RESTING EKG NSR TO SINUS TACHYCARDIA. SUPINE HR 92 WITH BP OF 132/72 AND HR OF 128 WITH BP OF 110/78 IN STANDING POSITION. PT COMPLETED 3:00 OF A SHOSHANA PROTOCOL WITH COMPLETION OF STAGE I AT 1.7 MPH AND 10% GRADE. REACHED A PEAK HR OF 156 WHICH IS 105% OF PREDICTED MAX WITH A PEAK BP OF 128/62. HAD NO CHEST PAIN OR ANY EKG CHANGES. TEST TERMINATED BECAUSE OF FATIGUE AND SHORTNESS OF BREATH. HAS A FAIR EXERCISE TOLERANCE. LAST RECOVERY HR AT 6:00 RECOVERY 132 WITH BP OF 124/68. TO NUCLEAR MEDICINE IN STABLE CONDITION FOR SCANNING.
--- NOTE | 2019-03-23 10:37 | NUR ---
PATIENT RETURNED TO ROOM.
--- NOTE | 2019-03-23 11:29 | NUR ---
NOTIFIED REGARDING PATIENT C/O ANXIETY. AWAITING PHYSICIAN ORDERS.
[2019-03-23 12:00] VITALS: BP 119/61
--- NOTE | 2019-03-23 12:09 | NUR ---
PT GIVEN PO ATIVAN 0.5MG PER ORDER FOR C/O INCREASED ANXIETY. WILL MONITOR EFFECTIVENESS.
--- NOTE | 2019-03-23 13:22 | NUR ---
PATIENT SLEEPING QUIETLY IN BED. ATIVAN APPEARS EFFECTIVE AT THIS TIME. WILL CONTINUE TO MONITOR.
[2019-03-23] MEDS ORDERED: PROTONIX40 MG PO (16:42)
[2019-03-23] MEDS ORDERED: CALCIUM 600 +1 EA11 PO (16:42)
[2019-03-23] MEDS ORDERED: DOXYCYCLINE100 M3 PO (16:42)
[2019-03-23] MEDS ORDERED: PREDNISONE10 MG PO (16:42)
--- NOTE | 2019-03-23 17:22 | NUR ---
Discharge instructions reviewed with patient/family. Patient receptive and verbalizes understanding. Follow-up care arranged. Written instructions given to patient/family. BRITTANY ZAMARRIPA.
== END 2019-03-23 18:27 | disposition home or self-care (01) | DRG 206 ==
LOC: ED 20:11 → EDHOLD 03-22 00:38 → 4E 03-22 00:38
PROVIDERS: Emergency Medicine; Internal Medicine; Student in an Organized Health Care Education/Training Program; ADMIT Internal Medicine
DX: M94.0 Chondrocostal junction syndrome [Tietze] (principal); F33.9 Major depressive disorder, recurrent, unspecified; R13.10 Dysphagia, unspecified; F41.9 Anxiety disorder, unspecified; N18.3 Chronic kidney disease, stage 3 (moderate); E78.00 Pure hypercholesterolemia, unspecified; K21.9 Gastro-esophageal reflux disease without esophagitis; D72.1 Eosinophilia; D72.810 Lymphocytopenia; R00.0 Tachycardia, unspecified; J45.909 Unspecified asthma, uncomplicated; E55.9 Vitamin D deficiency, unspecified; J43.9 Emphysema, unspecified; F41.0 Panic disorder [episodic paroxysmal anxiety]; F34.1 Dysthymic disorder; G25.81 Restless legs syndrome; Z66 Do not resuscitate; Z51.5 Encounter for palliative care; Z90.89 Acquired absence of other organs; Z83.6 Family history of other diseases of the respiratory system; Z87.891 Personal history of nicotine dependence; Z81.2 Family history of tobacco abuse and dependence; Z88.2 Allergy status to sulfonamides; Z79.899 Other long term (current) drug therapy; Z80.8 Family history of malignant neoplasm of other organs or systems; Z81.8 Family history of other mental and behavioral disorders

== ENCOUNTER 2019-04-13 16:39 | Inpatient (IN) | payer MEDICARE ==
[~2019-04-13] VITALS: Ht 157.4 cm; Wt 75.9 kg
--- NOTE | ~2019-04-13 | EKG ---
[place], [place] ELECTROCARDIOGRAM REPORT NAME: HERBERT MAN UNIT #: [id number] ROOM: 518 DOCTOR: MILO DRAFT REPORT BIRTHDATE: [birth year] [facility] Test Date: 2019-04-13 Test Time: 20:00:19 Pat Name: HERBERT MAN Department: Room: 518 Gender: F Bottomer Operator: : 1945 Requested By: MALIKA KEEN Order Number: [id number] Reading MD: Shiva Gunderson MD Measurements Intervals [place] Rate: 93 P: 70 TN: 137 QRS: -12 QRSD: 91 T: 58 QT: 393 QTc: 489 Interpretive Statements Sinus rhythm Low voltage, precordial leads and extremity leads Borderline prolonged QT interval Compared to ECG 03/22/2019 02:49:52 Sinus tachycardia no longer present Electronically Signed On 04-14-2019 6:01:40 PDT by Shiva Gunderson MD CM:EKGRPT:ELECTROCARDIOGRAM REPORT 99 0 MALIKA PEDRAZA DRAFT REPORT MALIKA KEEN M.D.
--- NOTE | ~2019-04-13 | CON ---
[place], [place] REPORT OF CONSULTATION NAME: HERBERT MAN [facility] #: [id number] UNIT #: [id number] ROOM: 518 DOCTOR: DEBORAH DAMIAN MD BIRTHDATE: [birth year] DOS: 04/14/2019 PULMONARY CONSULTATION, EVALUATION, AND MANAGEMENT CONSULTATION REQUESTED BY: The hospitalist. REASON FOR CONSULTATION: For assessment of current acute exacerbation of COPD/bronchial asthma. HISTORY OF PRESENT ILLNESS: This is a 73-year-old white female patient who has been known to me. The patient has been brought to the hospital. In the Emergency Room, the patient has been reporting increased respiratory symptoms, which has been occurring for about a couple of days prior to arrival in the hospital. Symptoms of shortness of breath noted with increased chest congestion and some cough. The patient denies symptoms of fever or chills with current symptoms. She has been using her home medication, which includes nebulized treatment, noted ineffective for resolution of the symptoms. She has been currently admitted to the hospital and managed for the medical management of acute exacerbation of COPD/bronchial asthma. REVIEW OF SYSTEMS: CONSTITUTIONAL SYMPTOMS: Fatigue and tiredness reported. Denies symptoms of fever or chills. EYES: Denies burning, redness, or tenderness. EARS, NOSE, THROAT SYMPTOMS: Denies sore throat, hoarseness, otalgia, postnasal drainage, or epistaxis. CARDIOVASCULAR SYSTEM: Denies angina pain, edema, or pain of the lower extremities. GASTROINTESTINAL SYMPTOMS: Denies dysphagia, nausea, vomiting, diarrhea, abdominal pain, hematemesis, melena, or hematochezia. SKIN: Denies abnormal lesions or rashes. CENTRAL NERVOUS SYSTEM: No dizziness, headache, diplopia, syncopal episodes. Remaining systems were reviewed with the patient, they were noted all negative. PAST MEDICAL HISTORY: 1. Noted with history of uncomplicated severe persistent bronchial asthma, allergic phenotype, receiving Fasenra injection, resulting in marked reduction in improvement in the respiratory symptoms and exacerbations for the last few months. 2. COPD. 3. Nicotine dependence. 4. Major depression. 5. General anxiety disorder. PAST SURGICAL HISTORY: 1. Therapeutic bronchoscopy. 2. Tonsillectomy. SOCIAL HISTORY: The patient is , has 2 children, lives at home. [place], [place] REPORT OF CONSULTATION [facility]: [id number] UN[facility] #: [id number] ROOM: 518 DOCTOR: JAVAD WALKER MD,DEBORAH BIRTHDATE: [birth year] Tobacco use noted early teens a pack of cigarettes per day. FAMILY HISTORY: Both parents have been . CURRENT MEDICATIONS: Administered this hospitalization were recorded as Protonix, vitamin D, nortriptyline, Lovenox for DVT prophylaxis, Singulair, Solu-Medrol 40 mg IV b.i.d., Mucinex 1200 mg p.o. b.i.d., DuoNeb q.4 hours, Zithromax, IV Rocephin, and some other p.r.n. meds. DRUG ALLERGIES: NOTED ALLERGY TO SULFA DRUGS, CAUSING SWELLING OF THE BODY. PHYSICAL EXAMINATION: GENERAL: A 73-year-old female patient currently comfortably resting in the bed this morning of assessment. Height 5 feet 2 inches, weight 167 pounds, BMI 30.6. VITAL SIGNS: The patient has a normal temperature, respiratory rate 18-20, heart rate of 81-105, blood pressure 105/53-110/57. HEENT: Examination shows head was atraumatic. Eyes nonicterus. NECK: Supple. CARDIOVASCULAR SYSTEM: S1, S2 audible. LUNGS: The patient was noted with expiratory wheezing, which is noted mild at the present time with moderate general reduction in the breath sounds bilaterally. There were no crackles. ABDOMEN: Soft, flat, nontender. Bowel sounds present. EXTREMITIES: Without edema, clubbing or cyanosis. MUSCULOSKELETAL: Noted without any acute deformities. CENTRAL NERVOUS SYSTEM: Noted without any gross focal neurologic deficit. LABORATORY DATA: CBC on 04/13/2019; WBC count 5.9, hemoglobin and hematocrit normal, platelet count normal, 0% eosinophils. PT/PTT yesterday was noted as normal. CMP that was done yesterday; BUN 14, creatinine 1.12. Remaining CMP normal. Troponin 2 other cycles were done, normal yesterday. PT/PTT repeated again this morning normal. CMP this morning; BUN 15, creatinine 1.11. CBC this morning, remains normal CBC. Chest x-ray, 1 view, which was done on 04/13/2019 was noted severe hyperinflation of the lungs without any acute pulmonary infiltrates. IMPRESSION: 1. The patient who has been currently admitted to the hospital was noted with recurrence of acute exacerbation of chronic obstructive pulmonary disease with history of intermittent tobacco use. 2. The patient with history of uncomplicated severe persistent bronchial asthma with marked reduction in symptoms, noted improvement of frequent exacerbation in the past few months with use of Fasenra injection. PLAN OF MANAGEMENT: Continue current dose of corticosteroids. Obtain a chest x-ray to assess tomorrow to exclude any pulmonary infiltration, PA and lateral view that was done tomorrow morning. Other therapy, plan of management. Additional treatment changes will be made based on progression of the illness. She has been noted with minimal sputum expectoration, mostly noted dry cough [place], [place] REPORT OF CONSULTATION NAME: HERBERT MAN UNIT #: [id number] ROOM: 518 DOCTOR: DEBORAH DAMIAN MD BIRTHDATE: [birth year] continuously with mucus expectoration. If the patient does expectorate sputum, certainly cultures will be taken and sent to the lab. DEBORAH FARNSWORTH MD CM:CONSTR:REPORT OF CONSULTATION 1418 04/15/19 0142 interface
--- NOTE | ~2019-04-13 | PR ---
[place], [place] PROGRESS NOTE NAME: HERBERT MAN [facility] #: [id number] UNIT #: [id number] ROOM: 518 DOCTOR: JAVAD WALKER MD,DEBORAH BIRTHDATE: [birth year] DOS: 04/16/2019 SUBJECTIVE: She has been noted further reduction and improvement in respiratory symptoms. The coughing and wheezing, and other respiratory symptoms, which were noted abnormal on admission has improved significantly. There were no symptoms of chest pain, stated by the patient. OBJECTIVE: VITAL SIGNS: For the patient which were recorded showed the temperature recorded this morning, respiratory rate 20, heart rate 85, blood pressure 137/77, pulse ox saturation recorded on room air 94% saturation. HEENT: Examination shows head was atraumatic. Eyes nonicterus. NECK: Supple. CARDIOVASCULAR: S1, S2 is audible. LUNGS: The patient without any wheeze or crackles today. ABDOMEN: Soft, nontender. Bowel sounds present. EXTREMITIES: No new change. IMPRESSION: Stable respiratory status, favorable improvement of acute exacerbation of bronchial asthma. PLAN OF TREATMENT: Discharge the patient home setting whenever desired. No other change in the treatment will be necessary. DEBORAH FARNSWORTH MD CM:JULIETA [id number] DEBORAH WALKER MD 04/16/19 1421 interface
--- NOTE | ~2019-04-13 | EKG ---
[place], [place] ELECTROCARDIOGRAM REPORT NAME: HERBERT MAN UNIT #: [id number] ROOM: 518 DOCTOR: MILO DRAFT REPORT BIRTHDATE: [birth year] [facility] Test Date: 2019-04-13 Test Time: 16:45:14 Pat Name: HERBERT MAN Department: Room: 518 Gender: F Head Miller: : 1945 Requested By: MALIKA KEEN Order Number: [id number] Reading MD: Shiva Gunderson MD Measurements Intervals [place] Rate: 105 P: 83 MT: 128 QRS: -16 QRSD: 94 T: 63 QT: 345 QTc: 457 Interpretive Statements Sinus tachycardia Borderline left axis deviation Low voltage, extremity and precordial leads Compared to ECG 03/22/2019 02:49:52 No significant changes Electronically Signed On 04-14-2019 6:00:01 PDT by Shiva Gunderson MD CM:EKGRPT:ELECTROCARDIOGRAM REPORT [id number] MALIKA PEDRAZA DRAFT REPORT MALIKA KEEN M.D.
--- NOTE | ~2019-04-13 | EKG ---
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
--- NOTE | ~2019-04-13 | PR ---
[place], [place] PROGRESS NOTE NAME: HERBERT MAN UNIT #: [id number] ROOM: 518 DOCTOR: DEBORAH DAMIAN MD BIRTHDATE: [birth year] DOS: 04/15/2019 SUBJECTIVE: She has reported reduction of the respiratory symptom at this time with current medical management. Denies symptoms of fever or chills. Denies symptoms of hemoptysis, nausea, vomiting, diarrhea or any abdominal pain. Denies symptoms of hematemesis. OBJECTIVE: VITAL SIGNS: For the patient, which are recorded shows a normal temperature, respiratory rate 20, heart rate 110, blood pressure 126/75. Pulse oxygen saturation recorded at rest on room air is 96% saturation. HEENT: Examination shows head was atraumatic. Eyes nonicterus. NECK: Supple. CARDIOVASCULAR: S1, S2 audible. LUNGS: Noted without any crackles. Expiratory wheezing was present. ABDOMEN: Soft, nontender. Bowel sounds present. EXTREMITIES: No new changes. MUSCULOSKELETAL: Without acute deformities. CENTRAL NERVOUS SYSTEM: Cranial nerves 2-12 intact. LABORATORY DATA: Chest x-ray, PA and lateral view that was ordered completed today, was assessed and does not show any evidence of pulmonary infiltration. CBC noted as normal CBC. The BMP noted as BUN 24, creatinine was normal. IMPRESSION: The patient who has been currently noted with mild sinus tachycardia at this time with acute exacerbation of bronchial asthma, responded to treatment. There was no evidence of acute pneumonia or findings of congestive heart failure. PLAN OF MANAGEMENT: Continue current dose of corticosteroids. Continue bronchodilators, oxygen supplementation, other therapy, plan of management and other care plan for treatment. Supportive care. Usual medical management, other therapy and plan of care. Additional treatment changes recommended based on progression of illness. Possible discharge home could be considered in the morning. [place], [place] PROGRESS NOTE NAME: HERBERT MAN UNIT #: [id number] ROOM: 518 DOCTOR: DEBORAH DAMIAN MD BIRTHDATE: [birth year] DEBORAH FARNSWORTH MD CM:PNTRANS [id number] DEBORAH WALKER MD 04/15/19 8945 interface
[~2019-04-13 16:39] MED LIST changes: +CALCIUM 600 +1 EA11 PO; +NORTRIPTYLINE H25 M1 PO; +PROTONIX40 MG PO
[2019-04-13 16:40] VITALS: BP 123/74
[2019-04-13 17:22] LABS: HEMATOCRIT 41.6 % (37.0-47.0); HEMOGLOBIN 13.6 g/dl (12.0-16.0); LYMPH # 1.5 10*3/uL (1.3-4.4); LYMPH % 25.9 % (27.0-41.0); MEAN CELL VOLUME 91.6 fl (81.0-99.0); MEAN CORPUSCULAR HGB CONC 32.7 g/dl (33.0-37.0); MEAN PLATELET VOLUME 9.9 fl (9.6-12.3); MONO # 0.5 10*3/uL (0.1-1.0); MONO % 8.9 % (3.0-9.0); NEUT # 3.8 10*3/uL (2.3-7.9); NEUT % 64.9 % (47.0-73.0); PLATELET COUNT AUTOMATED 305 10*3/uL (130-400); RED BLOOD COUNT 4.54 10*6/uL (4.10-5.10); RED CELL DISTRI WIDTH 13.2 % (0-14.5); WHITE BLOOD COUNT 5.9 10*3/uL (4.8-10.8)
[2019-04-13 17:27] VITALS: BP 120/65
[2019-04-13 17:33] LABS: ACT PARTIAL THROMBO TIME 24.7 SECONDS (20.0-32.1); INTERNATIONAL NORM RATIO 0.9 (2.0-3.5)
[2019-04-13 17:41] LABS: ALBUMIN 3.1 gm/dl (3.1-4.5); ALKALINE PHOSPHATASE 93 U/L (45-117); BUN 14 mg/dl (7-24); CHLORIDE 107 mmol/L (98-107); CREATININE 1.12 mg/dL (0.55-1.02); POTASSIUM 3.8 mmol/L (3.5-5.1); SGOT/AST 19 IU/L (3-35); SGPT/ALT 25 U/L (12-78); SODIUM 139 mmol/L (136-145); TOTAL PROTEIN 6.4 gm/dL (6.4-8.2)
[2019-04-13 17:45] LABS: TROPONIN I < 0.015 ng/ml (<0.045)
--- NOTE | 2019-04-13 19:43 | NUR ---
PT REQUESTING TO SPEAK WITH DOCTOR.MD HI NOTIFIED.
[2019-04-13 20:00] VITALS: BP 138/80
[2019-04-13 20:15] VITALS: BP 128/66
--- NOTE | 2019-04-13 21:08 | NUR ---
PATIENT IS STABLE AND READY FOR TRANSPORT TO INPATIENT ROOM.
--- NOTE | 2019-04-13 21:20 | NUR ---
A 73 YEAR OLD FEMALE, admitted to 5E, under the services of CUCO Ferrer DO with a diagnosis of ACUTE COPD EXACERBATION. Chief complaint is SHORTNESS OF BREATH. Patient arrived via stretcher from ER. Monitor applied. Initial assessment completed. Vital signs taken and recorded. CUCO FERRER DO notified of admission to the unit. Orders received. See assessment for past medical history, medications and allergies. Patient and/or family oriented to unit. visitation policy reviewed. Clothing/patient valuable form completed. DALLIN ABDUL
[2019-04-13 21:59] VITALS: BP 138/80
--- NOTE | 2019-04-13 23:03 | NUR ---
DR. CARABALLO AWARE OF [facility] REC BEING UP TO DATE.
--- NOTE | 2019-04-13 23:45 | NUR ---
PT INSTRUCTED ON USE OF DEVICE AND TO USE DEVICE Q 1-2 HOURS W/A
[2019-04-14] VITALS: BP 110/57
--- NOTE | 2019-04-14 04:50 | NUR ---
CONTACTED DR. LARA SOMETIME LAST NIGHT IN REGARDS TO PATIENT'S CODE STATUS. INFORMED DR. LARA THAT PATIENT WISHES TO BE A FULL CODE WITH NO INTUBATION. DR. LARA STATED "THAT CODE STATUS DOES NOT EXIST." NO NEW ORDERS RECIEVED AT THIS TIME.
[2019-04-14 07:32] LABS: HEMATOCRIT 43.4 % (37.0-47.0); HEMOGLOBIN 13.9 g/dl (12.0-16.0); MEAN CELL VOLUME 92.5 fl (81.0-99.0); MEAN CORPUSCULAR HGB 29.6 pg (27.0-31.0); MEAN PLATELET VOLUME 10.2 fl (9.6-12.3); PLATELET COUNT AUTOMATED 330 10*3/uL (130-400); RED BLOOD COUNT 4.69 10*6/uL (4.10-5.10); RED CELL DISTRI WIDTH 13.2 % (0-14.5); WHITE BLOOD COUNT 5.6 10*3/uL (4.8-10.8)
[2019-04-14 07:36] LABS: ACT PARTIAL THROMBO TIME 23.6 SECONDS (20.0-32.1); INTERNATIONAL NORM RATIO 0.9 (2.0-3.5)
[2019-04-14 07:46] LABS: CREATININE 1.11 mg/dL (0.55-1.02); FREE T4 1.01 ng/dl (0.76-1.46); PHOSPHOROUS 2.9 mg/dL (2.5-4.9); POTASSIUM 4.3 mmol/L (3.5-5.1); TOTAL PROTEIN 6.6 gm/dL (6.4-8.2)
[2019-04-14 07:51] LABS: THYROID STIM HORMONE (HS) 0.577 uIU/ml (0.358-4.75)
[2019-04-14 08:00] VITALS: BP 105/53
[2019-04-14 08:45] LABS: PLATELET SUFFICIENCY NORMAL (NORMAL); TOTAL CELLS COUNTED 100 #CELLS
--- NOTE | 2019-04-14 09:40 | NUR ---
DR FARNSWORTH ON UNIT AND AWARE OF CONSULT
[2019-04-14 12:00] VITALS: BP 109/69
--- NOTE | 2019-04-14 12:05 | NUR ---
SPOKE WITH DR COLMENARES RE: CODE STATUS/ETHICS CONSULT. HE STATES TO KEEP CONSULT.
--- NOTE | 2019-04-14 13:05 | NUR ---
SPOKE WITH CHRISTIE ANGEL RE: CODE STATUS/ETHICS CONSULT. SHE STATES SHE WILL SEE THE PATIENT.
--- NOTE | 2019-04-14 14:43 | NUR ---
bioethics consult: spoke with client who is asking to be an arrest with DNI, she is a &ox4, pleasant, she reports that she wants all measures up until the point that she would need intubated and then she does not want that, i spoke with her nurse and dr bolaños. he reports he can make her status DNR-arrest, with no intubation. nursing is aware. they will follow up for the order.
[2019-04-14 16:00] VITALS: BP 113/52
--- NOTE | 2019-04-14 16:09 | NUR ---
Data Architect in to talk to patient. Patient states lives at HOME with SON. There are FEW steps in the home. Physician: Hilda MALONE Pharmacy: [facility] health services: NONE Patient's level of ADLs: INDEPENDENT Patient has working utilities: YES DME: NEBULIZER Follow-up physician's appointment after d/c: WILL BE MADE BY HOSPITALIST NURSE DIRECTOR Does patient want to access PORTAL?: NO Discharge plan PT LIVES AT HOME WITH HER SON AND IS INDEPENDENT IN CARE. DENIES SHE WILL HAVE ANY NEEDS ON DISCHARGE. WILL RETURN HOME. WILL CONTINUE TO FOLLOW. PT STATES HE SON WILL TAKE HER HOME.. ALVARO DIETRICH
--- NOTE | 2019-04-14 19:44 | NUR ---
INFORMED THAT CODE STATUS ORDER HAS YET TO BE UPDATED PER PATIENT WISHES, INFORMED THAT ETHICS COMMITTEE AND PATIENT/NURSE DISCUSSED WITH PREVIOUS TEAM AND PATIENT WANTS TO BE FULL CODE NO INTUBATION. STATED SHE WOULD LOOK INTO IT
[2019-04-14 20:00] VITALS: BP 122/59
[2019-04-15] VITALS: BP 125/55
--- NOTE | 2019-04-15 00:14 | NUR ---
24 HR chart check completed.
--- NOTE | 2019-04-15 00:30 | NUR ---
SLEEPING. NO DISTRESS NOTED. RESPIRATIONS EASY. LUNGS DIMINISHED WITH EXP WHEEZES. PULSE OX 93% RA. CALL LIGHT WITHIN REACH. NO VOICED COMPLAINTS
--- NOTE | 2019-04-15 04:12 | NUR ---
AWAKENS, C/O "I HAVE GERD." REQUESTED AND RECEIVED ZOFRAN PER PRN ORDER. CALL LIGHT WITHIN REACH. WILL MONITOR FOR EFFECTIVENESS
--- NOTE | 2019-04-15 06:00 | NUR ---
earlier zofran effective. sleeping. respirations easy. call light within reach. no further voiced complaints
[2019-04-15 06:52] LABS: HEMATOCRIT 38.9 % (37.0-47.0); HEMOGLOBIN 12.5 g/dl (12.0-16.0); MEAN CELL VOLUME 93.1 fl (81.0-99.0); MEAN CORPUSCULAR HGB 29.9 pg (27.0-31.0); MEAN CORPUSCULAR HGB CONC 32.1 g/dl (33.0-37.0); MEAN PLATELET VOLUME 9.8 fl (9.6-12.3); PLATELET COUNT AUTOMATED 289 10*3/uL (130-400); RED BLOOD COUNT 4.18 10*6/uL (4.10-5.10); RED CELL DISTRI WIDTH 13.3 % (0-14.5); WHITE BLOOD COUNT 8.8 10*3/uL (4.8-10.8)
[2019-04-15 07:06] LABS: BUN 24 mg/dl (7-24); CHLORIDE 106 mmol/L (98-107); CREATININE 1.06 mg/dL (0.55-1.02); POTASSIUM 4.4 mmol/L (3.5-5.1); SODIUM 137 mmol/L (136-145)
[2019-04-15 07:19] LABS: ATYPICAL LYMPHS 1 % (0-0); PLATELET SUFFICIENCY NORMAL (NORMAL); TOTAL CELLS COUNTED 100 #CELLS; VACUOLATION OF NEUTROPHILS SLIGHT
[2019-04-15 08:00] VITALS: BP 120/58
[2019-04-15 12:00] VITALS: BP 126/75
[2019-04-15 16:00] VITALS: BP 132/68
--- NOTE | 2019-04-15 16:03 | NUR ---
INFORMED THAT PATIENT IS REQUESTING SOMETHING FOR INDIGESTION. STATED THAT HE WILL INCREASE PROTONIX TO BID AND AND CARAFATE.
[2019-04-15 20:00] VITALS: BP 123/72
[2019-04-16] VITALS: BP 120/65
--- NOTE | 2019-04-16 03:05 | NUR ---
24 HOUR CHART CHECK COMPLETE.
--- NOTE | 2019-04-16 05:41 | NUR ---
PRN ZOFRAN ADMINISTERED FOR PT C/O NAUSEA AND REFLUX. WILL CONTINUE TO MONITOR.
[2019-04-16 08:00] VITALS: BP 137/77
--- NOTE | 2019-04-16 08:13 | NUR ---
24 HR chart check completed.
--- NOTE | 2019-04-16 09:00 | NUR ---
RESTING IN BED WITH NO DISTRESS NOTED. RESPIRATIONS EASY. LUNGS DIMINISHED, WITH FAINT EXP WHEEZES. PULSE OX 96% RA. CALL LIGHT WITHIN REACH. NO VOICED COMPLAINTS
--- NOTE | 2019-04-16 09:00 | NUR ---
DR SMALLWOOD PRESENT ON FLOOR TO ASSESS PATIENT AND DISCUSS PLAN OF CARE
[2019-04-16] MEDS ORDERED: PROTONIX40 MG PO (09:30)
[2019-04-16] MEDS ORDERED: PREDNISONE10 MG PO (09:30)
[2019-04-16] MEDS ORDERED: AVPAK AZITHROM250 M1 PO (09:31)
[2019-04-16] MEDS ORDERED: CARAFATE1 G1 PO (09:32)
--- NOTE | 2019-04-16 11:45 | NUR ---
DR FARNSWORTH PRESENT ON FLOOR, AWARE PATIENT NEING DISCHARGED
--- NOTE | 2019-04-16 12:05 | NUR ---
Discharge instructions reviewed with patient/family. Patient receptive and verbalizes understanding. Follow-up care arranged. Written instructions given to patient/family. PATIENT OFFERED WC FOR D/C, DECLINED OPTING TO AMBULATE OFF FLOOR IN CARE OF SON. DARRION GONZALEZ
== END 2019-04-16 12:05 | disposition home or self-care (01) | DRG 190 ==
LOC: ED 16:39 → 5E 20:04 → EDHOLD 20:04 → 5E 20:21
PROVIDERS: Emergency Medicine; Internal Medicine; Student in an Organized Health Care Education/Training Program; ADMIT Internal Medicine
DX: J44.0 Chronic obstructive pulmonary disease with (acute) lower respiratory infection (principal); J18.9 Pneumonia, unspecified organism; E44.0 Moderate protein-calorie malnutrition; J45.51 Severe persistent asthma with (acute) exacerbation; F41.1 Generalized anxiety disorder; J44.1 Chronic obstructive pulmonary disease with (acute) exacerbation; D72.810 Lymphocytopenia; H43.392 Other vitreous opacities, left eye; E55.9 Vitamin D deficiency, unspecified; E78.00 Pure hypercholesterolemia, unspecified; N18.3 Chronic kidney disease, stage 3 (moderate); F34.1 Dysthymic disorder; F41.0 Panic disorder [episodic paroxysmal anxiety]; R73.03 Prediabetes; G25.81 Restless legs syndrome; K21.9 Gastro-esophageal reflux disease without esophagitis; F33.42 Major depressive disorder, recurrent, in full remission; Z88.2 Allergy status to sulfonamides; Z87.891 Personal history of nicotine dependence; Z82.5 Family history of asthma and other chronic lower respiratory diseases; Z81.8 Family history of other mental and behavioral disorders; Z80.8 Family history of malignant neoplasm of other organs or systems; Z79.899 Other long term (current) drug therapy; Z68.30 Body mass index [BMI] 30.0-30.9, adult

== ENCOUNTER 2019-09-25 12:59 | Emergency (ER) | payer MEDICARE ==
[~2019-09-25] VITALS: Ht 157.4 cm; Wt 77.1 kg
[~2019-09-25 12:59] MED LIST changes: +AVPAK AZITHROM250 M1 PO; +CARAFATE1 G1 PO
[2019-09-25 13:08] VITALS: BP 136/84
[2019-09-25] MEDS ORDERED: TESSALON PERLE100 M1 PO (15:25)
[2019-09-25] MEDS ORDERED: PROVENTIL HFA6.7 GM INH (15:25)
[2019-09-25] MEDS ORDERED: FLONASE ALLERG9.9 ML NAS (15:27)
== END 2019-09-25 15:30 | disposition home or self-care (01) ==
LOC: ED 12:59
DX: J44.9 Chronic obstructive pulmonary disease, unspecified (principal); F32.9 Major depressive disorder, single episode, unspecified; F41.9 Anxiety disorder, unspecified; Z88.2 Allergy status to sulfonamides; Z79.899 Other long term (current) drug therapy; Z79.2 Long term (current) use of antibiotics

== ENCOUNTER 2020-01-29 07:17 | Emergency (ER) | payer MEDICARE ==
[~2020-01-29] VITALS: Ht 157.4 cm; Wt 72.6 kg
[~2020-01-29 07:17] MED LIST changes: +FLONASE ALLERG9.9 ML NAS; +PROVENTIL HFA6.7 GM INH; +TESSALON PERLE100 M1 PO
[2020-01-29 07:23] VITALS: BP 143/80
[2020-01-29 07:46] LABS: HEMATOCRIT 45.5 % (37.0-47.0); LYMPH # 1.8 10*3/uL (1.3-4.4); LYMPH % 26.3 % (27.0-41.0); MEAN CELL VOLUME 91.2 fl (81.0-99.0); MEAN CORPUSCULAR HGB 29.9 pg (27.0-31.0); MEAN CORPUSCULAR HGB CONC 32.7 g/dl (33.0-37.0); MEAN PLATELET VOLUME 9.5 fl (9.6-12.3); MONO # 0.6 10*3/uL (0.1-1.0); MONO % 8.3 % (3.0-9.0); NEUT # 4.5 10*3/uL (2.3-7.9); PLATELET COUNT AUTOMATED 314 10*3/uL (130-400); RED BLOOD COUNT 4.99 10*6/uL (4.10-5.10)
[2020-01-29 07:58] LABS: ACT PARTIAL THROMBO TIME 25.5 SECONDS (20.0-32.1)
[2020-01-29 08:00] LABS: ALBUMIN 3.5 gm/dl (3.1-4.5); CREATININE 1.2 mg/dL (0.55-1.02)
[2020-01-29] MEDS ORDERED: ZOFRAN4 MG PO (09:43)
[2020-01-29 10:17] LABS: BILIRUBIN NEGATIVE (NEGATIVE); BLOOD NEGATIVE (NEGATIVE); CLARITY CLEAR (CLEAR); COLOR YELLOW (YELLOW); GLUCOSE NEGATIVE (NEGATIVE); KETONE NEGATIVE (NEGATIVE); SPECIFIC GRAVITY 1.005 (1.005-1.030)
[2020-01-29 10:18] LABS: LEUKO ESTERASE NEGATIVE (NEGATIVE); NITRITE NEGATIVE (NEGATIVE); RBC 0-2 rbc/hpf (0-2); UROBILINOGEN 0.2 E.U./dl (0.2-1.0); WBC 0-2 wbc/hpf (0-5)
== END 2020-01-29 10:26 | disposition home or self-care (01) ==
LOC: ED 07:17
PROVIDERS: Family Medicine
DX: F41.9 Anxiety disorder, unspecified (principal); R11.2 Nausea with vomiting, unspecified; J44.9 Chronic obstructive pulmonary disease, unspecified; R79.1 Abnormal coagulation profile; Z87.891 Personal history of nicotine dependence; Z88.2 Allergy status to sulfonamides; Z79.899 Other long term (current) drug therapy

== ENCOUNTER 2020-02-04 13:02 | Emergency (ER) | payer MEDICARE ==
[~2020-02-04] VITALS: Ht 157.4 cm; Wt 72.6 kg
[2020-02-04 13:16] VITALS: BP 91/67
[2020-02-04 14:03] LABS: BASO % 0.1 % (0.0-1.0); HEMATOCRIT 42.5 % (37.0-47.0); LYMPH # 1.4 10*3/uL (1.3-4.4); LYMPH % 18.4 % (27.0-41.0); MEAN CELL VOLUME 91.2 fl (81.0-99.0); MEAN CORPUSCULAR HGB 29.4 pg (27.0-31.0); MEAN CORPUSCULAR HGB CONC 32.2 g/dl (33.0-37.0); MEAN PLATELET VOLUME 9.7 fl (9.6-12.3); MONO # 0.5 10*3/uL (0.1-1.0); MONO % 6.7 % (3.0-9.0); NEUT # 5.5 10*3/uL (2.3-7.9); NEUT % 73.9 % (47.0-73.0); PLATELET COUNT AUTOMATED 320 10*3/uL (130-400); RED BLOOD COUNT 4.66 10*6/uL (4.10-5.10); RED CELL DISTRI WIDTH 12.6 % (0-14.5); WHITE BLOOD COUNT 7.5 10*3/uL (4.8-10.8)
[2020-02-04 14:13] LABS: ACT PARTIAL THROMBO TIME 25.7 SECONDS (20.0-32.1)
[2020-02-04 14:19] LABS: BUN 11 mg/dl (7-24); CHLORIDE 106 mmol/L (98-107); CREATININE 1.14 mg/dL (0.55-1.02); POTASSIUM 4.1 mmol/L (3.5-5.1); SODIUM 138 mmol/L (136-145); TROPONIN I < 0.015 ng/ml (<0.045)
[2020-02-04] MEDS ORDERED: VISTARIL25 MG PO (15:34)
== END 2020-02-04 17:31 | disposition home or self-care (01) ==
LOC: ED 13:02
PROVIDERS: Emergency Medicine
DX: F41.1 Generalized anxiety disorder (principal); R79.1 Abnormal coagulation profile; R06.00 Dyspnea, unspecified; K21.9 Gastro-esophageal reflux disease without esophagitis; J44.9 Chronic obstructive pulmonary disease, unspecified; Z88.2 Allergy status to sulfonamides; Z79.899 Other long term (current) drug therapy; Z87.891 Personal history of nicotine dependence

== ENCOUNTER → 2020-03-01 | Outpatient (CLI) | payer MEDICARE | END | disposition home or self-care (01) | LOC: MRI 09:00 | DX: G31.9 Degenerative disease of nervous system, unspecified (principal); R41.3 Other amnesia ==

== ENCOUNTER 2020-03-31 20:03 | Inpatient (IN) | payer MEDICARE ==
[~2020-03-31] VITALS: Ht 157.4 cm; Wt 77.3 kg
[2020-03-31 20:16] VITALS: BP 136/84
[2020-03-31 20:30] LABS: BASO % 0.1 % (0.0-1.0); HEMATOCRIT 45.4 % (37.0-47.0); LYMPH # 2.3 10*3/uL (1.3-4.4); LYMPH % 25.8 % (27.0-41.0); MEAN CELL VOLUME 92.5 fl (81.0-99.0); MEAN CORPUSCULAR HGB 29.9 pg (27.0-31.0); MEAN CORPUSCULAR HGB CONC 32.4 g/dl (33.0-37.0); MEAN PLATELET VOLUME 9.5 fl (9.6-12.3); MONO # 0.8 10*3/uL (0.1-1.0); MONO % 8.5 % (3.0-9.0); NEUT # 5.8 10*3/uL (2.3-7.9); PLATELET COUNT AUTOMATED 320 10*3/uL (130-400); RED BLOOD COUNT 4.91 10*6/uL (4.10-5.10); RED CELL DISTRI WIDTH 12.9 % (0-14.5); WHITE BLOOD COUNT 8.9 10*3/uL (4.8-10.8)
[2020-03-31 20:42] LABS: ACT PARTIAL THROMBO TIME 26.2 SECONDS (20.0-32.1)
[2020-03-31 20:48] LABS: ALBUMIN 3.5 gm/dl (3.1-4.5); ALKALINE PHOSPHATASE 128 U/L (45-117); BUN 20 mg/dl (7-24); CHLORIDE 109 mmol/L (98-107); CREATININE 0.95 mg/dL (0.55-1.02); POTASSIUM 4.1 mmol/L (3.5-5.1); SGOT/AST 22 IU/L (3-35); SGPT/ALT 46 U/L (12-78); SODIUM 141 mmol/L (136-145); TOTAL PROTEIN 7.2 gm/dL (6.4-8.2)
[2020-03-31 20:52] LABS: TROPONIN I < 0.015 ng/ml (<0.045)
[2020-03-31 21:52] VITALS: BP 108/49
--- NOTE | 2020-03-31 22:58 | NUR ---
NO C/O AT THIS TIME.PT BEING ADMITTED.--JOELLE AGUIAR RN
[2020-03-31 22:59] VITALS: BP 103/48
--- NOTE | 2020-03-31 23:16 | NUR ---
NAA CALLED AND ASKED TO BRING PATIENT TO THE FLOOR. THIS RN INFORMED HER THAT THE ROOM NEEDS TO BE CLEANED BY HOUSEKEEPING STILL AND I WILL LET HER KNOW WHEN SHE CAN BRING THE PATIENT UP.
--- NOTE | 2020-03-31 23:52 | NUR ---
REPORT FROM NAA RN AT THIS TIME. ALL QUESTIONS ANSWERED. WHEN ASKED IF SHE STARTED THE ORDERED ZITHROMAX SHE STATED "NO. WE DO NOT HAVE TO DO ORDERS THAT THE HOSPITALISTS ORDER". NAA WAS INFORMED THAT THE ROOM HAS NOT BEEN CLEAN YET, SO THE ANTIBIOTIC IS GOING TO BE LATE. WILL LET HER KNOW WHEN THE ROOM IS CLEAN.
[2020-04-01 00:15] VITALS: BP 127/60
--- NOTE | 2020-04-01 00:15 | NUR ---
Time: 15 A 74 year old FEMALE admitted to 4E under services of FABBY GRAHAM DO. Pt. arrived via stretcher from ER. Chief complaint: SHORTNESS OF BREATH. BLAKE NARVAEZ
[2020-04-01] MEDS ORDERED: ATIVAN1 MG PO (00:27)
[2020-04-01] MEDS ORDERED: ARNUITY ELLIP100 MCG INH (00:28)
[2020-04-01] MEDS ORDERED: ROPINIROLE HY0.25 MG PO (00:29)
[2020-04-01] MEDS ORDERED: CETIRIZINE HYDR10 MG PO (00:29)
[2020-04-01] MEDS ORDERED: VITAMIN B121000 MC1 PO (00:30)
--- NOTE | 2020-04-01 00:33 | NUR ---
MED REC COMPLETED WITH PATIENT ALERT AND ORIENTED TO PERSON PLACE AND TIME
--- NOTE | 2020-04-01 00:50 | NUR ---
DR BRADLEY AWARE OF PATIENT REQUESTING ATIVAN AND REQUIP FOR BED
--- NOTE | 2020-04-01 02:25 | NUR ---
PATIENT RESTING IN BED WITH NO NEEDS MADE. BED IN LOWEST POSITION, CALL LIGHT IN REACH
--- NOTE | 2020-04-01 02:30 | NUR ---
24 HR chart check completed.
[2020-04-01 06:03] LABS: ALBUMIN 3.1 gm/dl (3.1-4.5); ALKALINE PHOSPHATASE 115 U/L (45-117); BUN 24 mg/dl (7-24); CHLORIDE 108 mmol/L (98-107); POTASSIUM 4.4 mmol/L (3.5-5.1); SGOT/AST 21 IU/L (3-35); SGPT/ALT 43 U/L (12-78); SODIUM 138 mmol/L (136-145); TOTAL PROTEIN 6.7 gm/dL (6.4-8.2)
[2020-04-01 06:06] LABS: HEMATOCRIT 42.8 % (37.0-47.0); MEAN CELL VOLUME 92.2 fl (81.0-99.0); MEAN CORPUSCULAR HGB 30.2 pg (27.0-31.0); MEAN CORPUSCULAR HGB CONC 32.7 g/dl (33.0-37.0); MEAN PLATELET VOLUME 10.2 fl (9.6-12.3); PLATELET COUNT AUTOMATED 278 10*3/uL (130-400); RED BLOOD COUNT 4.64 10*6/uL (4.10-5.10); RED CELL DISTRI WIDTH 12.9 % (0-14.5); WHITE BLOOD COUNT 9.7 10*3/uL (4.8-10.8)
[2020-04-01 06:43] LABS: PLATELET SUFFICIENCY NORMAL (NORMAL); TOTAL CELLS COUNTED 100 #CELLS
[2020-04-01 07:25] LABS: VITAMIN D, 25-HYDROXY 39.7 ng/mL (30-100)
[2020-04-01 08:00] VITALS: BP 110/61
--- NOTE | 2020-04-01 10:30 | NUR ---
Icu Rn in to talk to patient. Patient states lives at home alone with her son. There are 28 steps in the home. Physician: Flower Marrero Pharmacy: [facility] Home health services: none Patient's level of ADLs: INDEPENDENT Patient has working utilities: yes DME: nebulizer Follow-up physician's appointment after d/c: will be made by the hospitalist nurse director upon discharge Does patient want to access PORTAL?: no Discharge plan discussed with patient. She lives at home alone with her son. Her son has a home office within the house and checks in on her during his breaks. She states she is independent in her ADLs and ambulation. Discussed short term rehab and home health care services and she declines. She states she has 2 big dog that she would have to quarantine. CM will continue to follow for any discharge planning needs. When medically stable she will be discharged to home. She states her son will provide transportation on discharge. LARRY SANDOVAL
[2020-04-01 12:00] VITALS: BP 144/66
[2020-04-01] MEDS ORDERED: ATIVAN0.5 MG PO (12:32)
[2020-04-01] MEDS ORDERED: LORAZEPAM2 MG PO (12:33)
--- NOTE | 2020-04-01 12:43 | NUR ---
HOME MED RECONCILIATION UPDATED AND DR ESCALERA NOTIFIED.
[2020-04-01 16:00] VITALS: BP 119/72
[2020-04-01 20:00] VITALS: BP 112/61
--- NOTE | 2020-04-01 23:15 | NUR ---
DR BRADLEY CALLED REGARDING HEARTBURN AND INDIGESTION AND REQUEST FOR ERIKA AMADOR TO FOLLOW
--- NOTE | 2020-04-01 23:48 | NUR ---
PATIENT MEDICATED WITH TUMS PER DRS ORDERS FOR COMPLAINTS OF HEARTBURN AND INDIGESTION. RN WILL MONITOR FOR EFFECTIVENESS
[2020-04-02] VITALS: BP 100/61
--- NOTE | 2020-04-02 00:49 | NUR ---
PATIENT STATES RELIEF OF SYMPTOMS SINCE EARLIER MEDICATION
[2020-04-02 06:55] LABS: BASO % 0.1 % (0.0-1.0); HEMATOCRIT 41.2 % (37.0-47.0); LYMPH # 0.9 10*3/uL (1.3-4.4); LYMPH % 6.7 % (27.0-41.0); MEAN CORPUSCULAR HGB 29.8 pg (27.0-31.0); MEAN PLATELET VOLUME 10.1 fl (9.6-12.3); MONO # 0.6 10*3/uL (0.1-1.0); MONO % 4.5 % (3.0-9.0); NEUT # 12.3 10*3/uL (2.3-7.9); NEUT % 88.1 % (47.0-73.0); PLATELET COUNT AUTOMATED 300 10*3/uL (130-400); RED BLOOD COUNT 4.43 10*6/uL (4.10-5.10); RED CELL DISTRI WIDTH 13.1 % (0-14.5); WHITE BLOOD COUNT 13.9 10*3/uL (4.8-10.8)
[2020-04-02 07:13] LABS: BUN 24 mg/dl (7-24); CHLORIDE 108 mmol/L (98-107); CREATININE 0.95 mg/dL (0.55-1.02); POTASSIUM 4.4 mmol/L (3.5-5.1); SODIUM 141 mmol/L (136-145)
[2020-04-02 08:00] VITALS: BP 105/47
--- NOTE | 2020-04-02 08:30 | NUR ---
CM in to see patient. No new needs or request at this time. Discussed home health care services and she declines. CM will continue to follow for any discharge planning needs. When medically stable she will be discharged to home.
[2020-04-02 12:00] VITALS: BP 122/58
[2020-04-02 16:00] VITALS: BP 121/66
[2020-04-02 20:00] VITALS: BP 113/50
--- NOTE | 2020-04-02 22:45 | NUR ---
PATIENT COMPLAINING OF IV BEING SORE. RED AND SWOLLEN AROUND SITE. REMOVED AND NEW 22G INSERTED INTO RIGHT WRIST ON FIRST ATTEMPT WITHOUT DIFFICULTY, PATIENT TOLERATED WELL. WILL CONTINUE TO MONITOR.
--- NOTE | 2020-04-02 22:45 | NUR ---
MEDICATED WITH TUMS FOR COMPLAINTS OF HEARTBURN. WILL CONTINUE TO MONITOR.
[2020-04-03] VITALS: BP 122/68
--- NOTE | 2020-04-03 07:42 | NUR ---
24 HR chart check completed.
[2020-04-03 08:00] VITALS: BP 109/61
--- NOTE | 2020-04-03 08:00 | NUR ---
Patient resting quietly with no c/o discomfort. Respirations easy and regular. Vital signs stable. No overt distress. CHLOE MARRERO
--- NOTE | 2020-04-03 09:00 | NUR ---
CM in to see patient. Discussed home health care services and she declines. She asked about someone coming in and doing light housecleaning. Explained that would be private pay and CM could give her references and she declined. CM will continue to follow for any discharge planning needs. She states the doctor told her she would be going home today. When medically stable she will be discharged to home. Her son will provide transportation on discharge.
[2020-04-03] MEDS ORDERED: ZITHROMAX TRI-500 M1 PO (10:58)
[2020-04-03] MEDS ORDERED: PREDNISONE10 MG PO (11:00)
--- NOTE | 2020-04-03 12:00 | NUR ---
LEAVING IN CARE OF PA VIA WHEELCHAIR.
== END 2020-04-03 12:00 | disposition home or self-care (01) | DRG 191 ==
LOC: ED 20:03 → EDHOLD 22:47 → 4E 22:47 → 5E 23:03 → 4E 23:13 → 5E 23:21 → 4E 23:24
PROVIDERS: Emergency Medicine; Internal Medicine; ADMIT Student in an Organized Health Care Education/Training Program; ATTEND Student in an Organized Health Care Education/Training Program
DX: J44.1 Chronic obstructive pulmonary disease with (acute) exacerbation (principal); E44.0 Moderate protein-calorie malnutrition; F33.9 Major depressive disorder, recurrent, unspecified; E87.8 Other disorders of electrolyte and fluid balance, not elsewhere classified; E83.39 Other disorders of phosphorus metabolism; J45.909 Unspecified asthma, uncomplicated; N18.3 Chronic kidney disease, stage 3 (moderate); E78.00 Pure hypercholesterolemia, unspecified; R73.9 Hyperglycemia, unspecified; F41.9 Anxiety disorder, unspecified; K21.9 Gastro-esophageal reflux disease without esophagitis; D72.829 Elevated white blood cell count, unspecified; Z68.31 Body mass index [BMI] 31.0-31.9, adult; Z88.2 Allergy status to sulfonamides; Z79.899 Other long term (current) drug therapy; Z87.891 Personal history of nicotine dependence; Z82.5 Family history of asthma and other chronic lower respiratory diseases; Z79.51 Long term (current) use of inhaled steroids

== ENCOUNTER → 2020-04-25 | Outpatient (CLI) | payer MEDICARE ==
[~2020-04-25] MED LIST changes: +ARNUITY ELLIP100 MCG INH; +ATIVAN1 MG PO; +CETIRIZINE HYDR10 MG PO; +LORAZEPAM2 MG PO; +VITAMIN B121000 MC1 PO; +ZITHROMAX TRI-500 M1 PO
[2020-04-25 10:27] LABS: HEMATOCRIT 43.7 % (37.0-47.0); MEAN CORPUSCULAR HGB 29.6 pg (27.0-31.0); MEAN CORPUSCULAR HGB CONC 32.5 g/dl (33.0-37.0); MEAN PLATELET VOLUME 9.7 fl (9.6-12.3); RED BLOOD COUNT 4.8 10*6/uL (4.10-5.10); RED CELL DISTRI WIDTH 12.6 % (0-14.5); WHITE BLOOD COUNT 6.2 10*3/uL (4.8-10.8)
[2020-04-25 10:44] LABS: ALKALINE PHOSPHATASE 128 U/L (45-117); BUN 13 mg/dl (7-24); CHLORIDE 108 mmol/L (98-107); CHOLESTEROL 235 mg/dL (<200); CPK 75 U/L (26-192); CREATININE 0.97 mg/dL (0.55-1.02); HDL CHOLESTEROL 58 mg/dl (40-60); LDL CHOLESTEROL 151 mg/dL (9-159); SGOT/AST 25 IU/L (3-35); SGPT/ALT 52 U/L (12-78); SODIUM 139 mmol/L (136-145); TRIGLYCERIDES 130 mg/dl (<150); VLDL CHOLESTEROL 26 mg/dL (6-40)
== END | disposition home or self-care (01) ==
LOC: LAB 09:50
PROVIDERS: ATTEND Family Medicine
DX: E55.9 Vitamin D deficiency, unspecified (principal); E78.00 Pure hypercholesterolemia, unspecified; E74.9 Disorder of carbohydrate metabolism, unspecified; G47.00 Insomnia, unspecified; G25.81 Restless legs syndrome; Z79.899 Other long term (current) drug therapy

== ENCOUNTER 2020-05-04 08:18 | Emergency (ER) | payer MEDICARE ==
[2020-05-04 09:46] LABS: BASO % 0.1 % (0.0-1.0); HEMATOCRIT 44.2 % (37.0-47.0); LYMPH # 1.3 10*3/uL (1.3-4.4); LYMPH % 14.9 % (27.0-41.0); MEAN CELL VOLUME 90.9 fl (81.0-99.0); MEAN CORPUSCULAR HGB 29.6 pg (27.0-31.0); MEAN CORPUSCULAR HGB CONC 32.6 g/dl (33.0-37.0); MEAN PLATELET VOLUME 9.1 fl (9.6-12.3); MONO # 0.6 10*3/uL (0.1-1.0); MONO % 6.5 % (3.0-9.0); NEUT # 6.9 10*3/uL (2.3-7.9); NEUT % 77.8 % (47.0-73.0); PLATELET COUNT AUTOMATED 392 10*3/uL (130-400); RED BLOOD COUNT 4.86 10*6/uL (4.10-5.10); RED CELL DISTRI WIDTH 12.7 % (0-14.5); WHITE BLOOD COUNT 8.9 10*3/uL (4.8-10.8)
[2020-05-04 10:12] LABS: ALBUMIN 3.3 gm/dl (3.1-4.5); ALKALINE PHOSPHATASE 104 U/L (45-117); BUN 22 mg/dl (7-24); CHLORIDE 105 mmol/L (98-107); CREATININE 0.89 mg/dL (0.55-1.02); POTASSIUM 4.3 mmol/L (3.5-5.1); SGOT/AST 23 IU/L (3-35); SGPT/ALT 29 U/L (12-78); SODIUM 138 mmol/L (136-145)
[2020-05-04 10:48] VITALS: BP 136/70
== END 2020-05-04 11:41 | disposition home or self-care (01) ==
LOC: ED 08:18
PROVIDERS: Physical Therapist
DX: S46.912A Strain of unspecified muscle, fascia and tendon at shoulder and upper arm level, left arm, initial encounter (principal); J44.1 Chronic obstructive pulmonary disease with (acute) exacerbation; Z88.2 Allergy status to sulfonamides; Z79.899 Other long term (current) drug therapy; X58.XXXA Exposure to other specified factors, initial encounter; Y93.89 Activity, other specified; Y92.89 Other specified places as the place of occurrence of the external cause; Y99.8 Other external cause status

== ENCOUNTER → 2020-05-21 | Outpatient (CLI) | payer MEDICARE ==
[~2020-05-21] MED LIST changes: +DIAZEPAM5 MG PO; +OMEPRAZOLE20 M2 PO; +SERTRALINE HYD100 MG PO
[2020-05-21 12:38] LABS: ALBUMIN 3.5 gm/dl (3.1-4.5); ALKALINE PHOSPHATASE 103 U/L (45-117); BUN 20 mg/dl (7-24); CHLORIDE 104 mmol/L (98-107); CREATININE 1.01 mg/dL (0.55-1.02); SGOT/AST 20 IU/L (3-35); SGPT/ALT 28 U/L (12-78); SODIUM 138 mmol/L (136-145); TOTAL PROTEIN 7.2 gm/dL (6.4-8.2)
== END | disposition home or self-care (01) ==
LOC: LAB 11:44
PROVIDERS: ATTEND Family Medicine
DX: R53.83 Other fatigue (principal); E74.9 Disorder of carbohydrate metabolism, unspecified; R68.2 Dry mouth, unspecified; Z79.899 Other long term (current) drug therapy

== ENCOUNTER 2020-05-22 11:06 | Emergency (ER) | payer MEDICARE ==
[~2020-05-22] VITALS: Wt 74.4 kg
[~2020-05-22 11:06] MED LIST changes: -DIAZEPAM5 MG PO; -OMEPRAZOLE20 M2 PO; -SERTRALINE HYD100 MG PO
[2020-05-22 11:20] VITALS: BP 110/75
== END 2020-05-22 11:44 | disposition left against medical advice (07) ==
LOC: ED 11:06
DX: Z53.21 Procedure and treatment not carried out due to patient leaving prior to being seen by health care provider (principal)

== ENCOUNTER 2020-06-05 08:37 | Emergency (ER) | payer MEDICARE ==
[~2020-06-05] VITALS: Wt 74.8 kg
[2020-06-05 08:48] VITALS: BP 127/77
[2020-06-05 09:08] LABS: BASO % 0.1 % (0.0-1.0); HEMATOCRIT 48.4 % (37.0-47.0); LYMPH # 2.1 10*3/uL (1.3-4.4); LYMPH % 26.6 % (27.0-41.0); MEAN CELL VOLUME 91.5 fl (81.0-99.0); MEAN CORPUSCULAR HGB 29.9 pg (27.0-31.0); MEAN CORPUSCULAR HGB CONC 32.6 g/dl (33.0-37.0); MONO # 0.6 10*3/uL (0.1-1.0); MONO % 7.8 % (3.0-9.0); NEUT # 5.1 10*3/uL (2.3-7.9); PLATELET COUNT AUTOMATED 320 10*3/uL (130-400); RED BLOOD COUNT 5.29 10*6/uL (4.10-5.10); RED CELL DISTRI WIDTH 12.6 % (0-14.5); WHITE BLOOD COUNT 7.9 10*3/uL (4.8-10.8)
[2020-06-05 09:18] LABS: ACT PARTIAL THROMBO TIME 26.8 SECONDS (20.0-32.1)
[2020-06-05 09:25] LABS: BUN 21 mg/dl (7-24); CHLORIDE 104 mmol/L (98-107); CREATININE 1.03 mg/dL (0.55-1.02); POTASSIUM 4.2 mmol/L (3.5-5.1); SODIUM 138 mmol/L (136-145)
[2020-06-05 09:28] LABS: TROPONIN I < 0.015 ng/ml (<0.045)
[2020-06-05 09:52] LABS: URINE AMPHETAMINES < 1000 (1000ng/ml); URINE BARBITURATES < 200 (200ng/ml); URINE BENZODIAZEPINES > 200 (200ng/ml); URINE CANNABINOIDS (THC) < 50 (50ng/ml); URINE COCAINE < 300 (300ng/ml); URINE METHADONE < 300 (300ng/ml); URINE OPIATES < 300 (300ng/ml)
[2020-06-05 09:55] LABS: URINE PHENCYCLIDINE < 25 (25ng/ml)
== END 2020-06-05 11:58 | disposition home or self-care (01) ==
LOC: ED 08:37
PROVIDERS: Emergency Medicine
DX: F41.1 Generalized anxiety disorder (principal); J44.9 Chronic obstructive pulmonary disease, unspecified; F41.9 Anxiety disorder, unspecified; N18.30 Chronic kidney disease, stage 3 unspecified; K21.9 Gastro-esophageal reflux disease without esophagitis; E78.00 Pure hypercholesterolemia, unspecified; Z88.2 Allergy status to sulfonamides; Z79.899 Other long term (current) drug therapy

== ENCOUNTER 2020-07-13 12:17 | Observation (INO) | payer MEDICARE ==
[~2020-07-13] VITALS: Ht 157.4 cm; Wt 74.5 kg
[2020-07-13 12:26] VITALS: BP 120/88
[2020-07-13 13:13] LABS: HEMATOCRIT 43.2 % (37.0-47.0); LYMPH # 1.5 10*3/uL (1.3-4.4); LYMPH % 20.1 % (27.0-41.0); MEAN CELL VOLUME 88.5 fl (81.0-99.0); MEAN CORPUSCULAR HGB 28.9 pg (27.0-31.0); MEAN CORPUSCULAR HGB CONC 32.6 g/dl (33.0-37.0); MONO # 0.6 10*3/uL (0.1-1.0); MONO % 7.4 % (3.0-9.0); NEUT # 5.4 10*3/uL (2.3-7.9); NEUT % 72.1 % (47.0-73.0); PLATELET COUNT AUTOMATED 263 10*3/uL (130-400); RED BLOOD COUNT 4.88 10*6/uL (4.10-5.10); RED CELL DISTRI WIDTH 12.1 % (0-14.5); WHITE BLOOD COUNT 7.6 10*3/uL (4.8-10.8)
[2020-07-13 13:23] LABS: ACT PARTIAL THROMBO TIME 24.7 SECONDS (20.0-32.1)
[2020-07-13 13:30] LABS: ALBUMIN 3.2 gm/dl (3.1-4.5); ALKALINE PHOSPHATASE 84 U/L (45-117); BUN 15 mg/dl (7-24); CHLORIDE 108 mmol/L (98-107); CREATININE 0.99 mg/dL (0.55-1.02); SGOT/AST 14 IU/L (3-35); SGPT/ALT 27 U/L (12-78); SODIUM 141 mmol/L (136-145); TOTAL PROTEIN 6.2 gm/dL (6.4-8.2)
[2020-07-13 13:34] VITALS: BP 136/58
[2020-07-13 13:34] LABS: ABG BASE EXCESS 1.6 mmol/L (-2.0-2.0); ARTERIAL BLOOD GAS PH 7.532 (7.35-7.45)
[2020-07-13 13:41] LABS: ETHYL ALCOHOL < 3.0 mg/dl (<3); TROPONIN I < 0.015 ng/ml (<0.045)
[2020-07-13 13:55] LABS: BILIRUBIN Negative (Negative); BLOOD Negative (Negative); CLARITY Clear (Clear); COLOR Yellow (Yellow); GLUCOSE Negative (Negative); KETONE Negative (Negative); LEUKO ESTERASE 1+ (Negative); NITRITE Negative (Negative); UROBILINOGEN 0.2 E.U./dl (0.0-1.0)
--- NOTE | 2020-07-13 14:00 | NUR ---
pt refused iv ativan, reports she was just weaned off ativan, notified agusto stahlim ordered.
[2020-07-13 14:02] LABS: URINE AMPHETAMINES < 1000 (1000ng/ml); URINE BARBITURATES < 200 (200ng/ml); URINE BENZODIAZEPINES > 200 (200ng/ml); URINE CANNABINOIDS (THC) > 50 (50ng/ml); URINE COCAINE < 300 (300ng/ml); URINE METHADONE < 300 (300ng/ml); URINE OPIATES < 300 (300ng/ml)
[2020-07-13 14:06] LABS: URINE PHENCYCLIDINE < 25 (25ng/ml)
[2020-07-13 14:19] LABS: BACTERIA TRACE; RBC 0-2 rbc/hpf (0-2)
--- NOTE | 2020-07-13 14:49 | NUR ---
PT FEELING "A LITTLE BETTER",CALL LIGHT WITHIN REACH AND WILL CONTINUE TO MONITOR.
[2020-07-13 15:11] VITALS: BP 121/68
--- NOTE | 2020-07-13 16:23 | NUR ---
PT W/O DISTRESS NOTED,POSITIONED FOR COMFORT.
--- NOTE | 2020-07-13 16:35 | NUR ---
PT CONTINUES TO HYPERVENTILATE SELF WHILE IN EXAM ROOM, PT WAS NOTIFIED THAT SHE NEEDS TO SLOW HER BREATHING AND INSTRUCTED HOW TO DO SO,ACKNOWLEDGEMENT GIVEN AND PT CONTINUES TO DO SO,SAO2 @ 97% RA.NO DISTRESS NOTED.
[2020-07-13] MEDS ORDERED: DIAZEPAM5 MG PO (16:46)
[2020-07-13] MEDS ORDERED: BUSPAR15 MG PO (16:47)
[2020-07-13] MEDS ORDERED: SERTRALINE HYD100 MG PO (16:48)
[2020-07-13 16:57] VITALS: BP 130/70
[2020-07-13 17:20] VITALS: BP 136/80
--- NOTE | 2020-07-13 19:00 | NUR ---
ARRIVED ON SHIFT, REPORT RECEIVED FROM OFFGOING NURSE, ASSUMED CARE OF PATIENT.
--- NOTE | 2020-07-13 19:25 | NUR ---
INTRODUCED SELF TO PATIENT, BED IN LOW POSITION, WHEEL LOCKS ENGAGED, SIDE RAILS UP X 2 FOR TURNING AND REPOSITIONING, CALL LIGHT WITHIN REACH, NO NEEDS VOICED AT THIS TIME. WHITE BOARD UPDATED.
[2020-07-13 20:00] VITALS: BP 96/50
--- NOTE | 2020-07-13 21:55 | NUR ---
CALL PLACED TO DR. BLAKELY, REVIEWED PATIENTS CURRENT HOME MEDICATIONS, ORDERS OBTAINED.
[2020-07-14] VITALS: BP 112/58
--- NOTE | 2020-07-14 03:51 | NUR ---
24 HR chart check completed.
[2020-07-14 12:00] VITALS: BP 148/80
[2020-07-14 16:00] VITALS: BP 127/63
[2020-07-14 20:00] VITALS: BP 120/69
--- NOTE | 2020-07-14 22:13 | NUR ---
PRN VAILUM GIVEN AT THIS TIME FOR C/O ANXIETY. CALL LIGHT IS WITHIN REACH. WILL MONITOR EFFECT OF MEDICATION.
--- NOTE | 2020-07-14 22:16 | NUR ---
ASSUMED CARE OF PATIENT. PATIENT IS RESTING IN BED WITH EASY AND REGULAR RESPERS. ASSESSMENT IS COMPLETE WITH NO S/S OF DISTRESS NOTED AT THIS TIME. PATIENT C/O ANXIETY/INSOMNIA PRN VALIUM GIVEN AT THIS TIME. BED IS LOW, LOCKED, AND CALL LIGHT IS WITHIN REACH. SEE INTERVENTIONS.
--- NOTE | 2020-07-14 23:00 | NUR ---
PRN VAILUM EFFECTIVE PER PATIENT. CALL LIGHT IS WITHIN REACH.
[2020-07-15] VITALS: BP 123/66
--- NOTE | 2020-07-15 01:44 | NUR ---
CALLED DR. CORADO IN REGARDS TO PATIENT C/O RESTLESS LEGS. ORDERED TO GIVE ANOTHER DOSE OF REQUIP.
--- NOTE | 2020-07-15 04:51 | NUR ---
CHART CHECK COMPLETE.
[2020-07-15 08:00] VITALS: BP 136/59
--- NOTE | 2020-07-15 09:05 | NUR ---
ZOFRAN GIVEN FOR C/O NAUSEA. WILL MONITOR.
--- NOTE | 2020-07-15 09:07 | NUR ---
VALIUM GIVEN FOR C/O ANXIETY. WILL MONITOR.
--- NOTE | 2020-07-15 10:10 | NUR ---
ZOFRAN EFFECTIVE PER PT.
--- NOTE | 2020-07-15 10:10 | NUR ---
VALIUM EFFECTIVE PER PT.
--- NOTE | 2020-07-15 11:44 | NUR ---
Airplane Captain in to talk to patient this morning in Room 519-1 Patient states that she Lives with her Son There are 7 steps in the home. Physician: Dr. Perez Pharmacy: [facility] Home health services: None at this time. [facility]. Patient's level of ADLs: Independent Patient has working utilities: All are working DME: None Follow-up physician's appointment after d/c: Per Hospitalist Nurse Director Does patient want to access PORTAL?: No Discharge plan discussed with Pt. Pt. would like to return home at discharge. Voiced no needs at this time. Independent in her Care. Pt. Son will provide transportation at discharge. CHEVY KIMBROUGH LPN
[2020-07-15 12:00] VITALS: BP 132/56
--- NOTE | 2020-07-15 12:41 | NUR ---
PT PROGRESS NOTE Pt was seen for evaluation while on 5th floor with moderate complexity determined. No further recommendations following acute care discharge, pt lives with son in 2 story home with single floor setup and 3 steps to enter. Son assists pt as needed. Refer to evaluation form for further details and thank you for this referral. Nadine Noe, PT
[2020-07-15 16:00] VITALS: BP 125/66
--- NOTE | 2020-07-15 17:18 | NUR ---
VALIUM GIVEN FOR C/O ANXIETY. WILL MONITOR.
--- NOTE | 2020-07-15 18:20 | NUR ---
VALIUM EFFECTIVE PER PT.
--- NOTE | 2020-07-15 19:20 | NUR ---
ASSUMED CARE OF PATIENT. PATIENT IS AAOX3 RESTING IN BED WITH EASY AND REGULAR RESPERS ON ROOM AIR. ASSESSMENT IS COMPLETE WITH NO S/S OF DISTRESS NOTED AT THIS TIME. PATIENT C/O HEARTBURN. BED IS LOW, LOCKED, AND CALL LIGHT IS WITHIN REACH. SEE INTERVENTIONS.
--- NOTE | 2020-07-15 19:37 | NUR ---
CONTACTED DR. RONDON IN REGARDS TO PATIENT C/O HEARTBURN. TUMS ORDERED.
--- NOTE | 2020-07-15 19:49 | NUR ---
CHART CHECK COMPLETE.
[2020-07-15 20:00] VITALS: BP 120/80
--- NOTE | 2020-07-15 20:35 | NUR ---
PRN TUMS GIVEN AT THIS TIME FOR C/O HEARTBURN. CALL LIGHT IS WITHIN REACH. WILL MONITOR EFFECT OF MEDICATION.
--- NOTE | 2020-07-15 21:00 | NUR ---
TUMS EFFECTIVE PER PATIENT. CALL LIGHT IS WITHIN REACH.
[2020-07-16] VITALS: BP 124/62
--- NOTE | 2020-07-16 01:00 | NUR ---
PATIENT SLEEPING, RESPERS EASY AND REGULAR. CALL LIGHT IS WITHIN REACH.
[2020-07-16] MEDS ORDERED: OMEPRAZOLE20 M2 PO (09:33)
[2020-07-16 12:00] VITALS: BP 120/71
--- NOTE | 2020-07-16 14:09 | NUR ---
MSDDischarge instructions reviewed with patient/family. Patient receptive and verbalizes understanding. Follow-up care arranged. Written instructions given to patient/family. RESIDNET LEFT WITH ALL BELONGING AND DISCHARGE INSTRUCTIONS INHAND. RESIDNET WAS TAKEN DOWN VIA W/C. ANUPAMA LIEBERMAN
--- NOTE | 2020-07-17 09:59 | NUR ---
PHYSICAL THERAPY CO-SIGN I approve of the Physical Therapy notes written above. LARRY BERNARDO PT, DPT
== END 2020-07-16 14:23 | disposition home or self-care (01) ==
LOC: ED 12:17 → 5E 16:04 → EDHOLD 16:04 → 5E 16:30
PROVIDERS: Emergency Medicine; ADMIT Internal Medicine; ATTEND Internal Medicine
DX: J44.1 Chronic obstructive pulmonary disease with (acute) exacerbation (principal); F33.9 Major depressive disorder, recurrent, unspecified; F41.1 Generalized anxiety disorder; F41.0 Panic disorder [episodic paroxysmal anxiety]; G25.81 Restless legs syndrome; E55.9 Vitamin D deficiency, unspecified; E87.2 Acidosis; I12.9 Hypertensive chronic kidney disease with stage 1 through stage 4 chronic kidney disease, or unspecified chronic kidney disease; N18.30 Chronic kidney disease, stage 3 unspecified; K21.00 Gastro-esophageal reflux disease with esophagitis, without bleeding; E66.9 Obesity, unspecified; Z68.31 Body mass index [BMI] 31.0-31.9, adult; E46 Unspecified protein-calorie malnutrition

== ENCOUNTER → 2020-08-29 | Outpatient (CLI) | payer MEDICARE ==
[~2020-08-29] MED LIST changes: +DIAZEPAM5 MG PO; +OMEPRAZOLE20 M2 PO; +SERTRALINE HYD100 MG PO
[2020-08-29 14:31] LABS: THYROXINE (T4) TOTAL 8.1 ug/dl (4.8-13.9)
[2020-08-29 14:37] LABS: THYROID STIM HORMONE (HS) 2.42 uIU/ml (0.358-4.75)
== END | disposition home or self-care (01) ==
LOC: LAB 13:23
PROVIDERS: ATTEND Psychiatry & Neurology Neurology
DX: F41.9 Anxiety disorder, unspecified (principal)

== ENCOUNTER 2020-11-22 08:55 | Inpatient (IN) | payer MEDICARE ==
[~2020-11-22] VITALS: Ht 157.4 cm; Wt 71.4 kg
[2020-11-22 09:06] VITALS: BP 121/101
[2020-11-22 09:47] LABS: BASO % 0.1 % (0.0-1.0); HEMATOCRIT 48.1 % (37.0-47.0); LYMPH # 1.1 10*3/uL (1.3-4.4); LYMPH % 13.7 % (27.0-41.0); MEAN CELL VOLUME 89.4 fl (81.0-99.0); MEAN CORPUSCULAR HGB 28.8 pg (27.0-31.0); MEAN CORPUSCULAR HGB CONC 32.2 g/dl (33.0-37.0); MEAN PLATELET VOLUME 9.4 fl (9.6-12.3); MONO # 0.6 10*3/uL (0.1-1.0); MONO % 7.7 % (3.0-9.0); NEUT # 6.4 10*3/uL (2.3-7.9); NEUT % 78.1 % (47.0-73.0); PLATELET COUNT AUTOMATED 274 10*3/uL (130-400); RED BLOOD COUNT 5.38 10*6/uL (4.10-5.10); RED CELL DISTRI WIDTH 13.6 % (0-14.5); WHITE BLOOD COUNT 8.2 10*3/uL (4.8-10.8)
[2020-11-22 10:05] LABS: ALBUMIN 3.5 gm/dl (3.1-4.5); ALKALINE PHOSPHATASE 72 U/L (45-117); BUN 10 mg/dl (7-24); CHLORIDE 108 mmol/L (98-107); CREATININE 0.92 mg/dL (0.55-1.02); LIPASE 61 U/L (73-393); POTASSIUM 4.2 mmol/L (3.5-5.1); SGOT/AST 16 IU/L (3-35); SGPT/ALT 23 U/L (12-78); SODIUM 138 mmol/L (136-145); TOTAL PROTEIN 7.2 gm/dL (6.4-8.2); TROPONIN I < 0.015 ng/ml (<0.045)
[2020-11-22 10:29] LABS: BILIRUBIN Negative (Negative); BLOOD Negative (Negative); CLARITY Clear (Clear); COLOR Yellow (Yellow); GLUCOSE Negative (Negative); KETONE Negative (Negative); LEUKO ESTERASE 2+ (Negative); NITRITE Negative (Negative); UROBILINOGEN 0.2 E.U./dl (0.0-1.0)
[2020-11-22 10:45] LABS: BACTERIA 2+; RBC 0-2 rbc/hpf (0-2)
[2020-11-22 11:02] VITALS: BP 110/80
[2020-11-22 12:12] VITALS: BP 112/80
[2020-11-22 13:30] VITALS: BP 143/98
[2020-11-22] MEDS ORDERED: METFORMIN HCL500 M2 PO (13:43)
[2020-11-22] MEDS ORDERED: ROPINIROLE HY0.25 MG PO (13:43)
[2020-11-22] MEDS ORDERED: MELATONIN5 M7 PO (14:30)
[2020-11-22 20:00] VITALS: BP 131/66
[2020-11-23] VITALS: BP 114/52
[2020-11-23 06:13] LABS: ALBUMIN 3.5 gm/dl (3.1-4.5); BUN 12 mg/dl (7-24); CHLORIDE 106 mmol/L (98-107); POTASSIUM 4.1 mmol/L (3.5-5.1); SODIUM 139 mmol/L (136-145)
[2020-11-23 06:21] LABS: ALKALINE PHOSPHATASE 74 U/L (45-117); CREATININE 0.98 mg/dL (0.55-1.02); FREE T4 1.01 ng/dl (0.76-1.46); SGOT/AST 14 IU/L (3-35); SGPT/ALT 22 U/L (12-78); TOTAL PROTEIN 7.1 gm/dL (6.4-8.2)
[2020-11-23 06:24] LABS: BASO % 0.1 % (0.0-1.0); HEMATOCRIT 47.8 % (37.0-47.0); LYMPH # 1.4 10*3/uL (1.3-4.4); LYMPH % 16.4 % (27.0-41.0); MEAN CELL VOLUME 91.9 fl (81.0-99.0); MEAN CORPUSCULAR HGB 28.7 pg (27.0-31.0); MEAN CORPUSCULAR HGB CONC 31.2 g/dl (33.0-37.0); MEAN PLATELET VOLUME 9.9 fl (9.6-12.3); MONO # 0.7 10*3/uL (0.1-1.0); MONO % 8.1 % (3.0-9.0); NEUT # 6.4 10*3/uL (2.3-7.9); NEUT % 74.9 % (47.0-73.0); PLATELET COUNT AUTOMATED 299 10*3/uL (130-400); RED CELL DISTRI WIDTH 13.5 % (0-14.5); WHITE BLOOD COUNT 8.5 10*3/uL (4.8-10.8)
[2020-11-23 08:00] VITALS: BP 149/75
[2020-11-23 12:00] VITALS: BP 119/55
[2020-11-23 16:00] VITALS: BP 101/63
[2020-11-23 20:00] VITALS: BP 113/66
[2020-11-24] VITALS: BP 99/53
[2020-11-24 05:49] LABS: BUN 20 mg/dl (7-24); CHLORIDE 106 mmol/L (98-107); CREATININE 1.06 mg/dL (0.55-1.02); POTASSIUM 4.1 mmol/L (3.5-5.1); SODIUM 141 mmol/L (136-145)
[2020-11-24 08:00] VITALS: BP 127/73
[2020-11-24 12:00] VITALS: BP 127/69
[2020-11-24 16:00] VITALS: BP 145/71
[2020-11-24 20:00] VITALS: BP 155/66
[2020-11-25] VITALS: BP 120/75
[2020-11-25 06:24] LABS: CHLORIDE 106 mmol/L (98-107); POTASSIUM 3.8 mmol/L (3.5-5.1); SODIUM 140 mmol/L (136-145)
[2020-11-25 06:29] LABS: BUN 22 mg/dl (7-24); CREATININE 1.08 mg/dL (0.55-1.02)
[2020-11-25 08:00] VITALS: BP 129/84
[2020-11-25 12:00] VITALS: BP 111/68
[2020-11-25 15:38] LABS: URINE AMPHETAMINES < 1000 (1000ng/ml); URINE BARBITURATES < 200 (200ng/ml); URINE BENZODIAZEPINES < 200 (200ng/ml); URINE CANNABINOIDS (THC) > 50 (50ng/ml); URINE COCAINE < 300 (300ng/ml); URINE METHADONE < 300 (300ng/ml); URINE OPIATES < 300 (300ng/ml)
[2020-11-25 15:40] LABS: URINE PHENCYCLIDINE < 25 (25ng/ml)
[2020-11-25 16:00] VITALS: BP 115/52
[2020-11-25 20:00] VITALS: BP 110/75
[2020-11-26] VITALS: BP 106/50
[2020-11-26 05:31] LABS: CREATININE 1.03 mg/dL (0.55-1.02)
[2020-11-26 05:54] LABS: BASO % 0.1 % (0.0-1.0); HEMATOCRIT 44.2 % (37.0-47.0); LYMPH # 2.1 10*3/uL (1.3-4.4); LYMPH % 26.5 % (27.0-41.0); MEAN CELL VOLUME 90.4 fl (81.0-99.0); MEAN CORPUSCULAR HGB 29.2 pg (27.0-31.0); MEAN CORPUSCULAR HGB CONC 32.4 g/dl (33.0-37.0); MEAN PLATELET VOLUME 9.7 fl (9.6-12.3); MONO # 0.8 10*3/uL (0.1-1.0); MONO % 10.3 % (3.0-9.0); NEUT # 4.9 10*3/uL (2.3-7.9); NEUT % 62.3 % (47.0-73.0); PLATELET COUNT AUTOMATED 250 10*3/uL (130-400); RED BLOOD COUNT 4.89 10*6/uL (4.10-5.10); RED CELL DISTRI WIDTH 13.8 % (0-14.5); WHITE BLOOD COUNT 7.9 10*3/uL (4.8-10.8)
[2020-11-26 08:00] VITALS: BP 120/61
[2020-11-26 12:00] VITALS: BP 130/78
[2020-11-26 16:00] VITALS: BP 100/53
[2020-11-26] MEDS ORDERED: ATARAX,VISTARIL50 MG PO (16:57)
[2020-11-26] MEDS ORDERED: PREDNISONE10 MG PO (16:57)
[2020-11-26] MEDS ORDERED: VITAMIN E400 UNI3 PO (16:57)
[2020-11-26] MEDS ORDERED: SERTRALINE HYD100 MG PO (16:57)
[2020-11-26] MEDS ORDERED: ROPINIROLE HY0.25 MG PO (16:57)
[2020-11-26] MEDS ORDERED: MUCINEX1200 M1 PO (18:32)
[2020-11-26] MEDS ORDERED: RESTORIL15 MG PO (18:33)
[2020-11-26] MEDS ORDERED: PANTOPRAZOLE SO40 MG PO (18:33)
== END 2020-11-26 17:36 | DRG 190 ==
LOC: ED 08:55 → EDHOLD 11:58 → 4E 11:58
PROVIDERS: Emergency Medicine; Hospitalist; Internal Medicine; ADMIT Family Medicine; ATTEND Family Medicine
DX: J44.1 Chronic obstructive pulmonary disease with (acute) exacerbation (principal); N17.0 Acute kidney failure with tubular necrosis; N39.0 Urinary tract infection, site not specified; J45.51 Severe persistent asthma with (acute) exacerbation; F33.2 Major depressive disorder, recurrent severe without psychotic features; F41.1 Generalized anxiety disorder; F34.1 Dysthymic disorder; H43.392 Other vitreous opacities, left eye; G25.81 Restless legs syndrome; R53.1 Weakness; R11.0 Nausea; E55.9 Vitamin D deficiency, unspecified; F41.0 Panic disorder [episodic paroxysmal anxiety]; R73.03 Prediabetes; E87.8 Other disorders of electrolyte and fluid balance, not elsewhere classified; R73.9 Hyperglycemia, unspecified; F41.9 Anxiety disorder, unspecified; Z20.822 Contact with and (suspected) exposure to COVID-19; G24.01 Drug induced subacute dyskinesia; N18.30 Chronic kidney disease, stage 3 unspecified; K21.9 Gastro-esophageal reflux disease without esophagitis; Z88.2 Allergy status to sulfonamides; Z87.891 Personal history of nicotine dependence; Z82.5 Family history of asthma and other chronic lower respiratory diseases; Z81.8 Family history of other mental and behavioral disorders; Z80.8 Family history of malignant neoplasm of other organs or systems; Z79.899 Other long term (current) drug therapy; Z79.84 Long term (current) use of oral hypoglycemic drugs

== ENCOUNTER 2020-11-26 18:05 | Inpatient (IN) | payer MEDICARE ==
[~2020-11-26] VITALS: Ht 157.4 cm; Wt 71.2 kg
[~2020-11-26 18:05] MED LIST changes: +ATARAX,VISTARIL50 MG PO; +MELATONIN5 M7 PO; +METFORMIN HCL500 M2 PO; +VITAMIN E400 UNI3 PO
[2020-11-26] MEDS ORDERED: MUCINEX1200 M1 PO (18:32)
[2020-11-26] MEDS ORDERED: RESTORIL15 MG PO (18:33)
[2020-11-26] MEDS ORDERED: PANTOPRAZOLE SO40 MG PO (18:33)
[2020-11-26 18:46] VITALS: BP 128/78
[2020-11-26 19:34] VITALS: BP 128/78
[2020-11-27 06:16] LABS: BASO % 0.1 % (0.0-1.0); HEMATOCRIT 45.9 % (37.0-47.0); LYMPH # 2.1 10*3/uL (1.3-4.4); LYMPH % 26.9 % (27.0-41.0); MEAN CELL VOLUME 88.8 fl (81.0-99.0); MEAN CORPUSCULAR HGB CONC 32.7 g/dl (33.0-37.0); MEAN PLATELET VOLUME 9.3 fl (9.6-12.3); MONO # 0.8 10*3/uL (0.1-1.0); MONO % 10.5 % (3.0-9.0); NEUT # 4.7 10*3/uL (2.3-7.9); NEUT % 61.7 % (47.0-73.0); PLATELET COUNT AUTOMATED 275 10*3/uL (130-400); RED BLOOD COUNT 5.17 10*6/uL (4.10-5.10); RED CELL DISTRI WIDTH 13.8 % (0-14.5); WHITE BLOOD COUNT 7.6 10*3/uL (4.8-10.8)
[2020-11-27 06:30] LABS: ALBUMIN 3.4 gm/dl (3.1-4.5); ALKALINE PHOSPHATASE 65 U/L (45-117); BUN 23 mg/dl (7-24); CHLORIDE 106 mmol/L (98-107); CHOLESTEROL 275 mg/dL (<200); POTASSIUM 3.7 mmol/L (3.5-5.1); SGOT/AST 27 IU/L (3-35); SGPT/ALT 29 U/L (12-78); SODIUM 138 mmol/L (136-145); TOTAL PROTEIN 6.6 gm/dL (6.4-8.2); TRIGLYCERIDES 138 mg/dl (<150)
[2020-11-27 06:32] LABS: LDL CHOLESTEROL 178 mg/dL (9-159)
[2020-11-27 06:55] LABS: VITAMIN D, 25-HYDROXY 27.2 ng/mL (30-100)
[2020-11-27 07:27] VITALS: BP 110/57
[2020-11-27 20:00] VITALS: BP 122/72
[2020-11-28 07:34] VITALS: BP 128/60
[2020-11-28 17:07] LABS: BILIRUBIN Negative (Negative); BLOOD Negative (Negative); CLARITY Clear (Clear); COLOR Yellow (Yellow); GLUCOSE Negative (Negative); KETONE Negative (Negative); LEUKO ESTERASE 2+ (Negative); NITRITE Negative (Negative); SPECIFIC GRAVITY 1.015 (1.001-1.030); UROBILINOGEN 0.2 E.U./dl (0.0-1.0)
[2020-11-28 17:46] LABS: BACTERIA 2+; MUCOUS 1+; WBC 16-20 wbc/hpf (0-5); YEAST TRACE
[2020-11-28 20:00] VITALS: BP 118/66
[2020-11-29 07:08] VITALS: BP 106/68
[2020-11-29 19:18] VITALS: BP 122/69
[2020-11-30 07:45] VITALS: BP 125/63
[2020-11-30 20:00] VITALS: BP 98/67
[2020-12-01 07:40] VITALS: BP 133/70
[2020-12-01 20:00] VITALS: BP 117/65
[2020-12-02 07:16] VITALS: BP 109/90
[2020-12-02 19:21] VITALS: BP 118/64
[2020-12-03 07:43] VITALS: BP 120/53
[2020-12-03 20:00] VITALS: BP 106/57
[2020-12-04 07:59] VITALS: BP 108/53
[2020-12-04 20:00] VITALS: BP 93/60
[2020-12-05 07:59] VITALS: BP 113/88
[2020-12-05 20:00] VITALS: BP 101/47
[2020-12-05 20:31] VITALS: BP 135/61
[2020-12-06 07:30] VITALS: BP 112/59
[2020-12-06 20:00] VITALS: BP 108/66
[2020-12-07 07:09] VITALS: BP 120/54
[2020-12-07 20:00] VITALS: BP 108/60
[2020-12-08 07:36] VITALS: BP 121/64
[2020-12-08 20:00] VITALS: BP 126/68
[2020-12-09 07:36] VITALS: BP 116/69
[2020-12-09 20:00] VITALS: BP 108/24
[2020-12-10 07:51] VITALS: BP 108/65
[2020-12-10] MEDS ORDERED: TIZANIDINE HCL4 MG PO (09:50)
[2020-12-10] MEDS ORDERED: ROPINIROLE HYDRO1 MG PO (09:50)
[2020-12-10] MEDS ORDERED: IMIPRAMINE HCL50 MG PO (09:50)
[2020-12-10] MEDS ORDERED: ATARAX,VISTARIL50 MG PO (09:50)
[2020-12-10] MEDS ORDERED: REQUIP2 MG PO (09:51)
[2020-12-10] MEDS ORDERED: VITAMIN D350 MC2 PO (09:51)
[2020-12-10] MEDS ORDERED: VITAMIN E400 UNI3 PO (09:51)
[2020-12-12 00:06] LABS: DESIPRAMINE 54 ng/mL (Not Estab.); IMIPRAMINE (TORFANIL) 206 ng/mL (Not Estab.); TOTAL IMIPRAMINE + DESIPRAMINE 260 ng/mL (175-300)
== END 2020-12-10 13:25 | disposition home or self-care (01) | DRG 885 ==
LOC: 3N 18:05
PROVIDERS: Counselor Professional; ADMIT Psychiatry & Neurology Psychiatry; ATTEND Psychiatry & Neurology Psychiatry
DX: F33.2 Major depressive disorder, recurrent severe without psychotic features (principal); N18.30 Chronic kidney disease, stage 3 unspecified; J45.901 Unspecified asthma with (acute) exacerbation; K21.9 Gastro-esophageal reflux disease without esophagitis; J44.9 Chronic obstructive pulmonary disease, unspecified; F34.1 Dysthymic disorder; F41.0 Panic disorder [episodic paroxysmal anxiety]; G24.01 Drug induced subacute dyskinesia; E55.9 Vitamin D deficiency, unspecified; Z68.30 Body mass index [BMI] 30.0-30.9, adult; Z88.2 Allergy status to sulfonamides

== ENCOUNTER 2021-01-03 11:32 | Emergency (ER) | payer MEDICARE ==
[~2021-01-03] VITALS: Ht 157.4 cm; Wt 74.4 kg
[2021-01-03 11:44] VITALS: BP 128/64
== END 2021-01-03 14:20 | disposition home or self-care (01) ==
LOC: ED 11:32
DX: Z04.3 Encounter for examination and observation following other accident (principal); Z79.899 Other long term (current) drug therapy; Z79.84 Long term (current) use of oral hypoglycemic drugs; Z98.890 Other specified postprocedural states; W19.XXXA Unspecified fall, initial encounter; Y93.89 Activity, other specified; Y92.89 Other specified places as the place of occurrence of the external cause; Y99.8 Other external cause status

== ENCOUNTER → 2021-01-03 | Outpatient (CLI) | payer MEDICARE ==
[~2021-01-03] MED LIST changes: +MUCINEX1200 M1 PO; +PANTOPRAZOLE SO40 MG PO; +REQUIP2 MG PO; +RESTORIL15 MG PO; +ROPINIROLE HYDRO1 MG PO; +TIZANIDINE HCL4 MG PO; +VITAMIN D350 MC2 PO
[2021-01-07 00:06] LABS: DESIPRAMINE 201 ng/mL (Not Estab.); IMIPRAMINE (TORFANIL) 292 ng/mL (Not Estab.); TOTAL IMIPRAMINE + DESIPRAMINE 493 ng/mL (175-300)
== END | disposition home or self-care (01) ==
LOC: LAB 11:16
PROVIDERS: ATTEND Psychiatry & Neurology Child & Adolescent Psychiatry
DX: F33.1 Major depressive disorder, recurrent, moderate (principal); Z79.899 Other long term (current) drug therapy

== ENCOUNTER 2022-02-17 20:11 | Inpatient (IN) | payer MEDICARE ==
[~2022-02-17] VITALS: Ht 157.4 cm; Wt 79.5 kg
[~2022-02-17 20:11] MED LIST changes: +AUSTEDO 12 MG PO; +DESIPRAMINE PO; +DOXYCYCLINE HY100 M3 PO; +GOOD SENSE ALLE10 M2 PO; +MECLIZINE HCL25 M2 PO; +OMEPRAZOLE40 MG PO; +ONDANSETRON HYDR4 MG PO; +OXYGEN NAS; +RAMELTEON8 MG PO
[2022-02-17 20:24] VITALS: BP 131/87
[2022-02-17 22:05] LABS: BASO % 0.4 % (0.0-1.0); EOS # 0.3 10*3/uL (0.0-0.4); EOS % 2.8 % (1.0-4.0); HEMATOCRIT 41.4 % (37.0-47.0); LYMPH # 0.9 10*3/uL (1.3-4.4); LYMPH % 9.2 % (27.0-41.0); MEAN CELL VOLUME 87.5 fl (81.0-99.0); MEAN CORPUSCULAR HGB 28.1 pg (27.0-31.0); MEAN CORPUSCULAR HGB CONC 32.1 g/dl (33.0-37.0); MEAN PLATELET VOLUME 9.4 fl (9.6-12.3); MONO # 0.7 10*3/uL (0.1-1.0); MONO % 7.4 % (3.0-9.0); NEUT # 7.7 10*3/uL (2.3-7.9); NEUT % 79.9 % (47.0-73.0); PLATELET COUNT AUTOMATED 310 10*3/uL (130-400); RED BLOOD COUNT 4.73 10*6/uL (4.10-5.10); RED CELL DISTRI WIDTH 13.2 % (0-14.5); WHITE BLOOD COUNT 9.6 10*3/uL (4.8-10.8)
[2022-02-17 22:20] LABS: ALKALINE PHOSPHATASE 833 U/L (45-117); BUN 12 mg/dl (7-24); CHLORIDE 103 mmol/L (98-107); CREATININE 1.03 mg/dL (0.55-1.02); LIPASE 167 U/L (73-393); POTASSIUM 4.3 mmol/L (3.5-5.1); SGOT/AST 683 IU/L (3-35); SGPT/ALT 754 U/L (12-78); SODIUM 138 mmol/L (136-145); TOTAL PROTEIN 6.5 gm/dL (6.4-8.2)
[2022-02-17 22:55] LABS: BILIRUBIN Negative (Negative); BLOOD Negative (Negative); CLARITY Clear (Clear); COLOR Yellow (Yellow); GLUCOSE Negative (Negative); KETONE Negative (Negative); LEUKO ESTERASE 2+ (Negative); NITRITE Negative (Negative); PH 6.5 (4.5-8.0); SPECIFIC GRAVITY <= 1.005 (1.001-1.030)
[2022-02-17 23:03] LABS: BACTERIA 2+; RBC 0-2 rbc/hpf (0-2); WBC 31-40 wbc/hpf (0-5)
[2022-02-17 23:35] VITALS: BP 130/61
[2022-02-18] VITALS (11 sets, daily range): BP systolic 122–167; BP diastolic 62–88
[2022-02-18] MEDS ORDERED: DEUTETRABENAZINE 12 MG PO (03:00)
[2022-02-18] MEDS ORDERED: 'CLONIDINE0.1 MG PO (03:02)
[2022-02-18] MEDS ORDERED: ROPINIROLE HYDRO3 MG PO (03:03)
[2022-02-18] MEDS ORDERED: ROZEREM8 MG PO (03:03)
[2022-02-18] MEDS ORDERED: LIPITOR20 MG PO (03:04)
[2022-02-18] MEDS ORDERED: TRELEGY ELLIPT1 EAC1 INH (03:06)
[2022-02-18 06:08] LABS: ALKALINE PHOSPHATASE 796 U/L (45-117); BUN 10 mg/dl (7-24); CHLORIDE 108 mmol/L (98-107); CHOLESTEROL 127 mg/dL (<200); CREATININE 0.91 mg/dL (0.55-1.02); LDL CHOLESTEROL 49 mg/dL (9-159); POTASSIUM 4.5 mmol/L (3.5-5.1); SGOT/AST 615 IU/L (3-35); SGPT/ALT 729 U/L (12-78); SODIUM 143 mmol/L (136-145); TOTAL PROTEIN 6.2 gm/dL (6.4-8.2); TRIGLYCERIDES 43 mg/dl (<150)
[2022-02-18 06:19] LABS: BASO % 0.3 % (0.0-1.0); EOS # 0.4 10*3/uL (0.0-0.4); EOS % 5.8 % (1.0-4.0); HEMATOCRIT 41.6 % (37.0-47.0); LYMPH % 15.8 % (27.0-41.0); MEAN CELL VOLUME 90.4 fl (81.0-99.0); MEAN CORPUSCULAR HGB 28.5 pg (27.0-31.0); MEAN CORPUSCULAR HGB CONC 31.5 g/dl (33.0-37.0); MEAN PLATELET VOLUME 9.8 fl (9.6-12.3); MONO # 0.5 10*3/uL (0.1-1.0); NEUT # 4.6 10*3/uL (2.3-7.9); NEUT % 69.8 % (47.0-73.0); PLATELET COUNT AUTOMATED 291 10*3/uL (130-400); RED CELL DISTRI WIDTH 13.4 % (0-14.5); WHITE BLOOD COUNT 6.6 10*3/uL (4.8-10.8)
[2022-02-19] VITALS: BP 132/84
[2022-02-19 06:04] LABS: BASO % 0.1 % (0.0-1.0); HEMATOCRIT 39.8 % (37.0-47.0); LYMPH # 0.5 10*3/uL (1.3-4.4); LYMPH % 4.2 % (27.0-41.0); MEAN CORPUSCULAR HGB 29.5 pg (27.0-31.0); MEAN CORPUSCULAR HGB CONC 33.2 g/dl (33.0-37.0); MEAN PLATELET VOLUME 9.9 fl (9.6-12.3); MONO # 0.8 10*3/uL (0.1-1.0); MONO % 5.8 % (3.0-9.0); NEUT # 11.4 10*3/uL (2.3-7.9); NEUT % 88.3 % (47.0-73.0); PLATELET COUNT AUTOMATED 283 10*3/uL (130-400); RED BLOOD COUNT 4.47 10*6/uL (4.10-5.10); RED CELL DISTRI WIDTH 13.2 % (0-14.5); WHITE BLOOD COUNT 12.9 10*3/uL (4.8-10.8)
[2022-02-19 06:06] LABS: BUN 11 mg/dl (7-24); CHLORIDE 104 mmol/L (98-107); POTASSIUM 4.9 mmol/L (3.5-5.1); SGOT/AST 390 IU/L (3-35); SGPT/ALT 647 U/L (12-78); SODIUM 137 mmol/L (136-145); TOTAL PROTEIN 6.4 gm/dL (6.4-8.2)
[2022-02-19 06:07] LABS: ALKALINE PHOSPHATASE 770 U/L (45-117); CREATININE 0.92 mg/dL (0.55-1.02)
[2022-02-19 08:00] VITALS: BP 153/76
[2022-02-19] MEDS ORDERED: PERCOCET 5-3251 EACH PO (10:07)
[2022-02-19] MEDS ORDERED: COLACE100 MG PO (10:07)
[2022-02-19] MEDS ORDERED: ONDANSETRON HYDR4 M1 PO (10:07)
[2022-02-19 12:00] VITALS: BP 143/90
[2022-02-19 16:00] VITALS: BP 115/54
[2022-02-19 20:00] VITALS: BP 127/77
[2022-02-20] VITALS: BP 130/55
[2022-02-20 06:27] LABS: BASO % 0.2 % (0.0-1.0); EOS # 0.1 10*3/uL (0.0-0.4); EOS % 0.7 % (1.0-4.0); LYMPH # 1.6 10*3/uL (1.3-4.4); LYMPH % 12.3 % (27.0-41.0); MEAN CELL VOLUME 88.9 fl (81.0-99.0); MEAN CORPUSCULAR HGB 29.1 pg (27.0-31.0); MEAN CORPUSCULAR HGB CONC 32.7 g/dl (33.0-37.0); MEAN PLATELET VOLUME 9.9 fl (9.6-12.3); MONO # 1.2 10*3/uL (0.1-1.0); MONO % 8.8 % (3.0-9.0); NEUT # 10.3 10*3/uL (2.3-7.9); NEUT % 77.5 % (47.0-73.0); PLATELET COUNT AUTOMATED 290 10*3/uL (130-400); RED BLOOD COUNT 4.16 10*6/uL (4.10-5.10); RED CELL DISTRI WIDTH 13.3 % (0-14.5); WHITE BLOOD COUNT 13.2 10*3/uL (4.8-10.8)
[2022-02-20 06:28] LABS: BUN 17 mg/dl (7-24); CHLORIDE 104 mmol/L (98-107); CREATININE 0.98 mg/dL (0.55-1.02); POTASSIUM 4.6 mmol/L (3.5-5.1); SGOT/AST 150 IU/L (3-35); SGPT/ALT 416 U/L (12-78); SODIUM 139 mmol/L (136-145)
[2022-02-20 06:30] LABS: ALKALINE PHOSPHATASE 599 U/L (45-117); TOTAL PROTEIN 6.4 gm/dL (6.4-8.2)
[2022-02-20 08:00] VITALS: BP 112/61
[2022-02-20 12:00] VITALS: BP 120/60
[2022-02-20 16:00] VITALS: BP 112/58
[2022-02-20 20:00] VITALS: BP 133/59
[2022-02-21] VITALS: BP 142/63
[2022-02-21 06:15] LABS: BUN 13 mg/dl (7-24); CHLORIDE 101 mmol/L (98-107); CREATININE 0.87 mg/dL (0.55-1.02); POTASSIUM 3.9 mmol/L (3.5-5.1); SODIUM 138 mmol/L (136-145)
[2022-02-21 06:22] LABS: BASO % 0.4 % (0.0-1.0); EOS # 0.2 10*3/uL (0.0-0.4); EOS % 1.8 % (1.0-4.0); HEMATOCRIT 37.2 % (37.0-47.0); LYMPH # 1.7 10*3/uL (1.3-4.4); MEAN CORPUSCULAR HGB 28.7 pg (27.0-31.0); MEAN CORPUSCULAR HGB CONC 32.3 g/dl (33.0-37.0); MEAN PLATELET VOLUME 9.7 fl (9.6-12.3); MONO % 8.7 % (3.0-9.0); NEUT # 8.3 10*3/uL (2.3-7.9); NEUT % 73.6 % (47.0-73.0); PLATELET COUNT AUTOMATED 315 10*3/uL (130-400); RED BLOOD COUNT 4.18 10*6/uL (4.10-5.10); RED CELL DISTRI WIDTH 13.2 % (0-14.5); WHITE BLOOD COUNT 11.2 10*3/uL (4.8-10.8)
[2022-02-21 08:00] VITALS: BP 130/54
[2022-02-21 12:00] VITALS: BP 135/95
[2022-02-21 16:00] VITALS: BP 101/53
[2022-02-21 20:00] VITALS: BP 100/44
[2022-02-22] VITALS: BP 118/60
[2022-02-22 06:09] LABS: BASO % 0.4 % (0.0-1.0); EOS # 0.3 10*3/uL (0.0-0.4); HEMATOCRIT 38.2 % (37.0-47.0); LYMPH # 1.8 10*3/uL (1.3-4.4); LYMPH % 19.9 % (27.0-41.0); MEAN CORPUSCULAR HGB 28.8 pg (27.0-31.0); MEAN CORPUSCULAR HGB CONC 32.7 g/dl (33.0-37.0); MEAN PLATELET VOLUME 9.4 fl (9.6-12.3); MONO # 0.7 10*3/uL (0.1-1.0); MONO % 8.1 % (3.0-9.0); NEUT % 67.9 % (47.0-73.0); PLATELET COUNT AUTOMATED 316 10*3/uL (130-400); RED BLOOD COUNT 4.34 10*6/uL (4.10-5.10); RED CELL DISTRI WIDTH 13.1 % (0-14.5); WHITE BLOOD COUNT 8.9 10*3/uL (4.8-10.8)
[2022-02-22 06:14] LABS: BUN 13 mg/dl (7-24); CHLORIDE 101 mmol/L (98-107); SODIUM 139 mmol/L (136-145)
[2022-02-22 08:00] VITALS: BP 136/54
[2022-02-22 12:00] VITALS: BP 137/73
== END 2022-02-22 13:05 | disposition home or self-care (01) | DRG 417 ==
LOC: ED 20:11 → 5E 02-18 00:53 → EDHOLD 02-18 00:53 → 5E 02-18 01:16
PROVIDERS: Emergency Medicine; Internal Medicine; ADMIT Student in an Organized Health Care Education/Training Program; ATTEND Student in an Organized Health Care Education/Training Program
PROC: 0FT44ZZ Resection of Gallbladder, Percutaneous Endoscopic Approach (ICD-10-PCS; principal; 2022-02-18)
DX: K80.00 Calculus of gallbladder with acute cholecystitis without obstruction (principal); N17.0 Acute kidney failure with tubular necrosis; N39.0 Urinary tract infection, site not specified; E44.0 Moderate protein-calorie malnutrition; K21.9 Gastro-esophageal reflux disease without esophagitis; N18.30 Chronic kidney disease, stage 3 unspecified; F41.9 Anxiety disorder, unspecified; G25.81 Restless legs syndrome; K44.9 Diaphragmatic hernia without obstruction or gangrene; R73.9 Hyperglycemia, unspecified; F41.1 Generalized anxiety disorder; H43.392 Other vitreous opacities, left eye; F34.1 Dysthymic disorder; J44.9 Chronic obstructive pulmonary disease, unspecified; E55.9 Vitamin D deficiency, unspecified; F41.0 Panic disorder [episodic paroxysmal anxiety]; R73.03 Prediabetes; Z88.2 Allergy status to sulfonamides; Z80.8 Family history of malignant neoplasm of other organs or systems; Z87.891 Personal history of nicotine dependence; Z81.8 Family history of other mental and behavioral disorders; Z83.6 Family history of other diseases of the respiratory system; Z68.32 Body mass index [BMI] 32.0-32.9, adult; K57.90 Diverticulosis of intestine, part unspecified, without perforation or abscess without bleeding

== ENCOUNTER 2022-02-25 15:20 | Emergency (ER) | payer MEDICARE ==
[~2022-02-25] VITALS: Wt 77.6 kg
[~2022-02-25 15:20] MED LIST changes: +COLACE100 MG PO; +DEUTETRABENAZINE 12 MG PO; +ONDANSETRON HYDR4 M1 PO; +PERCOCET 5-3251 EACH PO; +ROPINIROLE HYDRO3 MG PO; +ROZEREM8 MG PO; +TRELEGY ELLIPT1 EAC1 INH
[2022-02-25 15:46] VITALS: BP 105/75
== END 2022-02-25 16:44 | disposition home or self-care (01) ==
LOC: ED 15:20
DX: K11.7 Disturbances of salivary secretion (principal); Z90.49 Acquired absence of other specified parts of digestive tract; Z88.2 Allergy status to sulfonamides; Z79.899 Other long term (current) drug therapy; Z90.89 Acquired absence of other organs; Z87.891 Personal history of nicotine dependence

== ENCOUNTER 2022-03-08 10:23 | Emergency (ER) | payer MEDICARE ==
[~2022-03-08] VITALS: Ht 157.4 cm; Wt 82.1 kg
[2022-03-08 11:04] VITALS: BP 155/86
[2022-03-08 12:00] LABS: BASO % 0.2 % (0.0-1.0); EOS # 0.1 10*3/uL (0.0-0.4); EOS % 0.6 % (1.0-4.0); HEMATOCRIT 36.6 % (37.0-47.0); LYMPH # 0.9 10*3/uL (1.3-4.4); MEAN CELL VOLUME 88.8 fl (81.0-99.0); MEAN CORPUSCULAR HGB 28.9 pg (27.0-31.0); MEAN CORPUSCULAR HGB CONC 32.5 g/dl (33.0-37.0); MONO % 8.2 % (3.0-9.0); NEUT # 10.5 10*3/uL (2.3-7.9); NEUT % 83.7 % (47.0-73.0); PLATELET COUNT AUTOMATED 491 10*3/uL (130-400); RED BLOOD COUNT 4.12 10*6/uL (4.10-5.10); RED CELL DISTRI WIDTH 12.8 % (0-14.5); WHITE BLOOD COUNT 12.5 10*3/uL (4.8-10.8)
[2022-03-08 12:16] LABS: ALKALINE PHOSPHATASE 218 U/L (45-117); BUN 8 mg/dl (7-24); CHLORIDE 97 mmol/L (98-107); CREATININE 1.01 mg/dL (0.55-1.02); LIPASE 89 U/L (73-393); POTASSIUM 3.7 mmol/L (3.5-5.1); SGOT/AST 30 IU/L (3-35); SGPT/ALT 34 U/L (12-78); SODIUM 133 mmol/L (136-145); TOTAL PROTEIN 6.9 gm/dL (6.4-8.2)
[2022-03-08 13:39] LABS: BILIRUBIN Negative (Negative); BLOOD Negative (Negative); CLARITY Cloudy (Clear); COLOR Dark Yellow (Yellow); GLUCOSE Negative (Negative); KETONE Trace (Negative); LEUKO ESTERASE 1+ (Negative); NITRITE Negative (Negative); PH 5.5 (4.5-8.0); SPECIFIC GRAVITY 1.025 (1.001-1.030)
[2022-03-08 14:02] LABS: BACTERIA 2+; RBC 0-2 rbc/hpf (0-2)
[2022-03-08 14:03] LABS: EPITHELIAL CELLS TNTC
== END 2022-03-08 16:10 | disposition short-term general hospital (02) ==
LOC: ED 10:23
PROVIDERS: Nurse Practitioner Family
DX: T81.41XA Infection following a procedure, superficial incisional surgical site, initial encounter (principal); L02.211 Cutaneous abscess of abdominal wall; R11.2 Nausea with vomiting, unspecified; F41.9 Anxiety disorder, unspecified; Z90.49 Acquired absence of other specified parts of digestive tract; Z88.2 Allergy status to sulfonamides; Z79.899 Other long term (current) drug therapy; Z90.89 Acquired absence of other organs; Z87.891 Personal history of nicotine dependence

== ENCOUNTER 2022-03-17 10:24 | Emergency (ER) | payer MEDICARE ==
[~2022-03-17] VITALS: Ht 157.4 cm; Wt 77.6 kg
[2022-03-17 10:26] VITALS: BP 154/78
[2022-03-17 11:37] LABS: BASO # 0.1 10*3/uL (0.0-0.1); BASO % 0.5 % (0.0-1.0); EOS # 0.2 10*3/uL (0.0-0.4); EOS % 2.1 % (1.0-4.0); HEMATOCRIT 35.7 % (37.0-47.0); LYMPH # 1.1 10*3/uL (1.3-4.4); LYMPH % 10.3 % (27.0-41.0); MEAN CELL VOLUME 91.3 fl (81.0-99.0); MEAN CORPUSCULAR HGB 28.6 pg (27.0-31.0); MEAN CORPUSCULAR HGB CONC 31.4 g/dl (33.0-37.0); MEAN PLATELET VOLUME 8.8 fl (9.6-12.3); MONO # 0.5 10*3/uL (0.1-1.0); NEUT # 8.4 10*3/uL (2.3-7.9); PLATELET COUNT AUTOMATED 458 10*3/uL (130-400); RED BLOOD COUNT 3.91 10*6/uL (4.10-5.10); RED CELL DISTRI WIDTH 14.2 % (0-14.5); WHITE BLOOD COUNT 10.6 10*3/uL (4.8-10.8)
[2022-03-17 11:55] LABS: ALKALINE PHOSPHATASE 150 U/L (45-117); BUN 9 mg/dl (7-24); CHLORIDE 106 mmol/L (98-107); CREATININE 0.76 mg/dL (0.55-1.02); LIPASE 65 U/L (73-393); POTASSIUM 3.8 mmol/L (3.5-5.1); SGOT/AST 21 IU/L (3-35); SGPT/ALT 22 U/L (12-78); SODIUM 136 mmol/L (136-145); TOTAL PROTEIN 6.4 gm/dL (6.4-8.2)
[2022-03-17 12:31] LABS: BILIRUBIN Negative (Negative); BLOOD Negative (Negative); CLARITY Clear (Clear); COLOR Yellow (Yellow); GLUCOSE Negative (Negative); KETONE Negative (Negative); LEUKO ESTERASE Negative (Negative); NITRITE Negative (Negative); PH 5.5 (4.5-8.0); SPECIFIC GRAVITY 1.015 (1.001-1.030); UROBILINOGEN 0.2 E.U./dl (0.0-1.0)
[2022-03-17] MEDS ORDERED: ONDANSETRON HYDR4 M1 PO ×2 (13:15)
[2022-03-17] MEDS ORDERED: HYDROCODONE-AC1 EAC1 PO ×2 (13:15)
[2022-03-17 13:45] LABS: BACTERIA TRACE; WBC 0-2 wbc/hpf (0-5)
[2022-03-23] MEDS ORDERED: REQUIP2 MG PO (09:01)
[2022-03-23] MEDS ORDERED: TRELEGY ELLIPT1 EACH INH (09:01)
== END 2022-03-17 13:35 | disposition home or self-care (01) ==
LOC: ED 10:24
PROVIDERS: Family Medicine
DX: T81.41XA Infection following a procedure, superficial incisional surgical site, initial encounter (principal); Z48.03 Encounter for change or removal of drains; Z88.2 Allergy status to sulfonamides; Z79.899 Other long term (current) drug therapy; Z90.89 Acquired absence of other organs; Z87.891 Personal history of nicotine dependence; Y92.89 Other specified places as the place of occurrence of the external cause

== ENCOUNTER → 2022-03-21 | Emergency (ER) | payer MEDICARE ==
[~2022-03-21] VITALS: Ht 157.4 cm; Wt 77.6 kg
[~2022-03-21] MED LIST changes: +HYDROCODONE-AC1 EAC1 PO; +TRELEGY ELLIPT1 EACH INH; +VISTARIL50 MG PO
[2022-03-21 17:53] VITALS: BP 180/97
== END ==
LOC: ED 17:46
DX: Z53.21 Procedure and treatment not carried out due to patient leaving prior to being seen by health care provider (principal)

== ENCOUNTER 2022-06-03 10:05 | Emergency (ER) | payer MEDICARE ==
[~2022-06-03] VITALS: Ht 157.4 cm; Wt 77.1 kg
[2022-06-03 10:31] VITALS: BP 109/58
[2022-06-03] MEDS ORDERED: PREDNISONE50 MG PO (11:30)
== END 2022-06-03 11:58 | disposition home or self-care (01) ==
LOC: ED 10:05
DX: L25.9 Unspecified contact dermatitis, unspecified cause (principal); Z88.2 Allergy status to sulfonamides; Z79.899 Other long term (current) drug therapy; Z90.89 Acquired absence of other organs; Z90.49 Acquired absence of other specified parts of digestive tract; Z87.891 Personal history of nicotine dependence

== ENCOUNTER 2023-04-18 08:40 | Emergency (ER) | payer MEDICARE ==
[~2023-04-18] VITALS: Ht 162.5 cm; Wt 72.6 kg
[2023-04-18 08:44] VITALS: BP 153/88
[2023-04-18 09:11] LABS: HEMATOCRIT 40.4 % (37.0-47.0); MEAN CELL VOLUME 88.4 fl (81.0-99.0); MEAN CORPUSCULAR HGB 29.3 pg (27.0-31.0); MEAN CORPUSCULAR HGB CONC 33.2 g/dl (33.0-37.0); MEAN PLATELET VOLUME 9.5 fl (9.6-12.3); PLATELET COUNT AUTOMATED 319 10*3/uL (130-400); RED BLOOD COUNT 4.57 10*6/uL (4.10-5.10); RED CELL DISTRI WIDTH 13.6 % (0-14.5); WHITE BLOOD COUNT 12.4 10*3/uL (4.8-10.8)
[2023-04-18 09:19] LABS: MANUAL DIFF REFLEX YES
[2023-04-18 09:29] LABS: ACT PARTIAL THROMBO TIME 24.5 SECONDS (20.0-32.1)
[2023-04-18 09:33] LABS: ALKALINE PHOSPHATASE 89 U/L (46-116); BUN 22 mg/dl (9-23); CHLORIDE 104 mmol/L (98-107); POTASSIUM 4.1 mmol/L (3.4-5.1); SGPT/ALT 41 U/L (10-49); TOTAL PROTEIN 6.6 gm/dL (6.0-8.0)
[2023-04-18 09:48] LABS: PLATELET SUFFICIENCY NORMAL (NORMAL); POLYCHROMASIA SLIGHT; TOTAL CELLS COUNTED 100 #CELLS; TOXIC GRANULATION SLIGHT
[2023-04-18] MEDS ORDERED: AVPAK AZITHROM250 M1 PO (10:02)
[2023-04-18] MEDS ORDERED: PREDNISONE20 M1 PO (10:02)
== END 2023-04-18 11:30 | disposition home or self-care (01) ==
LOC: ED 08:40
PROVIDERS: Emergency Medicine
DX: J44.1 Chronic obstructive pulmonary disease with (acute) exacerbation (principal); J45.901 Unspecified asthma with (acute) exacerbation; F32.A Depression, unspecified; F41.9 Anxiety disorder, unspecified; Z86.16 Personal history of COVID-19; Z88.2 Allergy status to sulfonamides; Z90.89 Acquired absence of other organs; Z98.890 Other specified postprocedural states; Z90.49 Acquired absence of other specified parts of digestive tract; Z87.891 Personal history of nicotine dependence

== ENCOUNTER 2023-05-13 07:42 | Inpatient (IN) | payer MEDICARE ==
[~2023-05-13] VITALS: Ht 157.5 cm; Wt 90.3 kg
[~2023-05-13 07:42] MED LIST changes: +FAMOTIDINE20 M1 PO; +FUROSEMIDE40 MG PO; +HYDROXYZINE PAM50 MG PO; +INGREZZA80 MG PO; +Nystatin 100,000 UNI PO; +ROPINIROLE HYDRO4 MG PO
[2023-05-13 07:57] VITALS: BP 134/78
[2023-05-13 08:14] LABS: HEMATOCRIT 37.2 % (37.0-47.0); MEAN CELL VOLUME 91.6 fl (81.0-99.0); MEAN CORPUSCULAR HGB 28.3 pg (27.0-31.0); MEAN CORPUSCULAR HGB CONC 30.9 g/dl (33.0-37.0); MEAN PLATELET VOLUME 9.3 fl (9.6-12.3); PLATELET COUNT AUTOMATED 232 10*3/uL (130-400); RED BLOOD COUNT 4.06 10*6/uL (4.10-5.10); RED CELL DISTRI WIDTH 13.8 % (0-14.5)
[2023-05-13 08:15] LABS: MANUAL DIFF REFLEX YES
[2023-05-13 08:28] LABS: ACT PARTIAL THROMBO TIME 23.6 SECONDS (20.0-32.1); INTERNATIONAL NORM RATIO 0.9 (2.0-3.5)
[2023-05-13 08:35] VITALS: BP 128/75
[2023-05-13 08:36] LABS: TOTAL CELLS COUNTED 100 #CELLS
[2023-05-13 08:37] LABS: PLATELET SUFFICIENCY NORMAL (NORMAL); POLYCHROMASIA SLIGHT; TOXIC GRANULATION SLIGHT
[2023-05-13 08:44] LABS: ALKALINE PHOSPHATASE 72 U/L (46-116); BUN 22 mg/dl (9-23); CHLORIDE 106 mmol/L (98-107); POTASSIUM 4.3 mmol/L (3.4-5.1); SGPT/ALT 32 U/L (5-49); TOTAL PROTEIN 5.7 gm/dL (6.0-8.0)
[2023-05-13 10:18] VITALS: BP 129/88
[2023-05-13 10:40] VITALS: BP 140/59
[2023-05-13] MEDS ORDERED: INGREZZA80 MG PO (11:31)
[2023-05-13] MEDS ORDERED: TRELEGY ELLIPT1 EAC1 INH (11:37)
[2023-05-13 15:19] VITALS: BP 138/57
[2023-05-13 20:00] VITALS: BP 143/72
[2023-05-14] VITALS: BP 140/62
[2023-05-14 06:19] LABS: POTASSIUM 3.7 mmol/L (3.4-5.1)
[2023-05-14 06:21] LABS: BASO % 0.3 % (0.0-1.0); EOS # 0.1 10*3/uL (0.0-0.4); EOS % 1.1 % (1.0-4.0); HEMATOCRIT 38.4 % (37.0-47.0); LYMPH # 1.6 10*3/uL (1.3-4.4); LYMPH % 16.6 % (27.0-41.0); MEAN CELL VOLUME 89.9 fl (81.0-99.0); MEAN CORPUSCULAR HGB 28.6 pg (27.0-31.0); MEAN CORPUSCULAR HGB CONC 31.8 g/dl (33.0-37.0); MEAN PLATELET VOLUME 9.6 fl (9.6-12.3); MONO # 0.8 10*3/uL (0.1-1.0); MONO % 8.4 % (3.0-9.0); NEUT # 6.9 10*3/uL (2.3-7.9); NEUT % 71.2 % (47.0-73.0); PLATELET COUNT AUTOMATED 290 10*3/uL (130-400); RED BLOOD COUNT 4.27 10*6/uL (4.10-5.10); RED CELL DISTRI WIDTH 13.9 % (0-14.5); WHITE BLOOD COUNT 9.7 10*3/uL (4.8-10.8)
[2023-05-14 08:00] VITALS: BP 140/72
[2023-05-14 12:00] VITALS: BP 101/57
[2023-05-14 16:00] VITALS: BP 116/62
[2023-05-14 20:00] VITALS: BP 127/80
[2023-05-15] VITALS: BP 100/83
[2023-05-15 08:00] VITALS: BP 106/57
[2023-05-15 12:00] VITALS: BP 115/64
[2023-05-15 16:00] VITALS: BP 96/62
[2023-05-15 20:00] VITALS: BP 133/64
[2023-05-16] VITALS: BP 132/59
[2023-05-16 05:34] LABS: BUN 20 mg/dl (9-23); CHLORIDE 99 mmol/L (98-107); POTASSIUM 3.8 mmol/L (3.4-5.1)
[2023-05-16 06:11] LABS: BASO % 0.4 % (0.0-1.0); EOS # 0.3 10*3/uL (0.0-0.4); EOS % 3.5 % (1.0-4.0); HEMATOCRIT 34.5 % (37.0-47.0); LYMPH # 1.7 10*3/uL (1.3-4.4); LYMPH % 21.4 % (27.0-41.0); MEAN CORPUSCULAR HGB 29.3 pg (27.0-31.0); MEAN CORPUSCULAR HGB CONC 31.9 g/dl (33.0-37.0); MEAN PLATELET VOLUME 9.8 fl (9.6-12.3); MONO # 0.7 10*3/uL (0.1-1.0); MONO % 8.1 % (3.0-9.0); NEUT # 5.1 10*3/uL (2.3-7.9); NEUT % 63.9 % (47.0-73.0); PLATELET COUNT AUTOMATED 268 10*3/uL (130-400); RED BLOOD COUNT 3.75 10*6/uL (4.10-5.10); RED CELL DISTRI WIDTH 13.7 % (0-14.5)
[2023-05-16 08:00] VITALS: BP 95/77
[2023-05-16 12:00] VITALS: BP 126/51
== END 2023-05-16 13:00 | disposition home or self-care (01) | DRG 871 ==
LOC: ED 07:42 → 4E 09:37 → EDHOLD 09:37 → 4E 10:46
PROVIDERS: Internal Medicine; Registered Nurse; ADMIT Family Medicine; ATTEND Family Medicine
DX: A41.9 Sepsis, unspecified organism (principal); I50.33 Acute on chronic diastolic (congestive) heart failure; J15.69 Pneumonia due to other Gram-negative bacteria; J44.0 Chronic obstructive pulmonary disease with (acute) lower respiratory infection; E44.0 Moderate protein-calorie malnutrition; I13.0 Hypertensive heart and chronic kidney disease with heart failure and stage 1 through stage 4 chronic kidney disease, or unspecified chronic kidney disease; N17.9 Acute kidney failure, unspecified; N18.31 Chronic kidney disease, stage 3a; E55.9 Vitamin D deficiency, unspecified; I25.10 Atherosclerotic heart disease of native coronary artery without angina pectoris; G25.81 Restless legs syndrome; K21.9 Gastro-esophageal reflux disease without esophagitis; Z66 Do not resuscitate; K44.9 Diaphragmatic hernia without obstruction or gangrene; R65.20 Severe sepsis without septic shock; K57.90 Diverticulosis of intestine, part unspecified, without perforation or abscess without bleeding; F34.1 Dysthymic disorder; F41.1 Generalized anxiety disorder; R73.9 Hyperglycemia, unspecified; Z91.013 Allergy to seafood; Z79.899 Other long term (current) drug therapy; Z79.51 Long term (current) use of inhaled steroids; Z86.16 Personal history of COVID-19; Z90.49 Acquired absence of other specified parts of digestive tract; Z87.891 Personal history of nicotine dependence; Z82.5 Family history of asthma and other chronic lower respiratory diseases; Z81.8 Family history of other mental and behavioral disorders; Z80.9 Family history of malignant neoplasm, unspecified; Z68.36 Body mass index [BMI] 36.0-36.9, adult; Z99.81 Dependence on supplemental oxygen

== ENCOUNTER 2023-06-21 09:59 | Emergency (ER) | payer MEDICARE ==
[2023-06-21 10:12] VITALS: BP 142/75
[2023-06-21 11:28] LABS: BASO % 0.4 % (0.0-1.0); EOS # 0.2 10*3/uL (0.0-0.4); HEMATOCRIT 35.4 % (37.0-47.0); MEAN CELL VOLUME 90.1 fl (81.0-99.0); MEAN CORPUSCULAR HGB 29.3 pg (27.0-31.0); MEAN CORPUSCULAR HGB CONC 32.5 g/dl (33.0-37.0); MEAN PLATELET VOLUME 9.1 fl (9.6-12.3); MONO # 0.8 10*3/uL (0.1-1.0); MONO % 9.5 % (3.0-9.0); NEUT # 5.9 10*3/uL (2.3-7.9); NEUT % 74.6 % (47.0-73.0); PLATELET COUNT AUTOMATED 316 10*3/uL (130-400); RED BLOOD COUNT 3.93 10*6/uL (4.10-5.10); RED CELL DISTRI WIDTH 13.2 % (0-14.5); WHITE BLOOD COUNT 7.9 10*3/uL (4.8-10.8)
[2023-06-21 11:44] LABS: BILIRUBIN Negative (Negative); BLOOD Negative (Negative); CLARITY Clear (Clear); COLOR Yellow (Yellow); GLUCOSE Negative (Negative); KETONE Negative (Negative); LEUKO ESTERASE Negative (Negative); NITRITE Negative (Negative); PH 5.5 (4.5-8.0); UROBILINOGEN 0.2 E.U./dl (0.0-1.0)
[2023-06-21 11:48] LABS: ALKALINE PHOSPHATASE 93 U/L (46-116); BUN 9 mg/dl (9-23); CHLORIDE 100 mmol/L (98-107); LIPASE 27 U/L (12-53); POTASSIUM 4.1 mmol/L (3.4-5.1); SGPT/ALT 21 U/L (5-49); TOTAL PROTEIN 6.2 gm/dL (6.0-8.0)
[2023-06-21 11:51] LABS: URINE AMPHETAMINES Negative (1000ng/ml); URINE BARBITURATES Negative (200ng/ml); URINE BENZODIAZEPINES Negative (200ng/ml); URINE CANNABINOIDS (THC) Negative (50ng/ml); URINE COCAINE Negative (300ng/ml); URINE METHADONE Negative (300ng/ml); URINE OPIATES Negative (300ng/ml); URINE PHENCYCLIDINE Negative (25ng/ml)
[2023-06-21 12:08] LABS: RBC 0-2 rbc/hpf (0-2); WBC 0-2 wbc/hpf (0-5)
[2023-06-21] MEDS ORDERED: METRONIDAZOLE500 M1 PO (13:01)
[2023-06-21] MEDS ORDERED: CIPRO500 MG PO (13:01)
== END 2023-06-21 13:06 | disposition home or self-care (01) ==
LOC: ED 09:59
PROVIDERS: Family Medicine; Nurse Practitioner Family
DX: K57.92 Diverticulitis of intestine, part unspecified, without perforation or abscess without bleeding (principal); I13.0 Hypertensive heart and chronic kidney disease with heart failure and stage 1 through stage 4 chronic kidney disease, or unspecified chronic kidney disease; I50.33 Acute on chronic diastolic (congestive) heart failure; N18.30 Chronic kidney disease, stage 3 unspecified; K21.9 Gastro-esophageal reflux disease without esophagitis; J44.9 Chronic obstructive pulmonary disease, unspecified; E44.0 Moderate protein-calorie malnutrition; Z88.2 Allergy status to sulfonamides; Z79.899 Other long term (current) drug therapy; Z90.89 Acquired absence of other organs; Z90.49 Acquired absence of other specified parts of digestive tract; Z87.891 Personal history of nicotine dependence

== ENCOUNTER 2023-06-24 17:45 | Emergency (ER) | payer MEDICARE ==
[~2023-06-24] VITALS: Ht 157.4 cm; Wt 84.4 kg
[~2023-06-24 17:45] MED LIST changes: +CIPRO500 MG PO; +METRONIDAZOLE500 M1 PO
[2023-06-24 18:44] LABS: BASO % 0.3 % (0.0-1.0); EOS # 0.2 10*3/uL (0.0-0.4); EOS % 1.9 % (1.0-4.0); HEMATOCRIT 38.2 % (37.0-47.0); LYMPH % 9.4 % (27.0-41.0); MEAN CELL VOLUME 92.5 fl (81.0-99.0); MEAN CORPUSCULAR HGB 29.1 pg (27.0-31.0); MEAN CORPUSCULAR HGB CONC 31.4 g/dl (33.0-37.0); MEAN PLATELET VOLUME 9.1 fl (9.6-12.3); MONO # 0.7 10*3/uL (0.1-1.0); MONO % 6.3 % (3.0-9.0); NEUT # 8.9 10*3/uL (2.3-7.9); NEUT % 81.2 % (47.0-73.0); PLATELET COUNT AUTOMATED 386 10*3/uL (130-400); RED BLOOD COUNT 4.13 10*6/uL (4.10-5.10); RED CELL DISTRI WIDTH 13.1 % (0-14.5)
[2023-06-24 18:58] LABS: ACT PARTIAL THROMBO TIME 29.7 SECONDS (20.0-32.1)
[2023-06-24 19:06] LABS: ALKALINE PHOSPHATASE 89 U/L (46-116); BUN 10 mg/dl (9-23); CHLORIDE 101 mmol/L (98-107); LIPASE 27 U/L (12-53); POTASSIUM 4.5 mmol/L (3.4-5.1); SGPT/ALT 18 U/L (5-49); TOTAL PROTEIN 6.4 gm/dL (6.0-8.0)
[2023-06-24 19:16] LABS: BILIRUBIN Negative (Negative); BLOOD Negative (Negative); CLARITY Cloudy (Clear); COLOR Yellow (Yellow); GLUCOSE Negative (Negative); KETONE Trace (Negative); LEUKO ESTERASE 2+ (Negative); NITRITE Negative (Negative); PH 5.5 (4.5-8.0)
[2023-06-24 19:37] LABS: BACTERIA 1+; RBC 0-2 rbc/hpf (0-2)
[2023-06-24 23:29] VITALS: BP 160/74
== END 2023-06-25 03:20 | disposition short-term general hospital (02) ==
LOC: ED 17:45
PROVIDERS: Physician Assistant Medical
DX: K57.32 Diverticulitis of large intestine without perforation or abscess without bleeding (principal); I50.9 Heart failure, unspecified; J45.909 Unspecified asthma, uncomplicated; K21.9 Gastro-esophageal reflux disease without esophagitis; J44.9 Chronic obstructive pulmonary disease, unspecified; F32.A Depression, unspecified; F41.9 Anxiety disorder, unspecified; E78.00 Pure hypercholesterolemia, unspecified; N18.30 Chronic kidney disease, stage 3 unspecified; Z88.2 Allergy status to sulfonamides; Z90.89 Acquired absence of other organs; Z90.49 Acquired absence of other specified parts of digestive tract; Z98.890 Other specified postprocedural states; Z87.891 Personal history of nicotine dependence